=== PATIENT | male | born 1945 | race Caucasian/White ===

== ENCOUNTER 2017-07-22 15:24 | Outpatient (CLI) | payer MEDICARE, OTHER | END 2017-07-22 15:25 | disposition home or self-care (01) | LOC: BICULT 15:24 | PROVIDERS: ATTEND Specialist | DX: R10.9 Unspecified abdominal pain (principal); N28.1 Cyst of kidney, acquired; Z95.5 Presence of coronary angioplasty implant and graft | CPT/HCPCS: 76700 ==

== ENCOUNTER 2017-11-05 16:31 | Outpatient (CLI) | payer MEDICARE, OTHER | END 2017-11-05 16:32 | disposition home or self-care (01) | LOC: BICRAD 16:31 | PROVIDERS: ATTEND Specialist | DX: M25.512 Pain in left shoulder (principal); M19.012 Primary osteoarthritis, left shoulder ==

== ENCOUNTER 2018-01-30 08:45 | Inpatient (IN) | payer MEDICARE ==
[2018-01-30 12:41] VITALS: BMI 38.0
--- NOTE | 2018-02-07 08:29 | HP ---
DATE OF ADMISSION: 02/10/2018 HISTORY OF PRESENT ILLNESS: The patient is a 72-year-old male who has a several-month history of pro gressive left hip, thigh and knee pain without injury. He has had progressive pain despite rest, res triction of activities and use of a cane. The pain is interfering with day-to-day activities includi ng walking, getting dressed and sleeping. No significant relief with use of Mobic or Tylenol No. 3. PAST MEDICAL HISTORY: The patient is otherwise in good health. He has a history of hypertension, pr evious stroke, previous abdominal aortic aneurysm repair. He has been seen and cleared for surgery b yesenia Orta. CURRENT MEDICATIONS: Include hydralazine, bisoprolol, hydrochlorothiazide, meloxicam, 81 mg aspirin, multivitamins, Neurontin. ALLERGIES: He has no known allergies. FAMILY HISTORY/SOCIAL HISTORY/REVIEW OF SYSTEMS: Otherwise unremarkable. He underwent left total kn ee replacement by in 2010 and subsequently had right total knee replacement by Dr. Cho 2 years ag o. He continues to have intermittent pain in the right knee. PHYSICAL EXAMINATION: GENERAL: He is a healthy heavyset male. HEENT: Unremarkable. NECK: Supple. CHEST: Clear. HEART: Regular rate and rhythm. ABDOMEN: Soft, nontender. RECTAL/GENITAL: Deferred. EXTREMITIES: Pertinent findings of the left lower extremity, leg lengths are equal. There is tender ness in the left groin. There is decreased range of motion of the left hip secondary to pain and jennifer in pain with internal rotation. There is a left antalgic gait. Examination of his left knee reveals no swelling. There is normal alignment. There is no point tenderness. Range of motion is 0-120 de grees. There is no instability. Neurovascular exam is intact. There are no palpable pulses, but he has good capillary refill. LABORATORY AND X-RAY FINDINGS: X-rays of the left knee reveal a left total knee replacement in good position with no definite evidence of loosening, in good position. X-rays of his left hip reveal bon e on bone collapse of the left hip joint. IMPRESSION: 1. Degenerative arthritis, left hip. 2. Status post bilateral total knee replacements. 3. History of hypertension. 4. History of previous stroke. 5. History of abdominal aortic aneurysm repair. PLAN: Left total hip replacement. The nature of the surgery, length of recovery and potential compl ications such as infection, loss of motion, incomplete relief, neurovascular injury, thromboembolic p henomenon, leg length discrepancy, possible transfusion and need for revision have been discussed in detail.
[2018-02-10] MEDS ORDERED: Sodium Chloride 0.9% 100 ML ONE (06:20)
[2018-02-10] MEDS ORDERED: CEFAZOLIN/Water 2 GM/20 ML SYRINGE ONE (06:20)
[2018-02-10] MEDS ORDERED: Vancomycin HCl 1.5 GM in Sodium Chloride 0.9% 250 ML 300 ML IVPB SCH ×2 (06:30→19:00)
[2018-02-10] MEDS ORDERED: Fentanyl 100 MCG/2 ML VIAL ONE (06:42)
[2018-02-10] MEDS ORDERED: Midazolam HCl 2 mg/2 ml Vial ONE (06:42)
[2018-02-10] MEDS ORDERED: Bupivacaine HCl 0.5%/Epinephrine 1:200,000/PF 30 ml Vial ONE (07:19)
[2018-02-10] MEDS ORDERED: Promethazine HCl 25 MG/ML VIAL SLOW IVP PRN ×2 (08:17→12:03)
[2018-02-10] MEDS ORDERED: Promethazine HCl 25 MG/ML VIAL IM PRN ×2 (08:17→09:00)
[2018-02-10] MEDS ORDERED: Ondansetron HCl/PF 4 MG/2 ML Vial IVP PRN ×3 (08:17→12:03)
[2018-02-10] MEDS ORDERED: diphenhydrAMINE 50 MG/ML VIAL IVP PRN (09:00)
[2018-02-10] MEDS ORDERED: Naloxone HCl 0.4 mg/ml Vial IV PRN (09:00)
[2018-02-10] MEDS ORDERED: Hydrocerin (Eucerin) Cream 120 gm Jar TOP PRN (09:00)
[2018-02-10] MEDS ORDERED: Ketorolac Tromethamine 30 MG/ML VIAL IVP PRN (09:00)
[2018-02-10] MEDS ORDERED: fentaNYL Citrate/PF 1,250 MCG, Bupivacaine 25 ML in Sodium Chloride 0.9% 250 ML 200 ML EPIDURAL SCH (09:00)
[2018-02-10] MEDS ORDERED: Bupivacaine 0.25% 10 ML VIAL EPIDURAL PRN (09:00)
[2018-02-10] MEDS ORDERED: diphenhydrAMINE 25 MG CAP PO PRN ×2 (09:00→12:03)
[2018-02-10] MEDS ORDERED: Naloxone HCl 0.4 mg/ml Vial IVP PRN (09:00)
[2018-02-10] MEDS ORDERED: Zolpidem Tartrate 5 MG TAB PO PRN ×2 (09:00→12:03)
[2018-02-10] MEDS ORDERED: traMADol HCl 50 MG TAB PO PRN ×3 (09:00→12:03)
[2018-02-10] MEDS ORDERED: HYDROcodone/Acetaminophen 5/325 mg Tablet PO PRN ×2 (09:00)
[2018-02-10] MEDS ORDERED: Promethazine HCl 25 MG SUPP PR PRN (09:00)
[2018-02-10] MEDS ORDERED: diphenhydrAMINE 50 MG/ML VIAL IM PRN (09:00)
[2018-02-10] MEDS ORDERED: Tranexamic Acid 1,000 MG in Sodium Chloride 0.9% 100 ML IVPB SCH ×2 (09:30→12:03)
[2018-02-10] MEDS ORDERED: Fentanyl/Bupivacaine 100 ML EPIDURAL ONE (09:50)
--- NOTE | 2018-02-10 11:56 | RAD ---
LEFT HIP 2-3 VIEWS: Indication: Post op total hip evaluation. FINDINGS: Two views of the left hip reveals placement of left hip arthroplasty without evidence of acute hardwa re complication. IMPRESSION: No acute hardware complication of the post-operative left hip. POS: C
[2018-02-10] MEDS ORDERED: Topiramate 25 MG TAB PO SCH ×2 (12:03→12:45)
[2018-02-10] MEDS ORDERED: Ferrous Gluconate 324 MG TAB PO SCH ×2 (12:03→12:45)
[2018-02-10] MEDS ORDERED: Tamsulosin HCl 0.4 MG CAP PO SCH ×2 (12:03→12:45)
[2018-02-10] MEDS ORDERED: Multivitamin W/ Minerals 1 TAB PO SCH ×2 (12:03→12:45)
[2018-02-10] MEDS ORDERED: HYDROcodone/Acetaminophen 10/325 mg Tablet PO PRN (12:03)
[2018-02-10] MEDS ORDERED: Fentanyl 100 MCG/2 ML VIAL SLOW IVP PRN ×2 (12:03)
[2018-02-10] MEDS ORDERED: Hydrochlorothiazide 25 MG TAB PO SCH ×2 (12:03→12:45)
[2018-02-10] MEDS ORDERED: Aspirin 81 mg Enteric Coated Tablet PO SCH ×2 (12:03→12:30)
[2018-02-10] MEDS ORDERED: Senokot S 8.6-50 MG TAB PO SCH ×2 (12:03→12:45)
[2018-02-10] MEDS ORDERED: Acetaminophen 325 MG TAB PO PRN (12:03)
[2018-02-10] MEDS ORDERED: Citalopram 20 MG TAB PO SCH ×2 (12:03→12:45)
[2018-02-10] MEDS ORDERED: CEFAZOLIN/Water 2 GM/20 ML SYRINGE SLOW IVP SCH (12:03)
[2018-02-10] MEDS ORDERED: Non-Formulary Item 1 EACH (Hydralazine Hcl [Hydralazine Hcl] 50 MG) PO SCH (12:03)
--- NOTE | 2018-02-10 12:13 | OP ---
DATE OF PROCEDURE: 02/10/2018 SURGEON: Luis M Bourne M.D. ROUNDING MACHINE TENDER: Payal Deshpande PA-C. ANESTHESIA: General plus epidural. PREOPERATIVE DIAGNOSIS: Degenerative arthritis, left hip. POSTOPERATIVE DIAGNOSIS: Degenerative arthritis, left hip. PROCEDURES: Left total hip replacement with uncemented [place] Trident PSL acetabular component 58 m m with X3 polyethylene insert and uncemented [place] Accolade femoral stem size 4.5 with 132-degree n rob angle and 36 mm metal head, standard neck length. NARRATIVE REPORT: After satisfactory anesthesia was induced in supine position, the patient was plac ed in the lateral decubitus position and this position was held with the hip positioning device. Seq uential compression device was placed on the non-operative leg throughout the procedure. The patient 's left hip was then prepped and draped in routine sterile fashion. Left hip was approached through a lateral curvilinear incision, centered over the greater trochanter and carried down to subcutaneous tissues, and bleeding points controlled with Bovie cautery. IT band and gluteal fascia were split i n line with skin incision. The direct lateral approach to the hip joint was accomplished by dividing the anterior third of the gluteus medius and minimus tendons with Bovie cautery and reflecting this as a single flap anteriorly and medially along with the vastus lateralis. Anterior capsulectomy was performed. The hip was dislocated anteriorly. There was marked degenerative arthritis of the hip wi th large areas of exposed bone. The femoral neck was osteotomized with an oscillating saw using a tr ial prosthesis as a guide. Acetabulum was exposed and cleaned of all soft tissue and debris and then reamed in sequence with power reamers down to bleeding subchondral bone to a total diameter of 58 mm . It was felt that a 58 mm Trident PSL outer shell could be placed in a press fit fashion. The perm anent component was then hammered in position and there was good fit and stability of the shell and t he permanent X3 polyethylene liner was snapped into position and the proximal femur exposed. It was opened with a box osteotome, then rasped in sequence to accept a #4.5 Accolade femoral rasp. Trial r eduction with the 132-degree neck angle and standard neck length 36 mm femoral head trial gave approp riate size, fit, stability, and maintenance of leg length. Hip was again dislocated anteriorly. The trial components removed. The permanent Accolade 4.5 femoral stem was then hammered in position. T here was again good fit and stability of the component. The permanent standard neck length 36 mm met al head was then placed on the trunnion and the hip again reduced and found to be stable. The hip wa s copiously irrigated with pulsatile lavage. The abductors were repaired with interrupted #2 Vicryl. IT band and gluteal fascia were closed with interrupted 2-0 Vicryl and a running #2 Quill. Subcuta neous tissues were closed with interrupted #2-0 Vicryl and a running 0 Quill. Skin was closed with r unning subcuticular 3-0 Monoderm and SurgiSeal skin adhesive. Sterile dressing was applied. The pat ient turned to supine position. A pillow was placed between his legs and sequential compression maribeth ce applied to the operated leg. He was awakened and taken to recovery room in stable condition. The re were no apparent intraoperative complications. The estimated blood loss was 300 mL.
[2018-02-10] MEDS ORDERED: hydrALAZINE 25 MG TAB PO SCH (12:45)
[2018-02-10] MEDS: CEFAZOLIN/Water 2 GM/20 ML SYRINGE SLOW IVP SCH (13:51)
[2018-02-10] MEDS: Sodium Chloride 0.9% 1,000 ML IV SCH (13:56)
[2018-02-10] MEDS ORDERED: ePHEDrine/0.9% NaCl/PF SYRINGE 50 mg/10 ml ONE (14:53)
[2018-02-10] MEDS ORDERED: Lidocaine 1% PF 5 ML VIAL ONE (14:53)
[2018-02-10] MEDS ORDERED: Ondansetron HCl/PF 4 MG/2 ML Vial ONE (14:53)
[2018-02-10] MEDS ORDERED: PROPOFOL 200 MG/20 ML VIAL ONE (14:53)
[2018-02-10] MEDS ORDERED: Glycopyrrolate 0.2 MG/ML 5 ML SYRINGE ONE (14:53)
[2018-02-10] MEDS: Senokot S 8.6-50 MG TAB PO SCH (21:42)
[2018-02-10] MEDS: Aspirin 81 mg Enteric Coated Tablet PO SCH (21:42)
[2018-02-10] MEDS: Topiramate 25 MG TAB PO SCH (21:43)
[2018-02-10] MEDS: hydrALAZINE 25 MG TAB PO SCH (21:43)
[2018-02-10] MEDS: Ferrous Gluconate 324 MG TAB PO SCH (21:43)
[2018-02-11] MEDS: CEFAZOLIN/Water 2 GM/20 ML SYRINGE SLOW IVP SCH (00:26)
[2018-02-11 05:46] LABS: Hemoglobin 13.1 g/dL (14.0-18.0); Mean Corpuscular HGB CONC 32.6 g/dL (32.0-36.0); Mean Corpuscular Hemoglobin 32.9 pg (27.0-31.0); Mean Platelet Volume 7.6 fL (7.4-10.4); Platelet Count 143 thou/uL (130-400); RBC Distribution Width 14.6 % (11.5-14.5); Red Blood Cell (RBC) Count 3.97 mill/uL (4.70-6.10); White Blood Cell (WBC) Count 11.9 thou/uL (4.8-10.8)
[2018-02-11] MEDS: HYDROcodone/Acetaminophen 10/325 mg Tablet PO PRN ×2 (06:08→20:53)
[2018-02-11] MEDS: Sodium Chloride 0.9% 1,000 ML IV SCH ×2 (08:17→16:27)
--- NOTE | 2018-02-11 08:20 | CON ---
DATE OF CONSULTATION: 02/10/2018 CHIEF COMPLAINT: Left hip replacement. Medical management. HISTORY OF PRESENT ILLNESS: The patient is a 72-year-old male who had been seeing Dr. Landin for outp atient management of horrible left hip pain for quite some time. X-rays finally revealed that it was bone on bone and he was referred to Dr. Bourne for a surgical option. Dr. Bourne then performed a tot al left hip replacement on 02/10/2018 and I have been asked to help manage him medically. PAST MEDICAL HISTORY: Significant for previous abdominal aortic aneurysm repair. Dr. Orta has bee n his sample tailor. He has also had hypertension, morbid obesity, and the aforementioned diffuse ost eoarthritis in various locations including the left hip. Renal cyst and adenoma and a bone disease of his groin. BPH. Anxiety/depression. Obstructive sleep apnea on CPAP. PAST SURGICAL HISTORY: Only the abdominal aortic aneurysm repair. He has also had knee replacement. ALLERGIES: None. CURRENT MEDICATIONS ON ADMISSION: Citalopram 20 mg once a day, hydralazine 50 mg b.i.d., hydrochloro thiazide 25 mg daily, Meloxicam 15 mg daily, metoprolol succinate 100 mg every day, tamsulosin 0.4 mg daily, and topiramate 25 mg p.o. b.i.d. REVIEW OF SYSTEMS: At the time of admission GENERAL: Denies fever, malaise or illness. HEENT: Denies drainage from his ears, nose or throat or ulcerations or lesions. CHEST: Denies shortness of breath or cough. CARDIOVASCULAR: Denies palpitations or chest pain. ABDOMEN: Denies nausea, vomiting, diarrhea. GENITOURINARY: He does have diminished stream and erectile dysfunction, but other than that has no b lood in urine or stool or painful defecation. EXTREMITIES: Significant for the pain in his left hip and generalized knee pain. No other specific complaints. SKIN: No new rashes or lesions. NEUROLOGIC: Denies headaches, blurred vision, trouble with mentation. PHYSICAL EXAMINATION: VITAL SIGNS: At the time of admission blood pressure is 133/70, pulse 67, temperature 99.3, respirat ions 18, O2 sat 94%. HEENT: Normocephalic and atraumatic. Pupils are equal, round, and reactive to light. Extraocular m uscles are intact. Arcus senilis bilaterally. TMs, nares, pharynx are clear. NECK: Supple, trachea midline, no bruits. CHEST: Clear to auscultation. HEART: Regular rate and rhythm, no murmur. ABDOMEN: Obese, unable to appreciate organomegaly. GENITOURINARY: Deferred. EXTREMITIES: Without clubbing, cyanosis, or edema, diminished range of motion of the left hip due to arthritic pain. SKIN: Without acute rashes or lesions. NEUROLOGIC: Cranial nerves are intact. Gait and cerebellar function intact. Sensory exam is intact . Mental status is baseline and nonfocal. SKIN: No new rashes or lesions. LABORATORY AND X-RAY FINDINGS: Lab work thus far shows a WBC 11.9, hemoglobin 13.1, hematocrit 40.1 with platelets diminished at 143. ASSESSMENT: 1. Severe osteoarthritis, left hip, status post left total hip replacement, postoperative day #2. 2. Hypertension. 3. Obstructive sleep apnea. 4. Morbid obesity. PLAN: Plan needs to include early ambulation, pain management, serial reevaluation. We will maintai n him on his usual medications.
[2018-02-11] MEDS ORDERED: diphenhydrAMINE 50 MG/ML VIAL IM PRN (08:30)
[2018-02-11] MEDS ORDERED: Promethazine HCl 25 MG SUPP PR PRN (08:30)
[2018-02-11] MEDS ORDERED: HYDROcodone/Acetaminophen 5/325 mg Tablet PO PRN (08:30)
[2018-02-11] MEDS ORDERED: Naloxone HCl 0.4 mg/ml Vial IV PRN (08:30)
[2018-02-11] MEDS ORDERED: diphenhydrAMINE 25 MG CAP PO PRN (08:30)
[2018-02-11] MEDS ORDERED: traMADol HCl 50 MG TAB PO PRN ×2 (08:30)
[2018-02-11] MEDS ORDERED: Zolpidem Tartrate 5 MG TAB PO PRN (08:30)
[2018-02-11] MEDS ORDERED: Ketorolac Tromethamine 30 MG/ML VIAL IVP PRN (08:30)
[2018-02-11] MEDS ORDERED: Hydrocerin (Eucerin) Cream 120 gm Jar TOP PRN (08:30)
[2018-02-11] MEDS ORDERED: diphenhydrAMINE 50 MG/ML VIAL IVP PRN (08:30)
[2018-02-11] MEDS ORDERED: Naloxone HCl 0.4 mg/ml Vial IVP PRN (08:30)
[2018-02-11] MEDS ORDERED: Ondansetron HCl/PF 4 MG/2 ML Vial IVP PRN (08:30)
[2018-02-11] MEDS ORDERED: Promethazine HCl 25 MG/ML VIAL IM PRN (08:30)
[2018-02-11] MEDS: Aspirin 81 mg Enteric Coated Tablet PO SCH ×2 (09:40→20:48)
[2018-02-11] MEDS: Citalopram 20 MG TAB PO SCH (09:41)
[2018-02-11] MEDS: Ferrous Gluconate 324 MG TAB PO SCH ×2 (09:41→20:49)
[2018-02-11] MEDS: Hydrochlorothiazide 25 MG TAB PO SCH (09:42)
[2018-02-11] MEDS: hydrALAZINE 25 MG TAB PO SCH ×2 (09:42→20:47)
[2018-02-11] MEDS: Topiramate 25 MG TAB PO SCH ×2 (09:43→20:52)
[2018-02-11] MEDS: Multivitamin W/ Minerals 1 TAB PO SCH (09:43)
[2018-02-11] MEDS: Senokot S 8.6-50 MG TAB PO SCH ×2 (09:43→20:48)
[2018-02-11] MEDS: Tamsulosin HCl 0.4 MG CAP PO SCH (09:43)
[2018-02-11] MEDS: Milk Of Magnesia 30 ML UDCUP PO PRN (16:39)
[2018-02-11] MEDS: Fentanyl/Bupivacaine 100 ML EPIDURAL SCH (22:35)
[2018-02-12] MEDS: Sodium Chloride 0.9% 1,000 ML IV SCH ×2 (03:27→07:44)
[2018-02-12 06:29] LABS: #Basophils 0.1 thou/uL (0.0-0.2); #Eosinphils 0.1 thou/uL (0.0-0.7); #Lymphocytes 1.5 thou/uL (1.20-3.40); #Monocytes 1.2 thou/uL (0.11-0.59); #Neutrophils 7.1 thou/uL (1.40-6.50); %Basophils 0.5 % (0.0-1.0); %Eosinophils 1.2 % (0.0-10.0); %Lymphocytes 15.2 % (21.0-51.0); %Monocytes 11.9 % (0.0-10.0); %Neutrophils 71.1 % (42.0-75.0); Hemoglobin 11.8 g/dL (14.0-18.0); Mean Corpuscular HGB CONC 32.5 g/dL (32.0-36.0); Mean Platelet Volume 7.8 fL (7.4-10.4); Platelet Count 127 thou/uL (130-400); RBC Distribution Width 14.7 % (11.5-14.5); Red Blood Cell (RBC) Count 3.58 mill/uL (4.70-6.10)
[2018-02-12 06:46] LABS: Anion Gap 9 mmol/L (10-20); BUN (Urea Nitrogen) 29 mg/dL (8.4-25.7); Calc. Creatinine Clearance 67 mL/min (70-130); Carbon Dioxide 28 mmol/L (23-31); Chloride 100 mmol/L (98-107); Estimated GFR-MDRD 41; Glucose 97 mg/dL (83-110); Potassium 3.3 mmol/L (3.5-5.1); Sodium 134 mmol/L (136-145)
[2018-02-12] MEDS: Polyethylene Glycol 3350 17 GM Packet PO SCH (08:54)
[2018-02-12] MEDS: hydrALAZINE 25 MG TAB PO SCH ×2 (08:54→20:06)
[2018-02-12] MEDS: Tamsulosin HCl 0.4 MG CAP PO SCH (08:54)
[2018-02-12] MEDS: Ferrous Gluconate 324 MG TAB PO SCH ×2 (08:55→20:08)
[2018-02-12] MEDS: Hydrochlorothiazide 25 MG TAB PO SCH (08:55)
[2018-02-12] MEDS: Multivitamin W/ Minerals 1 TAB PO SCH (08:55)
[2018-02-12] MEDS: Citalopram 20 MG TAB PO SCH (08:55)
[2018-02-12] MEDS: Aspirin 81 mg Enteric Coated Tablet PO SCH ×2 (08:55→20:07)
[2018-02-12] MEDS: Senokot S 8.6-50 MG TAB PO SCH ×2 (08:55→20:07)
[2018-02-12] MEDS: Topiramate 25 MG TAB PO SCH ×2 (08:56→20:08)
[2018-02-12] MEDS: Fentanyl/Bupivacaine 100 ML EPIDURAL SCH (11:50)
[2018-02-12] MEDS: HYDROcodone/Acetaminophen 5/325 mg Tablet PO PRN ×2 (12:54→20:08)
[2018-02-13] MEDS: Sodium Chloride 0.9% 1,000 ML IV SCH ×2 (01:00→17:08)
[2018-02-13] MEDS: Milk Of Magnesia 30 ML UDCUP PO PRN (06:20)
[2018-02-13] MEDS: hydrALAZINE 25 MG TAB PO SCH (09:54)
[2018-02-13] MEDS: Hydrochlorothiazide 25 MG TAB PO SCH (09:54)
[2018-02-13] MEDS: Aspirin 81 mg Enteric Coated Tablet PO SCH ×2 (09:55→09:56)
[2018-02-13] MEDS: Ferrous Gluconate 324 MG TAB PO SCH (09:56)
[2018-02-13] MEDS: Citalopram 20 MG TAB PO SCH (09:56)
[2018-02-13] MEDS: Multivitamin W/ Minerals 1 TAB PO SCH (09:57)
[2018-02-13] MEDS: Tamsulosin HCl 0.4 MG CAP PO SCH (09:57)
[2018-02-13] MEDS: Senokot S 8.6-50 MG TAB PO SCH (09:57)
[2018-02-13] MEDS: Polyethylene Glycol 3350 17 GM Packet PO SCH (09:57)
[2018-02-13] MEDS: Topiramate 25 MG TAB PO SCH (09:59)
[2018-02-13] MEDS: HYDROcodone/Acetaminophen 5/325 mg Tablet PO PRN (10:05)
[2018-02-13 12:44] VITALS: BP 115/61; TEMP 98.2
== END 2018-02-13 15:15 | disposition home or self-care (01) | DRG 470 ==
LOC: SURG A 02-10 05:54 → SURG B 02-10 10:13
PROVIDERS: ADMIT Orthopaedic Surgery; ATTEND Orthopaedic Surgery
PROC: 0SRB04A Replacement of Left Hip Joint with Ceramic on Polyethylene Synthetic Substitute, Uncemented, Open Approach (ICD-10-PCS; principal; 2018-02-10)
DX: M16.12 Unilateral primary osteoarthritis, left hip (principal); Z79.899 Other long term (current) drug therapy; Z79.82 Long term (current) use of aspirin; Z86.73 Personal history of transient ischemic attack (TIA), and cerebral infarction without residual deficits; I10 Essential (primary) hypertension; G47.33 Obstructive sleep apnea (adult) (pediatric); Z68.38 Body mass index [BMI] 38.0-38.9, adult; E66.01 Morbid (severe) obesity due to excess calories; Z96.653 Presence of artificial knee joint, bilateral
CPT/HCPCS: 36415; 80048; 85025; 85027; 86850; 86900; 86901; C1776; G8978-GP-CK; G8979-GP-CI; G8987-GO-CK; G8988-GO-CI; J0670; J1200; J2001; J2250; J2405; J2704; J3010; J3370; J3490; J7050

== ENCOUNTER 2018-01-30 10:01 | Outpatient (CLI) | payer MEDICARE ==
[2018-01-30 10:32] LABS: Bilirubin Negative (Negative); Blood, Urine Negative (Negative); Clarity CLEAR (Clear); Glucose, Urine (Dipstick) Negative (Negative); Leukocyte Small (Negative); Nitrite Negative (Negative); Protein, Urine (Dipstick) 100 mg/dL (Neg-Trace); Specific Gravity, Urine 1.026 (1.002-1.036); Urobilinogen 0.2 mg/dL (0.2-1.0)
[2018-01-30 10:46] LABS: Bacteria/HPF None Seen HPF (None Seen); Hyaline Casts/LPF 0-3 HYALINE CAST LPF (0-3 Hyaline); Squamous Epithelial 0-3 HPF (0-3); WBC/HPF 0-3 HPF (0-3)
[2018-01-30 10:57] LABS: RBC/HPF None Seen HPF (0-3)
== END 2018-01-30 10:02 | disposition home or self-care (01) ==
LOC: LABBT 10:01
PROVIDERS: ATTEND Orthopaedic Surgery
DX: Z01.818 Encounter for other preprocedural examination (principal); M16.12 Unilateral primary osteoarthritis, left hip
CPT/HCPCS: 81001; 87081; 93005; 93010

== ENCOUNTER 2018-07-03 20:42 | Inpatient (IN) | payer MEDICARE ==
[2018-07-03] MEDS ORDERED: Piperacillin/Tazobactam 3.375 GM VIAL ONE (21:15)
[2018-07-03 21:33] LABS: #Basophils 0.1 thou/uL (0.0-0.2); #Eosinphils 0.1 thou/uL (0.0-0.7); #Lymphocytes 0.9 thou/uL (1.20-3.40); #Monocytes 0.7 thou/uL (0.11-0.59); #Neutrophils 9.1 thou/uL (1.40-6.50); %Basophils 0.5 % (0.0-1.0); %Eosinophils 1.1 % (0.0-10.0); %Lymphocytes 7.9 % (21.0-51.0); %Monocytes 6.4 % (0.0-10.0); %Neutrophils 84.2 % (42.0-75.0); Hemoglobin 12.4 g/dL (14.0-18.0); Mean Corpuscular HGB CONC 32.8 g/dL (32.0-36.0); Mean Platelet Volume 6.9 fL (7.4-10.4); Platelet Count 154 thou/uL (130-400); RBC Distribution Width 13.8 % (11.5-14.5); Red Blood Cell (RBC) Count 3.75 mill/uL (4.70-6.10); White Blood Cell (WBC) Count 10.8 thou/uL (4.8-10.8)
[2018-07-03 21:34] LABS: Bilirubin Negative (Negative); Blood, Urine Negative (Negative); Clarity CLEAR (Clear); Glucose, Urine (Dipstick) Negative (Negative); Leukocyte Negative (Negative); Nitrite Negative (Negative); Protein, Urine (Dipstick) 100 mg/dL (Neg-Trace); Specific Gravity, Urine 1.016 (1.002-1.036); Urobilinogen 0.2 mg/dL (0.2-1.0); pH, Urine 6.5 (5.0-9.0)
[2018-07-03 21:35] LABS: Bacteria/HPF None Seen HPF (None Seen); Hyaline Casts/LPF 0-3 HYALINE CAST LPF (0-3 Hyaline); Pathc Cast-AUWi Flag 0.27 (0-2.49); Squamous Epithelial None Seen HPF (0-3); WBC/HPF 0-3 HPF (0-3)
[2018-07-03] MEDS ORDERED: Acetaminophen 500 MG TAB ONE (21:36)
[2018-07-03 21:40] LABS: INR-International Normal Ratio 1.1; PTT 25.2 SEC (22.9-36.1); Prothrombin Time 13.8 SEC (12.0-14.7)
[2018-07-03 21:53] LABS: ALT (SGPT) 20 U/L (8-55); AST (SGOT) 21 U/L (5-34); Albumin 3.8 g/dL (3.4-4.8); Alkaline Phosphatase 76 U/L (40-150); Anion Gap 11 mmol/L (10-20); BUN (Urea Nitrogen) 25 mg/dL (8.4-25.7); Bilirubin, Total 0.4 mg/dL (0.2-1.2); CK (CPK) 66 U/L (30-200); Calc. Creatinine Clearance 0 mL/min (70-130); Calcium 9.2 mg/dL (7.8-10.44); Carbon Dioxide 27 mmol/L (23-31); Chloride 105 mmol/L (98-107); Estimated GFR-MDRD 46; Globulin 3.6 g/dL (2.4-3.5); Glucose 84 mg/dL (83-110); Lipase 41 U/L (8-78); Potassium 4.1 mmol/L (3.5-5.1); Protein, Total 7.4 g/dL (5.8-8.1); Sodium 139 mmol/L (136-145)
--- NOTE | 2018-07-03 22:58 | RAD ---
PORTABLE AP CHEST X-RAY 07/03/18 HISTORY: Fever. COMPARISON: 05/11/14. FINDINGS: The cardiac silhouette is magnified by projection but is stable in size compared to prior study. Ther e is prominence of the right hilar structures which is stable from the prior study and likely related to prominence of the central pulmonary artery segment. Vascular calcifications seen in the thoracic aorta. The lungs are clear. There has been no interval change from prior exam. IMPRESSION: Stable chest without evidence of an acute cardiopulmonary process. POS: [facility]
[2018-07-03] MEDS ORDERED: Ondansetron PF 4 MG/2 ML Vial IVP PRN (23:21)
[2018-07-03] MEDS ORDERED: Ondansetron ODT 8 MG TAB SL PRN (23:22)
--- NOTE | 2018-07-03 23:24 | RAD ---
TWO VIEWS LEFT TIBIA AND FIBULA: 07/03/18 HISTORY: Cellulitis. COMPARISON: None available. FINDINGS: Left total knee prosthesis is noted without evidence of hardware complication. No fracture or disloc ation is seen involving the left tibia or fibula. There appears to be diffuse subcutaneous edema about the left lower extremity which may correlate wi th the patient's history of cellulitis. Vascular calcifications are seen posterior to the knee. IMPRESSION: 1. No acute osseous abnormality left tibia or fibula. 2. Left total knee prosthesis. 3. Subcutaneous edema left lower extremity which may correspond to patient's reported history of cellulitis. POS: [facility]
[2018-07-04] MEDS: Acetaminophen 325 MG TAB PO PRN ×4 (01:05→20:38)
[2018-07-04] MEDS ORDERED: Piperacillin/Tazobactam 3.375 GM in Sodium Chloride 0.9% 100 ML IVPB SCH (03:00)
[2018-07-04] MEDS ORDERED: Sodium Chloride 0.9% 1,000 ML IV SCH ×2 (03:15→08:00)
[2018-07-04 06:30] LABS: #Monocytes 0.9 thou/uL (0.11-0.59); #Neutrophils 12.1 thou/uL (1.40-6.50); %Basophils 0.2 % (0.0-1.0); %Eosinophils 0.2 % (0.0-10.0); %Lymphocytes 7.3 % (21.0-51.0); %Monocytes 6.3 % (0.0-10.0); %Neutrophils 86.1 % (42.0-75.0); Hemoglobin 11.1 g/dL (14.0-18.0); Mean Corpuscular HGB CONC 32.6 g/dL (32.0-36.0); Mean Corpuscular Hemoglobin 32.6 pg (27.0-31.0); Platelet Count 135 thou/uL (130-400); RBC Distribution Width 13.8 % (11.5-14.5); Red Blood Cell (RBC) Count 3.42 mill/uL (4.70-6.10); White Blood Cell (WBC) Count 14.1 thou/uL (4.8-10.8)
--- NOTE | 2018-07-04 07:50 | HP ---
CHIEF COMPLAINT ON ADMISSION: Left lower extremity cellulitis with sepsis. HISTORY OF PRESENT ILLNESS: The patient is a 73-year-old male who was eating at [employer] when suddenly he began to experience bilateral lower extremity weakness, shakes, and chills. EMS was called and noted him to have a [place] Coma scale of 15. His temperature is 103.3. He was brought to the emergency room where his left lower extremity was noted to be erythematous. He had had a previous treatment of erysepilas to that extremity about 3 weeks ago and completed his regime of antibiotics 1 week ago. No nausea, vomiting, diarrhea, chest pain, or shortness of breath. The patient placed in the hospital after cultures were taken and antibiotics begun for lower extremity cellulitis with sepsis. PAST MEDICAL HISTORY: Significant for hypertension, previous CVA, BPH, significant medical noncompliance, degenerative joint disease in the lower extremities. Obstructive sleep apnea on CPAP again with poor compliance, anxiety, depression. He has had a renal cyst and adenoma, morbid obesity. PAST SURGICAL HISTORY: His multiple surgeries include abdominal aortic aneurysm repair, left knee replacement. He most recently underwent a left total hip replacement performed in January 2018. ALLERGIES: HE HAS NO KNOWN DRUG ALLERGIES. MEDICATIONS ON ADMISSION: Include, 1. Citalopram 20 mg daily. 2. Hydralazine 50 mg b.i.d. 3. Hydrochlorothiazide 25 mg daily. 4. Metoprolol 100 mg daily. 5. Tamsulosin 0.4 mg daily. 6. Topamax 25 mg b.i.d. for weight loss. 7. Aricept 10 mg at noon. 8. He has previously been on Namenda 5 mg b.i.d. REVIEW OF SYSTEMS: CONSTITUTIONAL: Significant generally for fever and chills , and general weakness struck in while at [employer]. HEENT: Denies any visual changes, hearing changes, drainage from ear, nose, or throat. CHEST: Denies shortness of breath or cough. He is chronically dyspneic on minimal exertion. CARDIOVASCULAR: Denies chest pain or palpitations. ABDOMEN: Denies nausea, vomiting, or diarrhea. : Has trouble with frequency, but no blood in urine or stool. MUSCULOSKELETAL: Chronic lower extremity pain and edema with arthritis. SKIN: No acute rashes or lesions aside from the erythema of the left lower extremity. MUSCULOSKELETAL: Significant pain in all the major joints, particularly knees. NEUROLOGICAL: Significant for sundowning and confusion when exhausted late in the day. PHYSICAL EXAMINATION: At the time of admission, VITAL SIGNS: Blood pressure was 153/68, pulse 79, respirations 18, temperature 103.3 orally, pain scale is 0, O2 saturation 99% on room air. GENERAL: This is a morbidly obese male, alert, oriented, and cooperative. HEENT: Normocephalic and atraumatic with diminished. Pupil reactivity at 1 to 2 mm bilaterally. Arcus senilis bilaterally. TMs, nares, and pharynx are clear. NECK: Supple. Trachea midline. CHEST: The patient is noted to have some faint rales in right lower lobe versus atelectasis. HEART: Regular rate and rhythm. ABDOMEN: Obese. Unable to appreciate organomegaly. : Deferred. EXTREMITIES: With significant 3+ bilateral lower extremity edema and erythema in the left lower leg. Unable to appreciate peripheral pulses due to edema. NEUROLOGIC: Cranial nerves are intact. Sensory exam is intact. Gait and cerebellar function are untested. Mental status significant for mild confusion. LABORATORY DATA: On admission, WBCs 10.8, hemoglobin 12.4, hematocrit 37.7 with platelets at 154. Sodium 139, potassium 4.1, chloride 105, CO2 of 27, BUN 25, creatinine 1.48 with GFR 46, glucose 107. Liver functions unremarkable. Lipase 41. UA unremarkable. Chest x-ray shows no acute disease. Lower extremity x-ray tib-fib shows only soft tissue swelling. ASSESSMENT: 1. Left lower extremity cellulitis. 2. Early pneumonic process right lower lobe versus atelectasis. 3. Morbid obesity. 4. Obstructive sleep apnea. 5. Hypertension. 6. History of general medical noncompliance. 7. Early dementia. PLAN: Plan will be to continue IV antibiotics, serial re-evaluation, hydrate the patient, repeat chest x-ray as well as repeat blood cultures when temperature goes over 100, and serially re-evaluate the patient. Job ID: [id number] MTDD
[2018-07-04] MEDS: guaiFENesin ER 600 MG TAB PO SCH ×2 (08:30→20:38)
[2018-07-04] MEDS: Piperacillin/Tazobactam 3.375 GM in Sodium Chloride 0.9% 100 ML IVPB SCH ×3 (08:30→20:38)
[2018-07-04] MEDS: Tamsulosin HCl 0.4 MG CAP PO SCH (08:30)
[2018-07-04] MEDS: Aspirin Chewable 81 MG TAB PO SCH (08:30)
[2018-07-04] MEDS ORDERED: Furosemide 20 MG/2 ML VIAL SLOW IVP SCH (09:00)
[2018-07-04] MEDS ORDERED: Vancomycin HCl 1 GM in Premix Bag 1 BAG IVPB SCH (10:00)
[2018-07-04] MEDS: Donepezil HCl 10 MG TAB PO SCH (11:32)
[2018-07-04] MEDS: Vancomycin HCl 1.25 GM in Sodium Chloride 0.9% 250 ML 250 ML IVPB SCH ×4 (11:34→22:21)
--- NOTE | 2018-07-04 12:33 | EKG ---
Test Reason : Blood Pressure : / mmHG Vent. Rate : 078 BPM Atrial Rate : 078 BPM P-R Int : 188 ms QRS Dur : 146 ms QT Int : 396 ms P-R-T Axes : 030 -48 060 degrees QTc Int : 451 ms Normal sinus rhythm Left axis deviation Non-specific intra-ventricular conduction block Abnormal ECG Confirmed by LATOYA GILMORE DO ([id number]), supervising editor trailer YUE LAW ([id number]) on 07/04/2018 12:32:34 PM Referred By: Confirmed By:LATOYA GILMORE DO
--- NOTE | 2018-07-04 15:23 | RAD ---
RADIOGRAPH CHEST 2 VIEWS: Date: 07/04/18 Time: 1408 HOURS HISTORY: 73-year-old male with pneumonia. COMPARISON: 07/03/18. FINDINGS: There is cardiomegaly. There is mild pulmonary venous congestion, which appears slightly worse than o n the prior study. No pleural effusion, consolidation, pneumothorax, or pulmonary alveolar edema. IMPRESSION: 1. Cardiomegaly and mild pulmonary venous congestion. 2. No convincing evidence of pneumonia. SUSAN [] POS: [facility]
[2018-07-05] MEDS: Piperacillin/Tazobactam 3.375 GM in Sodium Chloride 0.9% 100 ML IVPB SCH ×4 (03:08→21:06)
[2018-07-05] MEDS: Acetaminophen 325 MG TAB PO PRN (03:09)
[2018-07-05] MEDS: Furosemide 40 MG/4 ML VIAL SLOW IVP SCH (09:19)
[2018-07-05] MEDS: guaiFENesin ER 600 MG TAB PO SCH ×2 (09:31→21:03)
[2018-07-05] MEDS: Aspirin Chewable 81 MG TAB PO SCH (09:31)
[2018-07-05] MEDS: Tamsulosin HCl 0.4 MG CAP PO SCH (09:31)
[2018-07-05 09:44] LABS: Anion Gap 11 mmol/L (10-20); BUN (Urea Nitrogen) 21 mg/dL (8.4-25.7); Calc. Creatinine Clearance 72 mL/min (70-130); Calcium 8.6 mg/dL (7.8-10.44); Carbon Dioxide 21 mmol/L (23-31); Chloride 108 mmol/L (98-107); Estimated GFR-MDRD 47; Glucose 90 mg/dL (83-110); Potassium 3.2 mmol/L (3.5-5.1); Sodium 137 mmol/L (136-145)
[2018-07-05 10:02] LABS: Vancomycin, Trough 18.7 ug/mL
[2018-07-05 10:03] LABS: #Eosinphils 0.1 thou/uL (0.0-0.7); #Lymphocytes 1.5 thou/uL (1.20-3.40); #Monocytes 0.7 thou/uL (0.11-0.59); #Neutrophils 7.8 thou/uL (1.40-6.50); %Eosinophils 1.1 % (0.0-10.0); %Lymphocytes 14.8 % (21.0-51.0); %Monocytes 6.9 % (0.0-10.0); %Neutrophils 77.2 % (42.0-75.0); Hemoglobin 11.1 g/dL (14.0-18.0); Mean Corpuscular HGB CONC 33.7 g/dL (32.0-36.0); Mean Corpuscular Hemoglobin 34.1 pg (27.0-31.0); Mean Platelet Volume 6.9 fL (7.4-10.4); Platelet Count 116 thou/uL (130-400); Platelet Morphology Comment Appears Decreased; Red Blood Cell (RBC) Count 3.24 mill/uL (4.70-6.10); White Blood Cell (WBC) Count 10.1 thou/uL (4.8-10.8)
[2018-07-05 10:04] LABS: MDiff Complete? YES
--- NOTE | 2018-07-05 10:51 | RAD ---
CHEST 2 VIEWS: Date: 07/05/18 HISTORY: Pneumonia. COMPARISON: 07/04/18. FINDINGS: Mild cardiomegaly with some mild vascular congestion, without confluent pneumonia, overt edema, or pl eural effusion. IMPRESSION: Cardiomegaly with mild vascular congestion. No confluent pneumonia. Atherosclerosis of aorta. No new process. POS: [facility]
[2018-07-05] MEDS: Vancomycin HCl 1.25 GM in Sodium Chloride 0.9% 250 ML 250 ML IVPB SCH ×2 (11:17→22:48)
[2018-07-05] MEDS: Donepezil HCl 10 MG TAB PO SCH (11:18)
[2018-07-05] MEDS ORDERED: Pot Chloride/Pot Bicarb/Cit Ac 25 mEq Effervescent Tablet PO SCH (12:00)
[2018-07-05] MEDS: Metoprolol Tartrate 50 MG TAB PO SCH (21:02)
[2018-07-06] MEDS: Piperacillin/Tazobactam 3.375 GM in Sodium Chloride 0.9% 100 ML IVPB SCH ×4 (03:09→20:30)
[2018-07-06 04:41] VITALS: BMI 35.8
[2018-07-06 07:15] LABS: #Eosinphils 0.3 thou/uL (0.0-0.7); #Lymphocytes 1.4 thou/uL (1.20-3.40); #Monocytes 0.7 thou/uL (0.11-0.59); #Neutrophils 5.1 thou/uL (1.40-6.50); %Basophils 0.6 % (0.0-1.0); %Eosinophils 3.5 % (0.0-10.0); %Monocytes 9.6 % (0.0-10.0); %Neutrophils 67.2 % (42.0-75.0); Hemoglobin 11.3 g/dL (14.0-18.0); Mean Platelet Volume 7.4 fL (7.4-10.4); Platelet Count 127 thou/uL (130-400); Red Blood Cell (RBC) Count 3.41 mill/uL (4.70-6.10); White Blood Cell (WBC) Count 7.6 thou/uL (4.8-10.8)
[2018-07-06 07:30] LABS: Anion Gap 10 mmol/L (10-20); BUN (Urea Nitrogen) 19 mg/dL (8.4-25.7); Calc. Creatinine Clearance 73 mL/min (70-130); Calcium 8.7 mg/dL (7.8-10.44); Carbon Dioxide 26 mmol/L (23-31); Chloride 108 mmol/L (98-107); Estimated GFR-MDRD 49; Glucose 92 mg/dL (83-110); Potassium 3.2 mmol/L (3.5-5.1); Sodium 141 mmol/L (136-145)
[2018-07-06] MEDS ORDERED: Pot Chloride/Pot Bicarb/Cit Ac 25 mEq Effervescent Tablet PO SCH (08:00)
[2018-07-06] MEDS: guaiFENesin ER 600 MG TAB PO SCH ×2 (08:50→20:30)
[2018-07-06] MEDS: Furosemide 40 MG/4 ML VIAL SLOW IVP SCH (08:50)
[2018-07-06] MEDS: Aspirin Chewable 81 MG TAB PO SCH (08:51)
[2018-07-06] MEDS: Tamsulosin HCl 0.4 MG CAP PO SCH (08:51)
[2018-07-06] MEDS: Vancomycin HCl 1.25 GM in Sodium Chloride 0.9% 250 ML 250 ML IVPB SCH ×2 (09:09→22:39)
[2018-07-06] MEDS: Donepezil HCl 10 MG TAB PO SCH (12:55)
[2018-07-06] MEDS: Pot Chloride/Pot Bicarb/Cit Ac 25 mEq Effervescent Tablet PO SCH (16:38)
[2018-07-06] MEDS: Metoprolol Tartrate 50 MG TAB PO SCH (20:30)
[2018-07-07] MEDS: Piperacillin/Tazobactam 3.375 GM in Sodium Chloride 0.9% 100 ML IVPB SCH ×2 (03:09→08:25)
[2018-07-07] MEDS: Aspirin Chewable 81 MG TAB PO SCH (08:24)
[2018-07-07] MEDS: Tamsulosin HCl 0.4 MG CAP PO SCH (08:25)
[2018-07-07] MEDS: guaiFENesin ER 600 MG TAB PO SCH ×2 (08:25→20:34)
[2018-07-07] MEDS: Furosemide 40 MG/4 ML VIAL SLOW IVP SCH (08:25)
[2018-07-07] MEDS: Pot Chloride/Pot Bicarb/Cit Ac 25 mEq Effervescent Tablet PO SCH ×2 (08:27→16:36)
[2018-07-07 09:42] LABS: #Eosinphils 0.4 thou/uL (0.0-0.7); #Lymphocytes 1.5 thou/uL (1.20-3.40); #Monocytes 0.4 thou/uL (0.11-0.59); #Neutrophils 3.4 thou/uL (1.40-6.50); %Basophils 0.4 % (0.0-1.0); %Eosinophils 6.4 % (0.0-10.0); %Lymphocytes 26.2 % (21.0-51.0); %Neutrophils 60.1 % (42.0-75.0); Hemoglobin 11.5 g/dL (14.0-18.0); Mean Corpuscular HGB CONC 32.1 g/dL (32.0-36.0); Mean Corpuscular Hemoglobin 32.9 pg (27.0-31.0); Mean Platelet Volume 7.3 fL (7.4-10.4); Platelet Count 137 thou/uL (130-400); RBC Distribution Width 13.8 % (11.5-14.5); Red Blood Cell (RBC) Count 3.48 mill/uL (4.70-6.10); White Blood Cell (WBC) Count 5.7 thou/uL (4.8-10.8)
[2018-07-07 09:55] LABS: Anion Gap 10 mmol/L (10-20); BUN (Urea Nitrogen) 16 mg/dL (8.4-25.7); Calc. Creatinine Clearance 79 mL/min (70-130); Carbon Dioxide 29 mmol/L (23-31); Chloride 105 mmol/L (98-107); Estimated GFR-MDRD 52; Glucose 91 mg/dL (83-110); Potassium 3.8 mmol/L (3.5-5.1); Sodium 140 mmol/L (136-145)
[2018-07-07 09:59] LABS: Vancomycin, Trough 31.3 ug/mL
[2018-07-07] MEDS: Donepezil HCl 10 MG TAB PO SCH (12:24)
[2018-07-07] MEDS: Metoprolol Tartrate 50 MG TAB PO SCH (20:35)
[2018-07-08 07:56] VITALS: BP 162/70; TEMP 98.1
[2018-07-08] MEDS: guaiFENesin ER 600 MG TAB PO SCH (08:03)
[2018-07-08] MEDS: Tamsulosin HCl 0.4 MG CAP PO SCH (08:04)
[2018-07-08] MEDS: Pot Chloride/Pot Bicarb/Cit Ac 25 mEq Effervescent Tablet PO SCH (08:04)
[2018-07-08] MEDS: Aspirin Chewable 81 MG TAB PO SCH (08:04)
[2018-07-08 09:04] LABS: #Eosinphils 0.3 thou/uL (0.0-0.7); #Lymphocytes 1.8 thou/uL (1.20-3.40); #Monocytes 0.5 thou/uL (0.11-0.59); #Neutrophils 4.4 thou/uL (1.40-6.50); %Basophils 0.5 % (0.0-1.0); %Eosinophils 4.8 % (0.0-10.0); %Lymphocytes 25.4 % (21.0-51.0); %Neutrophils 62.3 % (42.0-75.0); Hemoglobin 12.7 g/dL (14.0-18.0); Mean Corpuscular HGB CONC 32.5 g/dL (32.0-36.0); Mean Corpuscular Hemoglobin 33.2 pg (27.0-31.0); Mean Platelet Volume 7.1 fL (7.4-10.4); Platelet Count 174 thou/uL (130-400); RBC Distribution Width 13.8 % (11.5-14.5); Red Blood Cell (RBC) Count 3.82 mill/uL (4.70-6.10)
[2018-07-08 09:20] LABS: Anion Gap 14 mmol/L (10-20); BUN (Urea Nitrogen) 14 mg/dL (8.4-25.7); Calc. Creatinine Clearance 83 mL/min (70-130); Calcium 9.5 mg/dL (7.8-10.44); Carbon Dioxide 25 mmol/L (23-31); Chloride 106 mmol/L (98-107); Estimated GFR-MDRD 54; Glucose 98 mg/dL (83-110); Potassium 4.2 mmol/L (3.5-5.1); Sodium 141 mmol/L (136-145)
--- NOTE | 2018-07-10 07:23 | PQF ---
[employer]andy Maker Helper Crystal Reports Winform Viewer JOON PHELPS MICHAEL E MD [id number] [facility] [id number] CLINICAL DOCUMENTATION CLARIFICATION FORM: POST DISCHARGE Addendum to original discharge summary date: ____ Late entry note date: __ DATE: 07/10/2018 ATTN: Dr. Mushtaq Archuleta Please exercise your independent, professional judgment in responding to the clarification form. Clinical indicators are provided on the bottom of this form for your review Please check appropriate box(s) to clarify if the following diagnosis has been ruled in or ruled out: (CDI/Coding list diagnosis here) Can you please specify whether sepsis is ruled in or ruled out during this encounter? [ ] Ruled in diagnosis [ ] Continue to treat [ ] Resolved [ ] Ruled out diagnosis [ x ] Cannot rule out diagnosis [ x] Other diagnosis atypical pneumonia [ x ] Unable to determine For continuity of documentation, please document condition throughout progress notes and discharge summary. Thank You. CLINICAL INDICATORS - SIGNS / SYMPTOMS / LABS - H&P 07/04 by -''CC: Left lower extremity cellulitis with sepsis'' - H&P 07/[address] Landin-Physical Exam: - Extremities: with significant 3+ bilateral lower extremity edema and erythema in the left lower leg. Unable to appreciate peripheral pulse due to edema. - PN 07/[address] Geremias Landin-''+campylobacter'' - Laboratory 07/04 - WBC 14.1 thou/ uL - Vital signs 07/03 Temp 103.3, GA 79, RR 18, O2 Sat 99% - Blood culture 07/04 No Growth in 5 days - PN 07/06 pg 5 - Assessment - Atypical Pneumonia RISK FACTORS - Medical Noncompliance - H&P by Dr. Landin - Morbid Obesity - H&P by Dr. Landin - Hx of CVA H&P by Dr. Landin - Early Dementia H&P by Dr. Landin TREATMENTS - Zosyn 3.375 gm IV JUN 22 - Vancomycin 1gm IV JUN 22 - IV Fluids- JUN (This form is maintained as a part of the permanent medical record) 2014 [employer]. All Rights Reserved [email or web address] [not provided] MTDD
== END 2018-07-08 10:15 | disposition home or self-care (01) | DRG 871 ==
LOC: ERS 20:42 → T4-B 22:15
PROVIDERS: ADMIT Specialist; ATTEND Specialist
DX: A41.9 Sepsis, unspecified organism (principal); J18.9 Pneumonia, unspecified organism; L03.116 Cellulitis of left lower limb; A04.5 Campylobacter enteritis; Z86.73 Personal history of transient ischemic attack (TIA), and cerebral infarction without residual deficits; N40.0 Benign prostatic hyperplasia without lower urinary tract symptoms; Z91.19 Patient's noncompliance with other medical treatment and regimen; M19.90 Unspecified osteoarthritis, unspecified site; G47.33 Obstructive sleep apnea (adult) (pediatric); E66.01 Morbid (severe) obesity due to excess calories; Z79.899 Other long term (current) drug therapy; Z96.652 Presence of left artificial knee joint; Z96.642 Presence of left artificial hip joint; F03.90 Unspecified dementia, unspecified severity, without behavioral disturbance, psychotic disturbance, mood disturbance, and anxiety; I11.0 Hypertensive heart disease with heart failure; I50.9 Heart failure, unspecified; E87.6 Hypokalemia; Z68.34 Body mass index [BMI] 34.0-34.9, adult; Z79.82 Long term (current) use of aspirin; F32.9 Major depressive disorder, single episode, unspecified; F41.9 Anxiety disorder, unspecified
CPT/HCPCS: 36415; 36416; 71045; 71046; 80048; 80053; 80202; 81003; 81015; 82550; 83605; 83690; 83880; 85025; 85610; 85730; 87040; 87045; 87046; 87086; 87324; 87449; 87804; 87899; 93005; 93306; 94640; 96365; 96367; J1940; J2543; J3370; J7050; J7620

== ENCOUNTER 2018-08-04 19:36 | Inpatient (IN) | payer MEDICARE ==
[2018-08-04] MEDS ORDERED: Lidocaine 1% w/Epinephrine 1:100K 20 ML VIAL ONE (20:55)
[2018-08-04] MEDS ORDERED: Adacel (T-DAP) 0.5 ML SYRINGE ONE (21:06)
--- NOTE | 2018-08-04 21:46 | CT ---
EXAM: Brain CT scan Without contrast: HISTORY: Head injury following a fall patient on aspirin COMPARISON: 11/17/2015 FINDINGS: Atrophy and chronic white matter ischemic change. No focal mass or midline shift. There is evidence for mostly subarachnoid hemorrhage with a probable tiny amount of subdural hemorrha ge on the right including the right temporal lobe and extending into the right parietal lobe and posterior frontal lobe region. There is some minimal focal loss of right-sided associated cortical [facility] [facility]. There is left-sided atrophy and chronic white matter ischemic changes which is stable. Small areas of old left frontal and parietal cortical infarction. Small metallic density foreign body in the left anterior orbital region, stable. IMPRESSION: Evidence for right posterior frontal, temporal, and parietal mostly subarachnoid hemorrhage without s ignificant mass effect or midline shift. Stable left-sided atrophy. Findings discussed with Dr. Quach in the emergency room at 9:38 PM CODE CR
[2018-08-04 22:01] LABS: #Basophils 0.1 thou/uL (0.0-0.2); #Eosinphils 0.3 thou/uL (0.0-0.7); #Lymphocytes 1.8 thou/uL (1.20-3.40); #Monocytes 0.8 thou/uL (0.11-0.59); #Neutrophils 4.4 thou/uL (1.40-6.50); %Basophils 0.9 % (0.0-1.0); %Lymphocytes 24.6 % (21.0-51.0); %Monocytes 10.6 % (0.0-10.0); %Neutrophils 59.8 % (42.0-75.0); Hemoglobin 12.2 g/dL (14.0-18.0); Mean Corpuscular Hemoglobin 33.3 pg (27.0-31.0); Mean Platelet Volume 7.1 fL (7.4-10.4); Platelet Count 152 thou/uL (130-400); RBC Distribution Width 14.4 % (11.5-14.5); Red Blood Cell (RBC) Count 3.67 mill/uL (4.70-6.10); White Blood Cell (WBC) Count 7.3 thou/uL (4.8-10.8)
[2018-08-04 22:08] LABS: PTT 27.8 SEC (22.9-36.1); Prothrombin Time 13.4 SEC (12.0-14.7)
[2018-08-04 22:23] LABS: ALT (SGPT) 18 U/L (8-55); AST (SGOT) 34 U/L (5-34); Albumin 3.7 g/dL (3.4-4.8); Alkaline Phosphatase 69 U/L (40-150); Anion Gap 14 mmol/L (10-20); BUN (Urea Nitrogen) 58 mg/dL (8.4-25.7); Bilirubin, Total 0.3 mg/dL (0.2-1.2); Calc. Creatinine Clearance 0 mL/min (70-130); Calcium 9.8 mg/dL (7.8-10.44); Carbon Dioxide 26 mmol/L (23-31); Chloride 105 mmol/L (98-107); Estimated GFR-MDRD 31; Glucose 94 mg/dL (83-110); Potassium 4.2 mmol/L (3.5-5.1); Protein, Total 7.7 g/dL (5.8-8.1); Sodium 141 mmol/L (136-145)
--- NOTE | 2018-08-04 23:20 | HP ---
This is Ismael Holt PA-C dictating a report for Alli Hernandez MD. CONSULTATION: Neurosurgery, Dr. Johnson. HISTORY OF PRESENT ILLNESS: The patient is a 73-year-old man, who was leaving a movie theater when he tripped over the door ledge falling and hitting the right side of his forehead. The patient denies any loss of consciousness. He was brought to the emergency department where he underwent evaluation and examination and was noted to have a small subarachnoid hemorrhage in addition to a forehead laceration that was repaired in the emergency department. At which time, we were asked to evaluate the patient for admission and obtain neurosurgical consultations. Per neurosurgical recommendations, the patient will be admitted to the [facility] for serial neurologic exams and repeat head CT in the morning. ALLERGIES: NONE. CURRENT MEDICATIONS: Hydralazine, hydrochlorothiazide, topiramate, aspirin, metoprolol, tamsulosin, Namenda, benazepril. PAST MEDICAL HISTORY: Hypertension and BPH. PAST SURGICAL HISTORY: AAA repair, bilateral knee replacement, left hip replacement. SOCIAL HISTORY: The patient lives at home with his spouse. He quit smoking more than 10 years ago. Denies drug or alcohol use. 10-point review of systems is negative as otherwise stated. PHYSICAL EXAMINATION: VITAL SIGNS: Blood pressure 156/75, heart rate 58, respirations 17, oxygen saturation 99% on room air, and temperature is 97.9. GENERAL: The patient is resting comfortably in bed. He is awake, alert, and oriented x3. [place] Coma Scale is 15. HEENT: Head is normocephalic with a repaired laceration on the right temporal aspect of his forehead. Eyes, extraocular motion intact. PERRLA bilaterally. Ears are atraumatic without discharge. Nose atraumatic without discharge. Oropharynx is clear. NECK: Nontender. Trachea is midline. No JVD. CHEST: Clear to auscultation with good inspiratory and expiratory effort. HEART: Regular rate and rhythm. ABDOMEN: Soft, flat, nontender with active bowel sounds. PELVIS: Stable. EXTREMITIES: Neurovascularly intact x4. Bilateral lower extremities have 2 to 3+ pitting edema, which the patient states is currently "improved" from previously. BACK: Atraumatic and nontender. LABORATORY FINDINGS: White blood cell count 7.3, hemoglobin 12.2, hematocrit 37.0, platelets 152. Sodium 141, potassium 4.2, chloride 105, CO2 of 26, BUN 58, creatinine 2.11, glucose 94, INR 1.0. RADIOGRAPHIC FINDINGS: CT of the brain shows evidence of a right posterior frontal, temporal and parietal mostly subarachnoid hemorrhage without significant mass effect or midline shift. Stable left-sided atrophy. ASSESSMENT: 1. Status post ground level fall. 2. Subarachnoid hemorrhage. 3. Forehead laceration, repaired. 4. History of hypertension. 5. History of aspirin use. 6. Acute on chronic kidney injury. PLAN: Plan will be to admit the patient to the [facility] for serial exams, repeat head CT in the morning. We will hydrate the patient tonight. Hold his aspirin due to pulmonary toilet, gastritis, mechanical VTE prophylaxis. The patient will be examined by Neurosurgery tonight in the emergency department. The evaluation, examination, laboratory, and radiographic findings will be discussed with Dr. Hernandez after this dictation. Job ID: [id number]
[2018-08-04 23:58] VITALS: BP 150/74; BMI 36.1
[2018-08-05] MEDS ORDERED: diphenhydrAMINE 50 MG CAP PO PRN (00:44)
[2018-08-05] MEDS ORDERED: Acetaminophen 325 MG TAB PO PRN (00:44)
[2018-08-05] MEDS ORDERED: Milk Of Magnesia 30 ML UDCUP PO PRN (00:44)
[2018-08-05] MEDS ORDERED: Docusate 100 MG CAP PO PRN (00:44)
[2018-08-05] MEDS ORDERED: Mag-Al 1200 mg/1200 mg/30 ML UDCUP PO PRN (00:44)
[2018-08-05] MEDS ORDERED: hydrALAZINE 20 MG/ML VIAL SLOW IVP PRN ×2 (00:44→01:53)
[2018-08-05] MEDS ORDERED: Labetalol HCl 100 MG/20 ML VIAL SLOW IVP PRN (00:44)
[2018-08-05] MEDS ORDERED: Non-Formulary Item 1 EACH (Acetaminophen [Tylenol] 650 MG) PO PRN (00:49)
--- NOTE | 2018-08-05 01:34 | CON ---
DATE OF CONSULTATION: HISTORY OF PRESENT ILLNESS: Mr. Yasmani Ramos is a 73-year-old male who reports to the emergency department this evening because he tripped at the movie theater and striking his head on a concrete. The patient denies any loss of consciousness. When he came to the emergency department, a small arachnoid hemorrhage was found on CT. Neurosurgery was consulted. Laceration on the right forehead was repaired while in the emergency department. When I entered the patient's hospital room, he is sitting up, talking with his in good spirits. He has a bandage over the right eye where he has been stitched up. He is alert and oriented x3. He denies any neurologic changes. No sensory or motor changes within all 4 extremities well. Normal short and long-term memory. ALLERGIES: NO KNOWN DRUG ALLERGIES. REVIEW OF SYSTEMS: A 10-point review of systems has been completed and is negative than otherwise stated in the above HPI. CURRENT MEDICATIONS: 1. Hydralazine. 2. Hydrochlorothiazide. 3. Topiramate. 4. Aspirin. 5. Metoprolol. 6. Tamsulosin. 7. Namenda. 8. Benazepril. PAST MEDICAL HISTORY: Hypertension and BPH. PAST SURGICAL HISTORY: AAA repair, bilateral knee replacement, left hip replacement. SOCIAL HISTORY: The patient lives at home with his spouse. He works as a realtor. He states that he quit smoking more than 10 years ago. Denies drug or alcohol use. PHYSICAL EXAMINATION: VITAL SIGNS: Temperature 97.7, heart rate 56, respirations 18, O2 saturations 98% on room air, blood pressure 150/74. CONSTITUTIONAL: Well-appearing, well-nourished, alert and oriented x3, afebrile, normotensive does not appear to be in any visible distress. HEENT: It is noted that a repaired laceration on the right foot forehead just above the right eye. Pupils are equal, round, and reactive to light. Extraocular movements intact. Hearing is intact. Moist mucous membranes. RESPIRATIONS: Normal work of breathing on room air. Symmetrical chest rise. MOTOR: The patient is moving all 4 extremities well. He has normal 5/5 strength in bilateral deltoids, biceps, triceps, shoulder joiner strength. Normal 5/5 bilateral strength in hip flexion, knee flexion, knee extension, dorsiflexion, plantar flexion. There are no sensory changes bilaterally. NEUROLOGIC: The patient is alert and oriented x3. Mahendra Coma scale of 15. Speech is spontaneous and fluent. Normal fund of knowledge. Short and long-term memory intact. Cranial nerves 2 through 12 were tested and intact. No pronator drift. No sensory or motor deficits noted. IMAGING: CT of the brain shows evidence of a right posterior frontotemporal and parietal muscles, subarachnoid hemorrhage without significant mass effect or midline shift. There is stable left side actually. ASSESSMENT AND PLAN: Mr. Ramos is a 73-year-old male who tripped and fell, sustaining a subarachnoid hemorrhage. The patient will stay the night in the hospital and we will monitor his neuro status. We will stop his aspirin. We would like to obtain his blood pressure below 160 and we will get a new CT head in the morning. Job ID: [id number]
[2018-08-05] MEDS ORDERED: Dextrose 5% in Water 1,000 ML IV PRN (01:53)
[2018-08-05] MEDS ORDERED: Ondansetron ODT 4 MG TAB PO PRN (01:53)
[2018-08-05] MEDS ORDERED: Dextrose 50% Abboject 50 ML SYRINGE SLOW IVP PRN (01:53)
[2018-08-05] MEDS ORDERED: Ondansetron PF 4 MG/2 ML Vial IVP PRN (01:53)
[2018-08-05] MEDS ORDERED: Sodium Chloride 0.9% 1,000 ML IV SCH (02:15)
[2018-08-05 05:40] LABS: #Basophils 0.1 thou/uL (0.0-0.2); #Eosinphils 0.4 thou/uL (0.0-0.7); #Lymphocytes 2.1 thou/uL (1.20-3.40); #Monocytes 0.9 thou/uL (0.11-0.59); %Basophils 0.7 % (0.0-1.0); %Eosinophils 5.1 % (0.0-10.0); %Monocytes 12.3 % (0.0-10.0); %Neutrophils 53.9 % (42.0-75.0); Mean Corpuscular Hemoglobin 33.2 pg (27.0-31.0); Mean Platelet Volume 7.4 fL (7.4-10.4); Platelet Count 147 thou/uL (130-400); RBC Distribution Width 14.7 % (11.5-14.5); White Blood Cell (WBC) Count 7.5 thou/uL (4.8-10.8)
[2018-08-05 06:06] LABS: Anion Gap 12 mmol/L (10-20); BUN (Urea Nitrogen) 52 mg/dL (8.4-25.7); Calc. Creatinine Clearance 57 mL/min (70-130); Calcium 9.4 mg/dL (7.8-10.44); Carbon Dioxide 27 mmol/L (23-31); Chloride 105 mmol/L (98-107); Estimated GFR-MDRD 36; Glucose 98 mg/dL (83-110); Potassium 3.5 mmol/L (3.5-5.1); Sodium 140 mmol/L (136-145)
--- NOTE | 2018-08-05 07:05 | CT ---
CT HEAD NONCONTRAST: INDICATIONS: Intracranial hemorrhage. Subarachnoid hemorrhage. Followup. COMPARISON: Reference made to exam from 08/04/2018. FINDINGS: Redemonstration of subarachnoid hemorrhage, epicenter at the right sylvian fissure, with extension in to the right frontal parietal sulci. No new midline shift. The ventricular system remains prominent , likely due to ex vacuo dilatation from extensive white matter disease, which is redemonstrated and is most pronounced within the left MCA territory, with associated multifocal cortical encephalomalaci a, related to large volume remote left MCA distribution infarction. Multifocal remote lacunar infarc tions of the cerebellum are again demonstrated. There is debris at each external auditory canal. IMPRESSION: 1. Redemonstration of acute subarachnoid hemorrhage of the right cerebral sulci, epicenter, right sy lvian fissure. 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 Recommen d [facility] [place] as followup. 2. 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 POS: LARS
[2018-08-05] MEDS ORDERED: Spironolactone 25 MG TAB PO SCH (08:00)
[2018-08-05] MEDS ORDERED: Torsemide 20 MG TAB PO SCH (09:00)
[2018-08-05] MEDS ORDERED: Hydrochlorothiazide 25 MG TAB PO SCH (09:00)
[2018-08-05] MEDS ORDERED: Topiramate 25 MG TAB PO SCH (09:00)
[2018-08-05] MEDS ORDERED: Famotidine 20 MG TAB PO SCH (09:00)
[2018-08-05] MEDS ORDERED: Donepezil HCl 10 MG TAB PO SCH (09:00)
[2018-08-05 10:42] VITALS: TEMP 97
--- NOTE | 2018-08-05 12:52 | PRG ---
DATE OF SERVICE: 08/05/2018 I personally interviewed, examined the patient, and agreed with documentation of Sara Barnes PA-C, dated 08/04/2018. Briefly, Yasmani Ramos is a 73-year-old gentleman with a history of left MCA infarct in the past, who was at home with his yesterday. He has caught his foot on the carpet and fell. He struck his head and was brought to the emergency department. CT examination of the brain revealed some traumatic subarachnoid hemorrhage in the right sylvian fissure. He is on a baby aspirin at home, but no blood thinners. He has been observed overnight and a CT scan was done this morning. I am seeing him in the ICU today. The vital appear stable He has some speech slowing, but no change from baseline as far as his speech goes. He has some right hemiparesis in an upper motor neuron fashion affecting the face and arm more so than the leg, but he still has useful function on that side. This is also his baseline. CT examination of the brain this morning shows decrease in the amount of traumatic subarachnoid blood. I recommended Mr. Ramos to stop his aspirin until this weekend. He takes a baby aspirin daily, and I do not think it is too high risk to restart that on the weekend. He has had a stroke in the past, so he has an indication for antiplatelet therapy. I would like to see him in 2 weeks after discharge with a followup CT scan to make sure all blood products are gone and that he has not developed subdural hematoma. I think he is stable for discharge, and he looks safe for his activities of daily living currently. Job ID: [id number] [facility]
--- NOTE | 2018-08-05 15:28 | PRG ---
DATE OF SERVICE: 08/05/2018 SUBJECTIVE: Mr. Ramos was in a movie theater, tripped on a rug as he was exiting and tripped and hit his scalp, suffered a scalp laceration and subarachnoid hemorrhage. He was GCS 15. He was observed overnight and a CT scan repeated without change. Dr. Johnson and his PA have seen him and decision is made to send him home as he remained stable. OBJECTIVE: LUNGS: Clear to auscultation. CARDIAC: Rhythm without murmur or gallop. ABDOMEN: Soft, nontender. NEUROLOGIC: GCS of 15. He is tolerating his diet. VITAL SIGNS: Temperature 97 degrees, blood pressure 168/74. LABORATORY DATA: Hemoglobin 12. Basic metabolic profile normal with mild chronic kidney disease, 52 and 1.82 BUN and creatinine. ASSESSMENT AND PLAN: Subarachnoid hemorrhage secondary to fall. Observe. No indication for further treatment. Discharge home and follow up with Neurosurgery. Dr. Johnson has seen the patient and agrees with discharge, and Mr. Ramos is recommended to stop his aspirin until the weekend. Dr. Johnson will see him in 2 weeks. Job ID: [id number]
--- NOTE | 2018-08-06 00:39 | DIS ---
DATE OF ADMISSION: 08/04/2018 DATE OF DISCHARGE: 08/05/2018 ADMISSION DIAGNOSES: 1. Status post ground level fall. 2. Subarachnoid hemorrhage. 3. Forehead laceration, repaired. 4. History of hypertension. 5. History of aspirin use. 6. Acute on chronic kidney injury. CONSULTATIONS: Neurosurgery, Dr. Johnson. PROCEDURES: None. SUMMARY: The patient is a 73-year-old man, who was leaving a movie theater when he tripped and fell, hit his head. Denies any loss of consciousness and no reported history of altered mental status. The patient was brought to the emergency department, underwent evaluation and examination and was noted to have the above injuries. He will be admitted overnight for serial exams and repeat head CT in the morning. The repeat head CT was stable. The patient was evaluated by Dr. Johnson, who cleared him to be discharged home. He recommended that the patient hold his daily baby aspirin until this weekend and then he may resume. The patient needs to follow up with Dr. Johnson in 2 weeks. His clinic will call and arrange that followup. At time of discharge, his pain was controlled. He is tolerating a diet. He was ambulating. The patient may follow up with the Trauma Clinic in 5 to 7 days for suture removal or he may follow up with his primary care provider for suture removal. Job ID: [id number]
== END 2018-08-05 15:08 | disposition home or self-care (01) | DRG 86 ==
LOC: ERS 19:36 → SURG A 21:52 → IMCU/EMU 08-05 01:09
PROVIDERS: ADMIT Specialist; ATTEND Specialist
DX: S06.6X0A Traumatic subarachnoid hemorrhage without loss of consciousness, initial encounter (principal); N17.9 Acute kidney failure, unspecified; S01.81XA Laceration without foreign body of other part of head, initial encounter; I10 Essential (primary) hypertension; N40.0 Benign prostatic hyperplasia without lower urinary tract symptoms; Z96.653 Presence of artificial knee joint, bilateral; Z96.642 Presence of left artificial hip joint; Z79.82 Long term (current) use of aspirin; Z87.891 Personal history of nicotine dependence; W18.09XA Striking against other object with subsequent fall, initial encounter; Y92.26 Movie house or cinema as the place of occurrence of the external cause
CPT/HCPCS: 12011; 36415; 70450; 80048; 80053; 85025; 85610; 85730; 90471; 90715; J2001

== ENCOUNTER 2018-08-12 15:56 | Inpatient (IN) | payer MEDICARE ==
[2018-08-12 17:24] LABS: #Eosinphils 0.4 thou/uL (0.0-0.7); #Lymphocytes 2.2 thou/uL (1.20-3.40); #Monocytes 0.7 thou/uL (0.11-0.59); #Neutrophils 4.7 thou/uL (1.40-6.50); %Basophils 0.5 % (0.0-1.0); %Eosinophils 4.9 % (0.0-10.0); %Lymphocytes 27.2 % (21.0-51.0); %Monocytes 8.5 % (0.0-10.0); %Neutrophils 58.9 % (42.0-75.0); Hemoglobin 11.6 g/dL (14.0-18.0); Mean Corpuscular HGB CONC 32.7 g/dL (32.0-36.0); Mean Corpuscular Hemoglobin 33.2 pg (27.0-31.0); Platelet Count 165 thou/uL (130-400); RBC Distribution Width 14.4 % (11.5-14.5)
[2018-08-12 17:52] LABS: ALT (SGPT) 16 U/L (8-55); AST (SGOT) 23 U/L (5-34); Albumin 3.6 g/dL (3.4-4.8); Alkaline Phosphatase 72 U/L (40-150); Anion Gap 12 mmol/L (10-20); BUN (Urea Nitrogen) 35 mg/dL (8.4-25.7); Bilirubin, Total 0.5 mg/dL (0.2-1.2); Calc. Creatinine Clearance 0 mL/min (70-130); Carbon Dioxide 22 mmol/L (23-31); Chloride 106 mmol/L (98-107); Estimated GFR-MDRD 44; Globulin 3.9 g/dL (2.4-3.5); Glucose 78 mg/dL (83-110); Potassium 3.8 mmol/L (3.5-5.1); Protein, Total 7.5 g/dL (5.8-8.1); Sodium 136 mmol/L (136-145)
--- NOTE | 2018-08-12 17:58 | CT ---
Head CT without contrast 08/12/2018: COMPARISON: 08/05/2018 HISTORY: Fall, trauma, pain, altered mental status TECHNIQUE: Axial CT imaging at 5 mm intervals from vertex through skull base without contrast FINDINGS: There is diffuse cerebral volume loss. There is multifocal periventricular, deep, and subco rtical white matter hypodensity, evidence of small vessel disease. Since the prior examination there has been development of a subdural fluid collection in the left fro ntal region extending from the axial level of the vertex through the axial level of the third ventricle, most prominent in the left frontal region. This new left-sided subdural collection is prim arily hypodense with minimal isodensity anteriorly on image 16. This subdural collection on the left measures up to 1.7 cm in greatest transverse dimension. On the right within the region of the sylvian fissure there are subtle areas of sulcal hyperdensity c onsistent with subarachnoid hemorrhage, less evident than on the prior CT examinations. No significant midline shift or mass effect noted. The imaged paranasal sinuses/mastoid air cells are well aerated. No displaced calvarial fracture. The re is a metallic density immediately adjacent to the superior aspect of the globe on the left measuring approximately 3 mm. IMPRESSION: Minimal residual subarachnoid blood in the right sylvian fissure region, improved when co mpared to prior imaging. New subdural fluid collection on the left, of mixed attenuation, primarily hypodense suggesting interval development of a subdural hygroma or subacute hematoma. Close follow-up imaging is thus advised.
[2018-08-12 18:31] LABS: INR-International Normal Ratio 1.1; PTT 27.6 SEC (22.9-36.1); Prothrombin Time 13.9 SEC (12.0-14.7)
[2018-08-12] MEDS ORDERED: Ondansetron PF 4 MG/2 ML Vial IVP PRN (21:13)
[2018-08-12] MEDS ORDERED: Dextrose 5% in Water 1,000 ML IV PRN (21:13)
[2018-08-12] MEDS ORDERED: Sodium Chloride 0.9% 1,000 ML IV SCH (21:13)
[2018-08-12] MEDS ORDERED: Promethazine HCl 25 MG/ML VIAL IM PRN (21:13)
[2018-08-12] MEDS ORDERED: hydrALAZINE 20 MG/ML VIAL SLOW IVP PRN (21:13)
[2018-08-12] MEDS ORDERED: Morphine 2 MG/ML SYRINGE SLOW IVP PRN (21:13)
[2018-08-12] MEDS ORDERED: Dextrose 50% Abboject 50 ML SYRINGE SLOW IVP PRN (21:13)
[2018-08-12] MEDS ORDERED: Acetaminophen 500 MG TAB PO PRN (21:13)
[2018-08-12] MEDS ORDERED: Famotidine/PF 20 mg/2ml Vial SLOW IVP SCH (21:30)
[2018-08-12] MEDS ORDERED: Senokot S 8.6-50 MG TAB PO SCH (21:30)
[2018-08-12 23:44] VITALS: BMI 37.5
--- NOTE | 2018-08-13 01:53 | HP ---
TRAUMA SURGEON: Adrian Camejo MD CONSULTING PHYSICIAN: Dr. Buchanan. HISTORY OF PRESENT ILLNESS: The patient is a 73-year-old male who is known to the Trauma Service. He was recently admitted to the Trauma Service on August 04 after a mechanical fall and subsequently suffering a subarachnoid hemorrhage. He was admitted to the hospital and repeat CT head demonstrated no worsening. He had a stable mentation and subsequently he was discharged today. The patient reported to his primary care physician for suture removal for laceration over his right brow, previously repaired by Trauma. During this visit, the primary care physician noted that the patient had a decline in his mental capacity and subsequently recommended that he come to the emergency department. On evaluation, he did receive another CT scan, which demonstrated improvement of the previously known subarachnoid hemorrhage and a new subdural hematoma. We were consulted by the emergency department to admit the patient. During my evaluation, he reported that he did feel like he was having a little difficulty concentrating, but had no pain and no other complaints. Dr. Buchanan was consulted. His physician processing assistant, Margarito Hui recommended that the patient be admitted to the hospital with a repeat head CT in the morning time to assure that this subdural hematoma does not continue to grow in size. REVIEW OF SYSTEMS: All additional review of systems negative except as indicated above. PAST MEDICAL HISTORY: Hypertension, BPH, and CKD. SURGICAL HISTORY: AAA repair, bilateral knee replacements, left hip replacement. SOCIAL HISTORY: The patient lives at home with his spouse. He quit smoking 10 years ago. Denies drug or alcohol use. MEDICATIONS: 1. Hydralazine. 2. Hydrochlorothiazide. 3. Topiramate. 4. Metoprolol. 5. Flomax. 6. Namenda. 7. Benazepril. ALLERGIES: NO KNOWN DRUG ALLERGIES. PHYSICAL EXAMINATION: VITAL SIGNS: Temperature 98.8, pulse 53, respirations 16, oxygen saturation 98% on room air, blood pressure 151/72. PRIMARY SURVEY: Airway intact. Adequate breath sounds bilaterally. 2+ distal pulses palpable in the bilateral radials, femorals, and DPs. GCS is 14-15, -1 for confusion sometimes which waxes and wanes, gross motor and sensation intact. Well-healing 3 cm laceration to the right lateral forehead. No bruising or external bleeding noted. SECONDARY SURVEY: HEAD: Normocephalic, atraumatic. No gross palpable skull deformities or tenderness. EYES: Pupils 3 to 2, equal, round, reactive to light bilaterally. ENT: No hemotympanum. No epistaxis. No septal hematoma. Midface stable to manipulation. No blood in the oropharynx. Dentition is intact. No anterior neck injury/crepitus/tenderness. C-SPINE: No step-offs or deformities, nontender. C-collar not in place. CHEST: Nontender. No crepitus. No abrasions or ecchymosis noted. Equal chest movement. ABDOMEN: Soft, nontender, nondistended. PELVIS: Stable to palpation, nontender. No abrasions or ecchymosis. RECTAL: Deferred. GENITOURINARY: Deferred. EXTREMITIES: No gross deformities, chronic lower extremity swelling. No abrasions or ecchymosis noted. 2+ pulses in the bilateral radials, femorals, and DPs. BACK/SPINE: No step-offs or deformities or tenderness to palpation of the thoracic or lumbar spine. No abrasions or ecchymosis noted. NEUROLOGIC: 5/5 strength in the bilateral belly roller, plantar flexion, and dorsiflexion. Gross normal sensation x4 extremities. LABORATORY FINDINGS: White count 8.0, hemoglobin 11.6, hematocrit 35.6, platelets 165. INR 1.1. Sodium 136, potassium 3.8, chloride 106, carbon dioxide 22, BUN 35, creatinine 1.56. DIAGNOSTIC FINDINGS: CT scan of the brain completed today demonstrates minimal residual subarachnoid blood in the right sylvian fissure region, improved when compared to prior image. New subdural fluid collection on the left, of mixed attenuation, primary hypodensity suggests interval development of subdural hemorrhage or subarachnoid hematoma, close followup imaging is thus advised. ASSESSMENT: 1. Status post mechanical fall on August 04 with changing GCS today. 2. New subdural hematoma. 3. Subarachnoid hemorrhage, improving today. PLAN: The patient will be admitted to the [facility] with q.2 hours neuro checks. Neurosurgery has been consulted, who recommend a CT scan in the morning, which has been ordered. We will also complete a UA to rule out other sources of confusion or delirium. Speech language pathology has been consulted to evaluate the patient for cognitive evaluation tomorrow. We will likely need to place the patient in an acute rehab facility since he is a readmission. This patient was discussed with Dr. Camejo before this dictation. Job ID: [id number]
[2018-08-13 05:29] LABS: #Eosinphils 0.3 thou/uL (0.0-0.7); #Lymphocytes 1.8 thou/uL (1.20-3.40); #Monocytes 0.5 thou/uL (0.11-0.59); #Neutrophils 3.4 thou/uL (1.40-6.50); %Basophils 0.7 % (0.0-1.0); %Eosinophils 4.2 % (0.0-10.0); %Lymphocytes 30.6 % (21.0-51.0); %Monocytes 8.4 % (0.0-10.0); %Neutrophils 56.1 % (42.0-75.0); Hemoglobin 10.8 g/dL (14.0-18.0); Mean Corpuscular HGB CONC 33.5 g/dL (32.0-36.0); Mean Corpuscular Hemoglobin 33.8 pg (27.0-31.0); Mean Platelet Volume 6.9 fL (7.4-10.4); Platelet Count 151 thou/uL (130-400); RBC Distribution Width 14.4 % (11.5-14.5)
[2018-08-13 05:55] LABS: Anion Gap 10 mmol/L (10-20); BUN (Urea Nitrogen) 31 mg/dL (8.4-25.7); Calc. Creatinine Clearance 79 mL/min (70-130); Calcium 8.7 mg/dL (7.8-10.44); Carbon Dioxide 23 mmol/L (23-31); Chloride 111 mmol/L (98-107); Estimated GFR-MDRD 52; Glucose 91 mg/dL (83-110); Phosphorus 3.4 mg/dL (2.3-4.7); Sodium 140 mmol/L (136-145)
[2018-08-13 06:27] LABS: Bilirubin Negative (Negative); Blood, Urine Negative (Negative); Clarity CLEAR (Clear); Glucose, Urine (Dipstick) Negative (Negative); Leukocyte Negative (Negative); Nitrite Negative (Negative); Protein, Urine (Dipstick) Negative (Neg-Trace); Specific Gravity, Urine 1.018 (1.002-1.036); Urobilinogen 0.2 mg/dL (0.2-1.0); pH, Urine 6.5 (5.0-9.0)
[2018-08-13] MEDS ORDERED: Metoprolol Tartrate 50 MG TAB PO SCH (09:00)
--- NOTE | 2018-08-13 09:17 | CT ---
CT OF HEAD NONCONTRAST: COMPARISON: Previous day. INDICATION: Subdural hematoma, fall. FINDINGS: There is a grossly stable low-density extraaxial collection overlying the left convexity, remaining a t approximately 11 mm in thickness indicative of a chronic subdural hematoma/subdural hygroma. Trace subarachnoid hemorrhage remains within the right cerebral hemispheric sulci. Redemonstration of mul tifocal white matter hypoattenuation bilaterally. At the level of septum pellucidum there is a stabl e, minimal 3 mm degree of rightward subfalcine herniation. Redemonstration of lacunar infarctions of the cerebellum. Exam otherwise similar in appearance. IMPRESSION: Stable exam with low-density extraaxial collection overlying the left convexity, trace rightward subf alcine herniation, and minimal residual subarachnoid blood of right cerebral hemispheric sulci. Recommend continued imaging followup. POS: LARS
--- NOTE | 2018-08-13 09:42 | PRG ---
DATE OF SERVICE: 08/13/2018 Mr. Ramos is a 73-year-old male admitted approximately 1 week ago with traumatic subarachnoid hemorrhage, status post fall. He was subsequently discharged home. He presented yesterday with altered mental status, which included some confusion and dysarthria. He had a repeat CT examination performed, which revealed near complete resolution of all the traumatic subarachnoid hemorrhage present on the prior exam with development of what is likely a subdural hygroma over the left cerebral convexity. He has had a repeat CT examination performed today, which is stable in size. It exerts minimal mass effect and at this point in time, I do not believe it warrants surgical evacuation. I met with him and his this morning where he is alert and oriented and his speech is clear. He has not mobilized yet with Physical Therapy, but can do so at any time. From my perspective, he can eat at anytime. He may be a reasonable candidate to consider for inpatient rehab given his recent history of fall. I believe many of these symptoms he is experiencing are likely a postconcussive symptoms, which as I have explained to him and his can persist for many weeks. My plan will be to further evaluate him in the outpatient setting in 1 to 2 week time frame. At that time, we will repeat imaging. Should he have any further decline neurologically, we could repeat a CT scan, but otherwise no additional imaging for now. Job ID: [id number] [facility]
[2018-08-13] MEDS: Citalopram 20 MG TAB PO SCH (09:45)
[2018-08-13] MEDS: Topiramate 25 MG TAB PO SCH ×2 (09:45→20:33)
[2018-08-13] MEDS: Tamsulosin HCl 0.4 MG CAP PO SCH (09:46)
[2018-08-13] MEDS: Donepezil HCl 10 MG TAB PO SCH (09:46)
[2018-08-13] MEDS: Torsemide 20 MG TAB PO SCH (09:47)
[2018-08-13] MEDS: Polyethylene Glycol 3350 17 GM Packet PO SCH (09:48)
[2018-08-13] MEDS: Senokot S 8.6-50 MG TAB PO SCH ×2 (09:48→20:39)
--- NOTE | 2018-08-13 10:12 | CON ---
DATE OF CONSULTATION: Mr. Gruber is a 73-year-old man, who was actually admitted a week ago after a fall at a movie theater, resulting in right scattered traumatic subarachnoid hemorrhage with repeat scan that showed stable hemorrhage. He was discharged home with outpatient followup planned in the neurosurgical clinic; however, he got to see his primary care physician sooner secondary to some concerns from family for slurred speech and subtle confusion with a little bit of speech latency. CT scan performed in the department yesterday showed a left-sided almost hygromatous appearing subdural fluid collection causing slight compression of the underlying parenchyma along the left frontal, temporal, and parietal convexity. There is a very subtle [address] scan this morning actually shows maybe scant improvement in the degree of midline shift. From my perspective, at the bedside, he is awake, alert, oriented x4. He does think that it is January initially, but then corrects himself without direction stating that it is in fact July and he does tell me that the correct date is the . His speech is very slightly slurred. There is really no latency. I asked the if this is an improvement from the last few days, which she states that he actually is a little better today. He takes aspirin daily, but has been off since the fall, to continue. From Neurosurgery's perspective, this represents definitively nonsurgical intervention. He will need a repeat scan in a week or two to make sure this is continuing to improve and not worsening, though I would be hard pressed to see if there is any concern for progression. I explained this to the family and the patient at the bedside. Both expressed understanding and are agreeable to the plan. We will communicate with the trauma team that the patient can be discharged at any time from our perspective, though inpatient rehab may not be a bad idea given his latency and concern for possible falls. We will follow up in 2 weeks. Job ID: [id number]
--- NOTE | 2018-08-13 19:21 | PRG ---
DATE OF SERVICE: 08/13/2018 SUBJECTIVE: The patient was seen this morning ambulating to the bathroom and was re-evaluated again in the afternoon lying in bed. Reported feeling tired and wanting to rest, but he was easily arousable, answered all questions appropriately. Denied headaches, changes in vision, photophobia, or phonophobia. Stated pain was well controlled. Denied nausea, vomiting, or diarrhea. Has not required any pain management. He has had a bowel movement today and ambulates with assistance. He usually uses a cane at home. OBJECTIVE: VITAL SIGNS: Temperature 98.8, pulse 51, respirations 13, oxygen 98% on room air, blood pressure 121/48. GENERAL: Elderly male, lying in bed with no signs of acute distress. PULMONARY: Equal chest rise and fall. Clear breath sounds bilaterally. No signs of acute pulmonary distress. CARDIAC: Bradycardic, but with regular rhythm. No murmurs, gallops, or rubs. GI: Abdomen is soft, nontender, nondistended. EXTREMITIES: 2+ pulses in all extremities. Gross motor and sensation intact in all extremities. 5/5 strength in all extremities. No significant swelling noted. NEUROLOGIC: GCS is 15. A and O x4. No focal neurological deficits. Pupils equal, round, and reactive to light bilaterally. LABORATORY FINDINGS: White count 6.0, hemoglobin 10.8, hematocrit 32.3, and platelets 151. Sodium 140, potassium 4.0, chloride 100, carbon dioxide 23, BUN 31, creatinine 1.35, glucose 163, phos 3.2, magnesium 2.0. DIAGNOSTIC FINDINGS: CT of the brain completed this morning demonstrates stable exam with low-density extra-axial collection overlying the left convexity, trace rightward subfalcine herniation and minimal residual subarachnoid blood in the right cerebral hemispheric sulci. ASSESSMENT: 1. Status post mechanical fall over a week ago, previously known subarachnoid hemorrhage, newly developed subdural hematoma with mentation changes. 2. History of chronic kidney disease, hypertension, BPH. PLAN: Neurosurgery evaluated the patient this morning and reviewed the repeat head CT. They report that the patient does not need any further imaging unless he has a change in his mentation. He can follow up with them in 1 to 2 weeks. They did recommend also that the patient be discharged to rehab this time. All of his home medications were restarted except his antihypertensives. The patient continues to be bradycardic and normotensive, and so we will hold those medications until clinically indicated. Discontinue the IV fluids. Start the patient on a regular diet. We will transfer him to regular nursing floor. Physical and Occupational Therapy to work with the patient and will start working on discharge plan to acute rehab. The patient was seen and discussed with Dr. Eastman this morning during rounds. Job ID: [id number]
[2018-08-13] MEDS ORDERED: Famotidine/PF 20 mg/2ml Vial SLOW IVP SCH (21:00)
[2018-08-14 06:57] LABS: Anion Gap 10 mmol/L (10-20); BUN (Urea Nitrogen) 23 mg/dL (8.4-25.7); Calc. Creatinine Clearance 83 mL/min (70-130); Calcium 8.7 mg/dL (7.8-10.44); Carbon Dioxide 25 mmol/L (23-31); Chloride 109 mmol/L (98-107); Estimated GFR-MDRD 54; Glucose 88 mg/dL (83-110); Magnesium 1.8 mg/dL (1.6-2.6); Potassium 3.6 mmol/L (3.5-5.1); Sodium 140 mmol/L (136-145)
[2018-08-14] MEDS ORDERED: Potassium Phosphate 15 MMOL in Sodium Chloride 0.9% 250 ML 250 ML IVPB SCH (07:45)
[2018-08-14] MEDS ORDERED: Magnesium 2 GM/50 ML 2 GM in Premix Bag 1 BAG IVPB SCH (07:45)
[2018-08-14] MEDS: Torsemide 20 MG TAB PO SCH (08:29)
[2018-08-14] MEDS: Tamsulosin HCl 0.4 MG CAP PO SCH (08:29)
[2018-08-14] MEDS: Donepezil HCl 10 MG TAB PO SCH (08:29)
[2018-08-14] MEDS: Citalopram 20 MG TAB PO SCH (08:30)
[2018-08-14] MEDS: hydrALAZINE 25 MG TAB PO SCH ×2 (08:30→21:53)
[2018-08-14] MEDS: Hydrochlorothiazide 25 MG TAB PO SCH (08:31)
[2018-08-14] MEDS: Topiramate 25 MG TAB PO SCH ×2 (08:31→21:53)
[2018-08-14] MEDS: Senokot S 8.6-50 MG TAB PO SCH ×2 (08:33→21:52)
[2018-08-14] MEDS: Polyethylene Glycol 3350 17 GM Packet PO SCH (08:33)
--- NOTE | 2018-08-14 14:30 | PRG ---
DATE OF SERVICE: 08/14/2018 SUBJECTIVE: The patient was seen this morning lying in bed. Reported pain was well controlled. Tolerating a regular diet. He slept well overnight. Denied headache, photophobia and phonophobia. He has worked with Physical therapy this morning and ambulates, was requesting to be discharged home. However, since this is a second hospital admission for traumatic brain injury, we did recommend that he be discharged to a rehab facility and he was amenable to that. Denies nausea, vomiting, and diarrhea at this time. OBJECTIVE: VITAL SIGNS: Temperature 98.3, pulse 72, respirations 20, oxygen saturation 97% on room air, and blood pressure 165/76. GENERAL: Well-appearing elderly male, lying in bed with no signs of acute distress. PULMONARY: Equal chest rise and fall. Clear breath sounds bilaterally. No signs of acute pulmonary distress. CARDIAC: Regular rate and rhythm. No murmurs, gallops or rubs. GI: Abdomen is soft, nontender, and nondistended. EXTREMITIES: 2+ pulses in all extremities. Gross motor and sensation intact in all extremities. Chronic swelling noted. NEUROLOGIC: GCS is 15. A and O x4. No focal neurological deficits. Pupils equal, round, and reactive to light. LABORATORY FINDINGS: White count 6.0, hemoglobin 10.3, hematocrit 32.3, and platelets 151. Sodium 140, potassium 3.6, carbon dioxide 105, BUN 23, creatinine 1.29, glucose 88, phos 3.0, and magnesium 1.8. DIAGNOSTIC FINDINGS: There are no new diagnostic findings to report. ASSESSMENT: 1. Status post mechanical fall over a week ago, previously known subarachnoid hemorrhage, with newly discovered subdural hematoma with mental status changes, now resolving. 2. History of chronic kidney disease, hypertension, and benign prostatic hypertrophy. PLAN: The patient's mentation and clarity continues to improve. I have restarted all of his home medications with hold parameters for the metoprolol. Physical Therapy is recommending the patient to go to acute rehab and he is amendable to that. Dr. Buchanan has signed off on the patient and requests to follow up in 1 to 2 weeks. The patient was seen and examined by Dr. Eastman and myself this morning during rounds. Job ID: [id number]
--- NOTE | 2018-08-14 16:44 | PQF ---
[facility] TERRY LUZ PA [id number] SURG A- [id number] CLINICAL DOCUMENTATION IMPROVEMENT CLARIFICATION FORM: ICD-10 Updated PLEASE DO AN ADDENDUM TO THE PROGRESS NOTE WITH ANY DOCUMENTATION UPDATES OR ADDITIONS AND CARRY THROUGH TO DC SUMMARY. THANK YOU. DATE: 08/14/18 ATTN: VERÓNICA Fried Please exercise your independent, professional judgment in responding to the clarification form. Clinical indicators are provided on the bottom of this form for your review Please check appropriate box(s): [ x] Encephalopathy: Type: [ x] Acute [ ] Subacute [ ] Chronic Etiology: [ ] SAH [ ] herniation of brain [ ] Unspecified [ ] in the setting of underlying dementia [ ] Other (please specify) [ ] Transient Alteration of Awareness [x ] Other diagnosis ____SDH [ ] Unable to determine In addition, please specify: Present on Admission (POA): [x ] Yes [ ] No [ ] Unable to determine For continuity of documentation, please document condition throughout progress notes and discharge summary. Thank You. CLINICAL INDICATORS - SIGNS / SYMPTOMS / LABS H&P: confusion wax and wanes 08/13 Dr. Buchanan: Exerts minimal mass effect 08/13 CTH: minimal 3mm degree of rightward subfalcine herniation RISK FACTORS H&P: new subdural hematoma; SAH improving History of SAH due to mechanical fall per H&P TREATMENTS: Neuro checks Q2H 08/12 orders; Q4h 08/13 orders Neurosurgery consult 08/12 orders IV fluids--> NS at 70 08/12-08/13 per MAR Thank you, Araseli (This form is maintained as a part of the permanent medical record) 2015 [employer]. All Rights Reserved Araseli Carson, RN, BSN, CCDS [email or web address]
--- NOTE | 2018-08-14 16:53 | PQF ---
[facility] TERRY LUZ PA [id number] SURG A- 3337 [id number] CLINICAL DOCUMENTATION IMPROVEMENT CLARIFICATION FORM: ICD-10 Updated PLEASE DO AN ADDENDUM TO THE PROGRESS NOTE WITH ANY DOCUMENTATION UPDATES OR ADDITIONS AND CARRY THROUGH TO DC SUMMARY. THANK YOU. DATE: 08/14/18 ATTN: VERÓNICA Fried Please exercise your independent, professional judgment in responding to the clarification form. Clinical indicators are provided on the bottom of this form for your review Please check appropriate box(s): [ ] Cerebral edema / Vasogenic edema [ x ] Compression of brain Due to: [x ] subdural hematoma [ ] Other diagnosis [ ] Unable to determine In addition, please specify: Present on Admission (POA): [ x ] Yes [ ] No [ ] Unable to determine For continuity of documentation, please document condition throughout progress notes and discharge summary. Thank You. CLINICAL INDICATORS - SIGNS / SYMPTOMS / LABS H&P: confusion wax and wanes 08/12 HR 52 per VS 08/13 Trauma PA: the patient continues to be bradycardic 08/13 Dr. Buchanan: exerts minimal mass effect 08/13 CTH: minimal 3mm degree of rightward subfalchine herniation 08/13 Trauma PA: the patient's mentation and clarity continues to improve RISK FACTORS H&P new SDH; SAH improving from prior mechanical fall TREATMENTS: repeat CTH 08/13 per orders Neuro Checks q2h 08/12; q4h 08/13 orders Neurosurgeon consult 08/12 orders NS at 70 08/12-08/13 per MAR Thank you, Araseli (This form is maintained as a part of the permanent medical record) 2014 [employer]. All Rights Reserved Araseli Carson, RN, BSN, CCDS [email or web address] [phone] [facility] HOSPITALSylvester
[2018-08-15] MEDS: Citalopram 20 MG TAB PO SCH (08:23)
[2018-08-15] MEDS: Tamsulosin HCl 0.4 MG CAP PO SCH (08:23)
[2018-08-15] MEDS: Hydrochlorothiazide 25 MG TAB PO SCH (08:24)
[2018-08-15] MEDS: Donepezil HCl 10 MG TAB PO SCH (08:24)
[2018-08-15] MEDS: hydrALAZINE 25 MG TAB PO SCH ×2 (08:24→21:15)
[2018-08-15] MEDS: Polyethylene Glycol 3350 17 GM Packet PO SCH (08:24)
[2018-08-15] MEDS: Senokot S 8.6-50 MG TAB PO SCH ×2 (08:24→21:15)
[2018-08-15] MEDS: Topiramate 25 MG TAB PO SCH ×2 (09:14→21:15)
[2018-08-15] MEDS: Torsemide 20 MG TAB PO SCH (09:15)
--- NOTE | 2018-08-15 11:22 | CT ---
Head CT without contrast 08/15/2018: COMPARISON: 08/13/2018) HISTORY: Reevaluate intracranial hemorrhage TECHNIQUE: Axial CT imaging at 5 mm intervals from vertex through skull base without contrast FINDINGS: Imaged paranasal sinuses/mastoid air cells well-aerated. No displaced calvarial fracture. S table hypodense subdural fluid collection present on the left, unchanged when compared to studies dating back to 08/12/2018 examination, new when compared to the 08/05/2018 examination. Vague small volume residual subarachnoid hemorrhage noted in the right frontal region. Periventricula r, deep, and subcortical white matter hypodensity, evidence of small vessel disease. No significant midline shift noted. IMPRESSION: Stable head CT as detailed above.
--- NOTE | 2018-08-15 12:42 | PRG ---
DATE OF SERVICE: 08/15/2018 SUBJECTIVE: The patient remains on the surgical floor, status post readmission after his followup with primary care provider, where it was noted he had a change in mental status. He underwent re-evaluation in emergency department, where he was noted to have a new subdural hematoma. The patient denied any new falls, so there may be a delayed presentation of the original injury. The patient overnight had no issues. This morning, there was concern that the patient had another change in mental status, where he underwent repeat head CT, which was stable. At the time of our evaluation during morning rounds, the patient was alert and lucid and he is quite adamant about being able to go home, but his mental status was GCS of 15. The patient has been working with physical and occupational therapy. He is tolerating a diet. States that his pain is controlled. PHYSICAL EXAMINATION: VITAL SIGNS: Temperature is 97.6, heart rate 50, blood pressure 132/70, respirations 14, oxygen saturation is 96% on room air. GENERAL: The patient is sitting in a chair at bedside. Family is there, who states that he is able to ambulate with his walker. Again, the patient's GCS is 15. He is alert and oriented and appropriate. HEENT: Unremarkable. PULMONARY: Shows no signs of distress. He is moving air freely. EXTREMITIES: Neurovascularly intact and moves all 4 extremities. Bilateral lower extremities show some wrinkling consistent with decreased swelling. LABORATORY DATA: There are no labs to review this morning. Radiograph; CT of the brain without contrast shows a stable head CT. ASSESSMENT AND PLAN: 1. Status post mechanical fall greater than a week ago with a known subarachnoid hemorrhage, who was readmitted after a change in mental status showing a subdural hematoma. 2. History of chronic kidney disease, hypertension, and BPH. Plan will be to continue physical and occupational therapy, speech therapy for cognition, and await placement to rehab. The patient was evaluated with Dr. Eastman this morning during rounds. Job ID: [id number]
[2018-08-16] MEDS: Tamsulosin HCl 0.4 MG CAP PO SCH (08:23)
[2018-08-16] MEDS: Donepezil HCl 10 MG TAB PO SCH (08:24)
[2018-08-16] MEDS: Citalopram 20 MG TAB PO SCH (08:24)
[2018-08-16] MEDS: Senokot S 8.6-50 MG TAB PO SCH ×2 (08:24→20:30)
[2018-08-16] MEDS: Torsemide 20 MG TAB PO SCH (08:25)
[2018-08-16] MEDS: Topiramate 25 MG TAB PO SCH ×2 (08:25→20:29)
[2018-08-16] MEDS: Polyethylene Glycol 3350 17 GM Packet PO SCH (08:27)
[2018-08-16] MEDS: hydrALAZINE 25 MG TAB PO SCH ×2 (17:02→20:29)
[2018-08-16] MEDS: Hydrochlorothiazide 25 MG TAB PO SCH (17:03)
--- NOTE | 2018-08-16 18:54 | PRG ---
DATE OF SERVICE: 08/16/2018 SUBJECTIVE: The patient remains on the surgical floor. He has had no issues overnight. He is anxious again today to be discharged from the hospital. I had a lengthy discussion with him regarding the benefits of going to short-stay of inpatient rehab that he would still explore whether he can be discharged and return to rehab on Saturday. It was explained to him that this will be affected by insurance, but again more so him being safely discharged home with his being able to safely care for him also. The patient has been out of bed and ambulatory and being more active today. His cognition also appears to be improving just from my examination compared yesterday and his also feels that he has improved since yesterday. OBJECTIVE: VITAL SIGNS: Temperature is 98.3, heart rate 50, blood pressure 100/62, respirations 18, and oxygen saturation 97% on room air. GENERAL: The patient is resting comfortably. He is alert and oriented. Mahendra Coma Scale is 15. HEENT: Unremarkable. LUNGS: Clear to auscultation with good inspiratory and expiratory effort. HEART: Regular rate and rhythm. EXTREMITIES: Neurovascularly intact x4. There are no labs or radiographs to review this morning. ASSESSMENT AND PLAN: 1. Status post ground level fall greater than a week ago with a known subarachnoid hemorrhage, who was readmitted after change of mental status showing a subdural hematoma. 2. History of chronic kidney disease, hypertension, and BPH. Plan will be to continue physical and occupational therapy, speech therapy. Await placement to rehab. We will readdress and possibly going home tomorrow and hopefully are able to convince him again to wait for inpatient rehab placement. Job ID: [id number]
[2018-08-17] MEDS: Hydrochlorothiazide 25 MG TAB PO SCH (10:08)
[2018-08-17] MEDS: hydrALAZINE 25 MG TAB PO SCH ×2 (10:08→20:31)
[2018-08-17] MEDS: Tamsulosin HCl 0.4 MG CAP PO SCH (10:10)
[2018-08-17] MEDS: Citalopram 20 MG TAB PO SCH (10:11)
[2018-08-17] MEDS: Donepezil HCl 10 MG TAB PO SCH (10:11)
[2018-08-17] MEDS: Torsemide 20 MG TAB PO SCH (10:11)
[2018-08-17] MEDS: Polyethylene Glycol 3350 17 GM Packet PO SCH (10:12)
[2018-08-17] MEDS: Senokot S 8.6-50 MG TAB PO SCH ×2 (10:12→20:31)
[2018-08-17] MEDS: Topiramate 25 MG TAB PO SCH ×2 (10:12→20:31)
--- NOTE | 2018-08-17 14:39 | PRG ---
DATE OF SERVICE: 08/17/2018 SUBJECTIVE: The patient remains on the surgical floor. He is doing well again this morning. He had no issues overnight. He is tolerating a diet. His pain is controlled. He has continued to work with therapy. He was up and he was in shower this morning and he was eagerly awaiting placement for. If not, possible tomorrow, he would like to discuss going home options. OBJECTIVE: VITAL SIGNS: Temperature is 98.2, heart rate 63, blood pressure 107/63, respirations 18, and oxygen saturation 95% on room air. GENERAL: The patient is resting comfortably in bed. He has been up and ambulating this morning. He is alert and oriented x3. Fortine Coma Scale is 15. HEENT: Unremarkable. LUNGS: Clear to auscultation with good inspiratory and expiratory effort. HEART: Regular rate and rhythm. ABDOMEN: Soft, flat, nontender with active bowel sounds. EXTREMITIES: Neurovascularly intact x4. LABORATORY DATA: There are no labs or radiographs to review this morning. ASSESSMENT AND PLAN: 1. Status post fall with delayed presentation of a subdural hematoma. 2. History of chronic kidney disease. 3. Hypertension. 4. Benign prostatic hypertrophy. Plan will be to continue supportive care. Await insurance decision and placement decision. Job ID: [id number]
[2018-08-18] MEDS: Citalopram 20 MG TAB PO SCH (08:51)
[2018-08-18] MEDS: Donepezil HCl 10 MG TAB PO SCH (08:51)
[2018-08-18] MEDS: hydrALAZINE 25 MG TAB PO SCH (08:51)
[2018-08-18] MEDS: Hydrochlorothiazide 25 MG TAB PO SCH (08:51)
[2018-08-18] MEDS: Tamsulosin HCl 0.4 MG CAP PO SCH (08:52)
[2018-08-18] MEDS: Topiramate 25 MG TAB PO SCH (08:52)
[2018-08-18] MEDS: Torsemide 20 MG TAB PO SCH (08:52)
[2018-08-18] MEDS: Polyethylene Glycol 3350 17 GM Packet PO SCH (08:53)
[2018-08-18] MEDS: Senokot S 8.6-50 MG TAB PO SCH (08:53)
[2018-08-18 15:27] VITALS: BP 102/60; TEMP 97.6
== END 2018-08-18 15:30 | DRG 85 ==
LOC: ERS 15:56 → SDC/OP 19:41 → IMCU/EMU 20:36 → SURG A 08-13 19:23
PROVIDERS: ADMIT Surgery; ATTEND Surgery
DX: S06.5X0A Traumatic subdural hemorrhage without loss of consciousness, initial encounter (principal); G93.5 Compression of brain; G93.49 Other encephalopathy; I12.9 Hypertensive chronic kidney disease with stage 1 through stage 4 chronic kidney disease, or unspecified chronic kidney disease; N40.0 Benign prostatic hyperplasia without lower urinary tract symptoms; N18.9 Chronic kidney disease, unspecified; W19.XXXA Unspecified fall, initial encounter; F07.81 Postconcussional syndrome; Y92.9 Unspecified place or not applicable; Z96.653 Presence of artificial knee joint, bilateral; Z87.891 Personal history of nicotine dependence; Z79.82 Long term (current) use of aspirin; Z79.899 Other long term (current) drug therapy; Z96.642 Presence of left artificial hip joint; S06.5X0D Traumatic subdural hemorrhage without loss of consciousness, subsequent encounter
CPT/HCPCS: 36415; 36416; 70450; 80048; 80053; 81003; 83735; 84100; 85025; 85610; 85730; J3475; J7050; S0028

== ENCOUNTER 2018-09-02 10:36 | Outpatient (CLI) | payer MEDICARE ==
--- NOTE | 2018-09-02 11:12 | CT ---
Exam: Head CT without contrast HISTORY: Traumatic subdural hematoma. Follow-up. COMPARISON: 08/15/2018 FINDINGS: Previously noted hypodense left extra-axial collection has a slightly increased density and is iso to slightly hyperintense suggesting reaccumulation of acute/subacute hemorrhage. The greatest diameter is near the left vertex, measuring 1.7 cm. There is associated atrophy and malacia involving the left frontal lobe, parietal lobe near the vertex. There is stable hypoattenuation in the white matter due to chronic small vessel ischemic change. No midline shift. Basilar cisterns are patent With regard to the right cerebrum, cortical dodge-white matter differentiation is served No hydrocephalus line calvarium is intact. Adequate aeration of the sinuses and mastoid air cells. IMPRESSION: 1. Redemonstration of extra-axial hematoma along the left convex city. Interval change in attenuation suggesting acute/subacute blood. Results of study discussed with Dr. Buchanan 09/02/2018 at 11:01 AM Code CR
== END 2018-09-02 10:37 | disposition home or self-care (01) ==
LOC: TBSIIMAG 10:36
PROVIDERS: ATTEND Neurological Surgery
DX: S06.5X9A Traumatic subdural hemorrhage with loss of consciousness of unspecified duration, initial encounter (principal)
CPT/HCPCS: 70450

== ENCOUNTER 2018-09-09 12:17 | Outpatient (CLI) | payer MEDICARE ==
--- NOTE | 2018-09-09 14:20 | CT ---
CT HEAD WITHOUT CONTRAST: 09/09/18 Multiple axial tomograms obtained through the head without IV enhancement. INDICATION: Follow-up subdural hemorrhage. COMPARISON: 09/02/18. The left subdural hematoma is again noted. There are now acute components to this subdural which are new when compared to the prior study. This subdural appears to have increased slightly in size. The w idth is measured at 1.7 cm today. The width at the same location on the prior study recorded at 1.3 c m. Chronic ischemic white matter changes are again noted. No significant midline shift. IMPRESSION: There are now acute components seen to the left subdural hematoma. This subdural collection has incre ased in size slightly when compared to the prior study. Dr. Buchanan is being paged for notification at the time of this dictation. POS: OFF
== END 2018-09-09 12:18 | disposition home or self-care (01) ==
LOC: CT 12:17
PROVIDERS: ATTEND Neurological Surgery
DX: S06.5X9D Traumatic subdural hemorrhage with loss of consciousness of unspecified duration, subsequent encounter (principal)
CPT/HCPCS: 70450

== ENCOUNTER 2018-09-17 13:44 | Outpatient (CLI) | payer MEDICARE ==
--- NOTE | 2018-09-17 14:23 | CT ---
CT BRAIN NONCONTRAST: DATE: 09/17/2018 HISTORY: Follow-up subdural hematoma in 73-year-old male COMPARISON: 09/09/2018 FINDINGS: The left lateral upper supratentorial subdural hematoma has not significantly changed in size, measur ing approximately 1.7 cm at the same measuring location as the previous. However, the entire subdural fluid collection has slightly increased in attenuation compared to the prior study, consiste nt with greater distribution of the more acute components of the hemorrhage upon the more chronic components. It is noted that the inferior components of this subdural hematoma, at the left parietal region, and especially at the left occipital region, are still hyperdense, representing acute hemorrhagic components. The left subdural hematoma causes local mass effect, with medial displacement of the upper portion of the left cerebral hemisphere, but does not cause midline shift of the septum pellucidum. No obstructive hydrocephalus. Advanced chronic ischemic white matter changes of the cerebrum. Regions of encephalomalacia and gliosis at the left upper cerebral frontoparietal regions consistent with old insults such as prior infarctions. Calvarium is intact. IMPRESSION: 1. Moderate sized left upper lateral mixed age subdural dural hematoma has not significantly changed in size since 09/09/2018, but the more acute components of hemorrhage have distributed more extensively than previously. 2. Multifocal small regions of encephalomalacia and gliosis in the left upper cerebrum (prior insults ) 3. Moderate to severe chronic ischemic white matter changes. 4. No subfalcine herniation.
== END 2018-09-17 13:45 | disposition home or self-care (01) ==
LOC: TBSIIMAG 13:44
PROVIDERS: ATTEND Neurological Surgery
DX: I62.00 Nontraumatic subdural hemorrhage, unspecified (principal); G93.89 Other specified disorders of brain
CPT/HCPCS: 70450

== ENCOUNTER 2018-10-02 14:45 | Outpatient (CLI) | payer MEDICARE ==
--- NOTE | 2018-10-02 15:02 | CT ---
CT BRAIN: HISTORY: Patient with chronic subdural hematoma. Noncontrast enhanced CT images of the brain is obtained on 10/02/2018. Comparison made to previous exa m from 09/17/2018. FINDINGS: CT images demonstrate again left parietal subdural hematoma. Some of the more acute components of hem orrhage appear to have decreased. Some minimal areas of acute hemorrhage remain. The overall size of subdural collection is slightly larger, now having maximum thickness of 1.9 cm. No significant mid line shift is seen. The patient has extensive cortical atrophy. Old areas of stroke and atrophy seen in the left frontal lobe. IMPRESSION: Slightly increasing subdural hematoma. Transcribed Date/Time: 10/02/2018 3:11 PM
== END 2018-10-02 14:46 | disposition home or self-care (01) ==
LOC: TBSIIMAG 14:45
PROVIDERS: ATTEND Neurological Surgery
DX: S06.5X9D Traumatic subdural hemorrhage with loss of consciousness of unspecified duration, subsequent encounter (principal)
CPT/HCPCS: 70450

== ENCOUNTER 2018-10-28 12:49 | Outpatient (CLI) | payer MEDICARE ==
--- NOTE | 2018-10-28 13:36 | CT ---
Exam: Head CT without contrast HISTORY: Subdural hemorrhage. Follow-up exam. COMPARISON: 10/02/2018 FINDINGS: Hemorrhage: Mixed attenuation extra-axial hematoma along the left frontal and parietal convexly, near the vertex. Maximum dimension is 1.9 cm (previously 1.9 cm). Stable mass effect upon the left cerebrum. Brain parenchyma: Cortical dodge-white matter differentiation is preserved. Basilar cisterns are paten t. No midline shift.There is stable malacic change in the left cerebrum. Ventricular system: Ventricles and sulci are patent and symmetric. Calvarium: Intact. Sinuses and mastoid air cells: Adequate aeration. IMPRESSION: Essentially stable left subdural hematoma. Mixed attenuation is once again demonstrated. The areas of hyperdensity may represent acute blood versus thickening of the extra-axial hematoma.
== END 2018-10-28 12:50 | disposition home or self-care (01) ==
LOC: TBSIIMAG 12:49
PROVIDERS: ATTEND Neurological Surgery
DX: S06.5X9D Traumatic subdural hemorrhage with loss of consciousness of unspecified duration, subsequent encounter (principal)
CPT/HCPCS: 70450

== ENCOUNTER 2018-12-11 10:12 | Outpatient (CLI) | payer MEDICARE ==
--- NOTE | 2018-12-11 10:43 | CT ---
Exam: Head CT without contrast HISTORY: Follow-up subdural hematoma COMPARISON: 10/28/2018 FINDINGS: Hemorrhage: No parenchymal hemorrhage. Interval decrease in size of a extra-axial collection along th e left frontal-parietal convexity near the vertex. This collection is predominantly hypodense and measures 1.2 cm (presumed measuring 2 cm). Minimal mass effect upon the adjacent brain parenchyma. Pe ripheral hyperdensity likely representing chronic process of the dura. Brain parenchyma: Malacic and gliotic changes involving the left cerebrum, similar to the previous ex amination. Cortical dodge-white matter differentiation in the right cerebrum is maintained.Chronic small vessel ischemic changes white matter are noted. Ventricular system: Ventricles and sulci are patent and symmetric. Calvarium: Intact. Sinuses and mastoid air cells: Adequate aeration. IMPRESSION: 1. Interval decrease in size of a left subdural hematoma. 2. Stable malacic and gliotic changes in the left cerebrum. No due to parenchymal hemorrhage. 3. Stable white matter hypodensities likely due to chronic small vessel ischemic changes of the white matter.
== END 2018-12-11 10:13 | disposition home or self-care (01) ==
LOC: TBSIIMAG 10:12
PROVIDERS: ATTEND Neurological Surgery
DX: I62.03 Nontraumatic chronic subdural hemorrhage (principal); G93.89 Other specified disorders of brain
CPT/HCPCS: 70450

== ENCOUNTER 2019-09-30 14:44 | Outpatient (CLI) | payer MEDICARE ==
[~2019-09-30 14:44] MED LIST: Magnevist 469MG/ML 20 ML VIAL ONE
--- NOTE | 2019-09-30 16:22 | MRI ---
Exam: Brain MRI with and without contrast HISTORY: Retinal artery occlusion. Stroke in. Additional T2 and FLAIR white matter hyperintensities a re felt to be due to chronic small vessel ischemic change. No parenchymal mass, mass effect or midline shift. Age-appropriate atrophy.: 10/31/2005 Correlation: Noncontrast head CT 12/11/2018 FINDINGS: Brain MRI: Hemorrhage: No parenchymal hemorrhage or extra-axial hematoma. Resolution of previously noted left-si ded subdural hematoma. Calvarium: Appropriate T1 marrow signal intensity Midline brain parenchyma: Unremarkable Cerebrum:Encephalomalacia and gliosis involving the right Ventricles: No evidence of hydrocephalus. Sinuses and mastoid air cells: Adequate aeration Diffusion: Central arterial flow is maintained. Absent restricted diffusion. Postcontrast images: No pathologic enhancement of the brain parenchyma. Line orbit MRI: Limited evaluation of the left globe due to metallic susceptibly artifact. Bilateral ocular lenses appear to be grossly appropriate position. Symmetric signal intensity of the ocular rectus muscles. Limited evaluation the retrobulbar fat due to artifact. Grossly no abnormality. Visua lized optic chiasm, prechiasmatic optic nerves and intraorbital optic nerves have appropriate signal intensity Midline pituitary stalk. No obvious masses in the sella or suprasellar region. IMPRESSION: 1. Encephalomalacia and gliosis involving the left cerebrum due to remote insult 2. Chronic small vessel ischemic changes white matter 3. Within the limitations caused by metallic artifact in the left lobe, there is no obvious orbit MRI abnormality
== END 2019-09-30 14:45 | disposition home or self-care (01) ==
LOC: BICMRI 14:44
PROVIDERS: ATTEND Specialist
DX: H34.9 Unspecified retinal vascular occlusion (principal); I67.82 Cerebral ischemia; G93.89 Other specified disorders of brain
CPT/HCPCS: 70553; A9579

== ENCOUNTER 2019-10-06 13:55 | Outpatient (CLI) | payer MEDICARE ==
--- NOTE | 2019-10-06 14:43 | ULT ---
EXAM: Bilateral lower extremity venous Doppler US HISTORY: bilateral lower extremity edema and pain FINDINGS: Grayscale, color-flow, Doppler evaluation, spectral analysis of the bilateral lower extremities venou s structures is performed with 2-D imaging. The bilateral common femoral, superficial femoral, popliteal, posterior tibial, proximal greater saphenous and profunda femoral veins are imaged. There is normal luminal compressibility, flow, and augmentation in the visualized deep venous structu res of the bilateral lower extremities. IMPRESSION: No evidence of a deep vein thrombosis in either lower extremity.
--- NOTE | 2019-10-06 15:14 | ULT ---
EXAM: Thyroid ultrasound HISTORY: Right thyroid nodule COMPARISON: None FINDINGS: Thyroid isthmus measures 0.4 cm Right thyroid lobe measures 2.5 x 2.1 x 5.3 cm Left thyroid lobe measures 1.5 x 1.9 x 4.1 cm Thyroid nodules: Large solid nodule in the mid to lower pole of the right thyroid lobe measures 2.1 x 1.8 x 3.2 cm Mixed solid cystic nodule in the mid pole left lobe measures 1.5 x 1.2 x 1.6 cm IMPRESSION: Dominant solid nodule in the right thyroid lobe. TI-RADS calculator TR 4 moderately suspicious. Given the size of the nodule, fine-needle aspiration is recommended Transcribed Date/Time: 10/06/2019 3:29 PM
== END 2019-10-06 13:56 | disposition home or self-care (01) ==
LOC: BICULT 13:55
PROVIDERS: ATTEND Specialist
DX: R60.0 Localized edema (principal); E04.1 Nontoxic single thyroid nodule; R79.89 Other specified abnormal findings of blood chemistry
CPT/HCPCS: 76536; 93970

== ENCOUNTER 2019-10-29 16:51 | Emergency (ER) | payer MEDICARE ==
--- NOTE | 2019-10-29 18:09 | CT ---
CT Brain WO Con: 10/29/2019 5:44 PM CLINICAL HISTORY: Difficulty in utilizing legs. IMAGING TECHNIQUE: Multiple CT images were obtained of the brain without IV contrast. COMPARISON: CT the brain dated December 11, 2018 FINDINGS: BRAIN: Evidence of acute infarct: None. 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 Severe chronic small vessel white matter ischemic changes stable. Generalized cerebral and cerebellar atrophy is stable. Evidence of intracranial hemorrhage: Previously seen subdural hemorrhage overlying the left frontal convexity has resolved. Evidence of midline shift: Third ventricle and septum pellucidum are midline. Ventricles: Normal. No hydrocephalus. SKULL: Retained metallic foreign body along the left eye is stable. VISUALIZED PARANASAL SINUSES: Clear. MASTOID AIR CELLS: Clear. EXTRACRANIAL SOFT TISSUES: Normal. IMPRESSION: No acute intracranial abnormality. Stable chronic ischemic change. Stable retained metallic foreign body along the anterior aspect of the left eye.
[2019-10-29 18:49] LABS: #Eosinphils 0.3 thou/uL (0.0-0.7); #Lymphocytes 1.9 thou/uL (1.20-3.40); #Monocytes 0.6 thou/uL (0.11-0.59); #Neutrophils 3.3 thou/uL (1.40-6.50); %Basophils 0.2 % (0.0-1.0); %Eosinophils 5.1 % (0.0-10.0); %Lymphocytes 30.5 % (21.0-51.0); %Neutrophils 54.2 % (42.0-75.0); Hemoglobin 13.5 g/dL (14.0-18.0); Mean Corpuscular Hemoglobin 34.3 pg (27.0-31.0); Mean Platelet Volume 7.7 fL (7.4-10.4); Platelet Count 143 thou/uL (130-400); RBC Distribution Width 13.3 % (11.5-14.5); Red Blood Cell (RBC) Count 3.93 mill/uL (4.70-6.10); White Blood Cell (WBC) Count 6.1 thou/uL (4.8-10.8)
[2019-10-29 19:11] LABS: ALT (SGPT) 22 U/L (8-55); AST (SGOT) 23 U/L (5-34); Albumin 3.6 g/dL (3.4-4.8); Alkaline Phosphatase 64 U/L (40-110); Anion Gap 11 mmol/L (10-20); BUN (Urea Nitrogen) 27 mg/dL (8.4-25.7); Bilirubin, Total 0.3 mg/dL (0.2-1.2); Calc. Creatinine Clearance 0 mL/min (70-130); Calcium 8.9 mg/dL (7.8-10.44); Carbon Dioxide 30 mmol/L (23-31); Chloride 106 mmol/L (98-107); Estimated GFR-MDRD 40; Globulin 2.9 g/dL (2.4-3.5); Glucose 97 mg/dL (83-110); Protein, Total 6.5 g/dL (5.8-8.1); Sodium 143 mmol/L (136-145)
--- NOTE | 2019-10-29 19:12 | RAD ---
RADIOGRAPH CHEST 1 VIEW: 10/29/19 HISTORY: 74-year-old male with bilateral lower extremity motor deficit. FINDINGS: There is cardiomegaly. The thoracic aorta is tortuous and ectatic. There is no evidence of air space density, pulmonary edema, or pneumothorax. The lateral costophrenic angles are sharp. IMPRESSION: 1) No acute pulmonary findings. 2) Cardiomegaly without pulmonary edema. 3) Ectasia of thoracic aorta. jn [] POS: JIN
[2019-10-29] MEDS ORDERED: Aspirin Chewable 81 MG TAB ONE ×2 (20:01)
== END 2019-10-29 20:26 | disposition home or self-care (01) ==
LOC: ERS 16:51
DX: R53.1 Weakness (principal); H54.7 Unspecified visual loss; I10 Essential (primary) hypertension; Z87.891 Personal history of nicotine dependence
CPT/HCPCS: 36415; 70450; 71045; 80053; 83605; 84484; 85025; 93005; 94760

== ENCOUNTER 2020-01-26 15:23 | Outpatient (CLI) | payer MEDICARE ==
--- NOTE | 2020-01-26 16:01 | ULT ---
US Renal Bilateral STANDARD HISTORY: Cystitis with hematuria COMPARISON: None. FINDINGS: The right kidney measures 10.7 cm in length and the left kidney measures 11.5 cm in length. There is a 2.4 x 1.9 x 2.7 cm cyst in the left medial mid kidney. No hydronephrosis seen on either side. The urinary bladder is unremarkable. IMPRESSION: Left renal cyst.
== END 2020-01-26 15:24 | disposition home or self-care (01) ==
LOC: BICULT 15:23
PROVIDERS: ATTEND Specialist
DX: N30.91 Cystitis, unspecified with hematuria (principal); N28.1 Cyst of kidney, acquired
CPT/HCPCS: 76770

== ENCOUNTER 2020-02-25 15:38 | Outpatient (CLI) | payer MEDICARE ==
--- NOTE | 2020-02-25 16:59 | MRI ---
EXAM: MRI left hip PROVIDED CLINICAL HISTORY: Pain COMPARISON: None FINDINGS: Postoperative changes of left hip arthroplasty are demonstrated, producing extensive metallic suscept ibility artifact and limiting evaluation. There is at least high-grade partial-thickness if not full-thickness disruption of the distal gluteus medius medius tendon. Associated edema within the gluteus medius musculature. The gluteus minimus tendon is obscured by susceptibility artifact. The left hip flexor tendons are predominantly obscured by artifact. The common hamstring tendon origin appears intact. The hip adductor tendons appear intact. There is conspicuous trochanteric bursal fluid. Regional marrow and muscular signal unaffected by negar ceptibility artifact appear otherwise normal. The visualized courses of the regional major neurovascular structures appear unremarkable. IMPRESSION: 1. At least high-grade partial-thickness if not full-thickness disruption of the distal left gluteus medius medius tendon. 2. Conspicuous trochanteric bursal fluid.
== END 2020-02-25 15:39 | disposition home or self-care (01) ==
LOC: SCSMRI 15:38
PROVIDERS: ATTEND Orthopaedic Surgery
DX: Z47.1 Aftercare following joint replacement surgery (principal); Z96.642 Presence of left artificial hip joint

== ENCOUNTER 2020-06-24 14:46 | Outpatient (CLI) | payer MEDICARE ==
[2020-06-24 16:48] LABS: Hemoglobin 12.8 g/dL (13.5-17.5); Mean Corpuscular HGB CONC 32.3 g/dL (32.0-36.0); Mean Corpuscular Volume 102.1 fl (81.2-95.1); Platelet Count 175 10x3/uL (150-450); RBC Distribution Width 14.8 % (11.5-14.5); Red Blood Cell (RBC) Count 3.88 10x6/uL (4.32-5.72); White Blood Cell (WBC) Count 6.9 10x3/uL (3.5-10.5)
[2020-06-24 17:17] LABS: Anion Gap 13 mmol/L (10-20); BUN (Urea Nitrogen) 30 mg/dL (8.4-25.7); Calc. Creatinine Clearance 0 mL/min (70-130); Calcium 8.9 mg/dL (7.8-10.44); Carbon Dioxide 31 mmol/L (23-31); Chloride 101 mmol/L (98-107); Glucose 98 mg/dL (83-110); Potassium 4.7 mmol/L (3.5-5.1); Sodium 140 mmol/L (136-145)
[2020-06-25 02:22] LABS: SARS-CoV-2 PCR by NAA Not Detected (NotDetected)
== END 2020-06-24 14:47 | disposition home or self-care (01) ==
LOC: LABBT 14:46
PROVIDERS: ATTEND Neurological Surgery
DX: Z01.818 Encounter for other preprocedural examination (principal); Z20.822 Contact with and (suspected) exposure to COVID-19
CPT/HCPCS: 80048; 85027; 93005; U0003; U0005; 87635; 93010

== ENCOUNTER 2020-06-29 06:15 | Day surgery (SDC) | payer MEDICARE ==
[2020-06-27 14:24] VITALS: BMI 42.3
[2020-06-29] MEDS ORDERED: EPINEPHrine 1 MG/ML AMP ONE (06:56)
[2020-06-29] MEDS ORDERED: Bupivacaine PF 0.5% 30 ML VIAL ONE (06:56)
[2020-06-29] MEDS ORDERED: Thrombin 5000 UNITS/5 ML VIAL ONE (06:56)
[2020-06-29] MEDS ORDERED: Fentanyl 100 MCG/2 ML VIAL ONE ×2 (07:24→08:11)
[2020-06-29] MEDS ORDERED: Ondansetron PF 4 MG/2 ML Vial ONE (09:52)
[2020-06-29] MEDS ORDERED: Glycopyrrolate 0.2 MG/ML 5 ML SYRINGE ONE (09:52)
[2020-06-29] MEDS ORDERED: Dexamethasone 20 MG/5 ML VIAL ONE (09:52)
[2020-06-29] MEDS ORDERED: Lidocaine 1% PF 5 ML VIAL ONE (09:52)
[2020-06-29] MEDS ORDERED: Rocuronium Bromide 10 MG/ML (10ML VIAL) ONE (09:52)
[2020-06-29] MEDS ORDERED: PROPOFOL 200 MG/20 ML VIAL ONE (09:52)
[2020-06-29] MEDS ORDERED: ePHEDrine 50 MG/ML VIAL ONE (09:52)
[2020-06-29] MEDS ORDERED: Tamsulosin HCl 0.4 MG CAP ONE (10:19)
== END 2020-06-29 15:35 | disposition home or self-care (01) ==
LOC: SDC 06:15
PROVIDERS: ATTEND Neurological Surgery
PROC: 01NB0ZZ Release Lumbar Nerve, Open Approach (ICD-10-PCS; principal; 2020-06-29)
PROC: 0T9B30Z Drainage of Bladder with Drainage Device, Percutaneous Approach (ICD-10-PCS; 2020-06-29)
DX: M48.062 Spinal stenosis, lumbar region with neurogenic claudication (principal); I10 Essential (primary) hypertension; E07.9 Disorder of thyroid, unspecified; Z79.82 Long term (current) use of aspirin; Z79.899 Other long term (current) drug therapy; Z96.653 Presence of artificial knee joint, bilateral; Z96.649 Presence of unspecified artificial hip joint; R33.8 Other retention of urine
CPT/HCPCS: 76000; 81003; 81015; 87086; J0171; J0690; J1100; J2405; J2704; J3010; J3490; S0020

== ENCOUNTER 2020-06-29 19:28 | Emergency (ER) | payer MEDICARE | END 2020-06-29 21:18 | disposition home or self-care (01) | LOC: ERS 19:28 | DX: N32.89 Other specified disorders of bladder (principal); Z86.73 Personal history of transient ischemic attack (TIA), and cerebral infarction without residual deficits; Z87.891 Personal history of nicotine dependence | CPT/HCPCS: 81003; 81015; 87086 ==

== ENCOUNTER 2020-07-20 14:55 | Outpatient (CLI) | payer MEDICARE | END 2020-07-20 14:56 | disposition home or self-care (01) | LOC: TBSIIMAG 14:55 | PROVIDERS: ATTEND Neurological Surgery | DX: M47.26 Other spondylosis with radiculopathy, lumbar region (principal); M54.5 Low back pain; I71.4 Abdominal aortic aneurysm, without rupture | CPT/HCPCS: 72148; 72158 ==

== ENCOUNTER 2020-11-30 14:38 | Outpatient (CLI) | payer MEDICARE | END 2020-11-30 14:39 | disposition home or self-care (01) | LOC: BICRAD 14:38 | PROVIDERS: ATTEND Neurological Surgery | DX: M47.26 Other spondylosis with radiculopathy, lumbar region (principal); M43.16 Spondylolisthesis, lumbar region | CPT/HCPCS: 72110 ==

== ENCOUNTER 2021-05-30 11:21 | Outpatient (CLI) | payer OTHER | END 2021-05-30 11:22 | disposition home or self-care (01) | LOC: MRI 11:21 | PROVIDERS: ATTEND Nurse Practitioner Family | DX: M48.062 Spinal stenosis, lumbar region with neurogenic claudication (principal); M47.816 Spondylosis without myelopathy or radiculopathy, lumbar region | CPT/HCPCS: 72148 ==

== ENCOUNTER 2021-06-08 13:25 | Outpatient (CLI) | payer MEDICARE | END 2021-06-08 13:26 | disposition home or self-care (01) | LOC: BICRAD 13:25 | PROVIDERS: ATTEND Nurse Practitioner Family | DX: M43.16 Spondylolisthesis, lumbar region (principal); M51.36 Other intervertebral disc degeneration, lumbar region | CPT/HCPCS: 72110 ==

== ENCOUNTER 2021-09-01 14:06 | Outpatient (CLI) | payer MEDICARE | END 2021-09-01 14:07 | disposition home or self-care (01) | LOC: BICCT 14:06 | PROVIDERS: ATTEND Specialist | DX: M54.50 Low back pain, unspecified (principal); M48.061 Spinal stenosis, lumbar region without neurogenic claudication; M48.07 Spinal stenosis, lumbosacral region | CPT/HCPCS: 72131 ==

== ENCOUNTER 2021-09-14 12:11 | Emergency (ER) | payer MEDICARE | END 2021-09-14 15:30 | disposition home or self-care (01) | LOC: ERS 12:11 | DX: M25.561 Pain in right knee (principal); M79.661 Pain in right lower leg; R60.0 Localized edema; I10 Essential (primary) hypertension; Z87.891 Personal history of nicotine dependence; Z79.899 Other long term (current) drug therapy ==

== ENCOUNTER 2021-10-31 13:13 | Outpatient (CLI) | payer MEDICARE | END 2021-10-31 13:14 | disposition home or self-care (01) | LOC: TBSIIMAG 13:13 | PROVIDERS: ATTEND Surgery | DX: M47.12 Other spondylosis with myelopathy, cervical region (principal); M50.01 Cervical disc disorder with myelopathy, high cervical region; R53.1 Weakness; M25.78 Osteophyte, vertebrae; M48.02 Spinal stenosis, cervical region; M46.02 Spinal enthesopathy, cervical region; G31.9 Degenerative disease of nervous system, unspecified; R90.82 White matter disease, unspecified; Z96.642 Presence of left artificial hip joint; Z96.652 Presence of left artificial knee joint | CPT/HCPCS: 70551; 72141; 72146 ==

== ENCOUNTER 2021-11-15 | Inpatient (IN) | payer MEDICARE, OTHER ==
[2021-11-15] MEDS ORDERED: Cyclobenzaprine 10 MG TAB ONE (00:31)
[2021-11-15 01:07] LABS: #Eosinphils 0.1 thou/uL (0.0-0.7); #Lymphocytes 1.4 thou/uL (1.20-3.40); #Monocytes 0.4 thou/uL (0.11-0.59); #Neutrophils 4.2 thou/uL (1.40-6.50); %Basophils 0.6 % (0.0-1.0); %Eosinophils 1.8 % (0.0-10.0); %Lymphocytes 22.9 % (21.0-51.0); %Monocytes 6.9 % (0.0-10.0); %Neutrophils 67.8 % (42.0-75.0); Hemoglobin 12.4 g/dL (14.0-18.0); Mean Corpuscular HGB CONC 34.6 g/dL (32.0-36.0); Mean Corpuscular Hemoglobin 35.7 pg (27.0-31.0); Mean Platelet Volume 7.4 fL (7.4-10.4); Platelet Count 149 thou/uL (130-400); RBC Distribution Width 13.3 % (11.5-14.5); Red Blood Cell (RBC) Count 3.46 mill/uL (4.70-6.10); White Blood Cell (WBC) Count 6.2 thou/uL (4.8-10.8)
[2021-11-15 01:28] LABS: ALT (SGPT) 13 U/L (8-55); AST (SGOT) 19 U/L (5-34); Albumin 3.4 g/dL (3.4-4.8); Alkaline Phosphatase 65 U/L (40-110); Anion Gap 13 mmol/L (10-20); BUN (Urea Nitrogen) 31 mg/dL (8.4-25.7); Bilirubin, Total 0.4 mg/dL (0.2-1.2); Calc. Creatinine Clearance 0 mL/min (70-130); Calcium 9.2 mg/dL (7.8-10.44); Carbon Dioxide 29 mmol/L (23-31); Chloride 101 mmol/L (98-107); Estimated GFR 35; Globulin 3.3 g/dL (2.4-3.5); Glucose 148 mg/dL (83-110); Potassium 3.7 mmol/L (3.5-5.1); Protein, Total 6.7 g/dL (5.8-8.1); Sodium 139 mmol/L (136-145)
[2021-11-15 08:10] LABS: Hemoglobin A1c 4.9 % (4.0-6.0)
[2021-11-15 08:11] LABS: Anion Gap 13 mmol/L (10-20); BUN (Urea Nitrogen) 30 mg/dL (8.4-25.7); Calc. Creatinine Clearance 0 mL/min (70-130); Calcium 9.3 mg/dL (7.8-10.44); Carbon Dioxide 31 mmol/L (23-31); Cardiac Risk 3.6 (Less than 4.5); Chloride 101 mmol/L (98-107); Cholesterol 140 mg/dl (< 200 Desired); Estimated GFR 39; Glucose 95 mg/dL (83-110); HDL Cholesterol 39 mg/dL (>60 Neg Risk); LDL Cholesterol, Calculated 88 mg/dL; Potassium 3.4 mmol/L (3.5-5.1); Sodium 142 mmol/L (136-145); Triglycerides 65 mg/dL (Less than 150)
[2021-11-15] MEDS ORDERED: Acetaminophen/Codeine 30-300mg Tablet PO PRN (08:41)
[2021-11-15] MEDS ORDERED: Acetaminophen/Codeine 30-300mg Tablet ONE (08:53)
[2021-11-15] MEDS ORDERED: hydrALAZINE 25 MG TAB ONE (09:35)
[2021-11-15] MEDS ORDERED: Enoxaparin Sodium 40 MG/0.4 ML SYRINGE ONE (09:44)
[2021-11-15] MEDS: DULoxetine 30 MG CAP PO SCH (09:54)
[2021-11-15] MEDS: Enoxaparin Sodium 40 MG/0.4 ML SYRINGE SC SCH (09:54)
[2021-11-15] MEDS: Metolazone 5 MG TAB PO SCH (09:54)
[2021-11-15] MEDS: hydrALAZINE 25 MG TAB PO SCH ×2 (09:54→20:02)
[2021-11-15] MEDS: Polyethylene Glycol 3350 17 GM Packet PO SCH (09:55)
[2021-11-15] MEDS: Tamsulosin HCl 0.4 MG CAP PO SCH (09:55)
[2021-11-15 10:16] LABS: SARS-CoV-2 NAA Rapid Test Not Detected (NotDetected)
[2021-11-15 15:29] VITALS: BMI 40.9
[2021-11-15 19:09] LABS: Bacteria/HPF None Seen HPF (None Seen); Bilirubin Negative (Negative); Blood, Urine Negative (Negative); Clarity Clear (Clear); Glucose, Urine (Dipstick) Normal (Negative); Ketone, Urine Negative (Negative); Leukocyte Negative Leu/uL (Negative); Nitrite Negative (Negative); Protein, Urine (Dipstick) 20 mg/dL (Neg-Trace); RBC/HPF 0-3 HPF (0-3); Specific Gravity, Urine 1.014 (1.002-1.036); Squamous Epithelial 0-3 HPF (0-3); Urobilinogen Normal mg/dL (Less than 2); WBC/HPF 0-3 HPF (0-3)
[2021-11-15 19:13] LABS: Urine Culture Reflex No No
[2021-11-15] MEDS: Donepezil HCl 10 MG TAB PO SCH (20:02)
[2021-11-15] MEDS: Gabapentin 100 MG CAP PO SCH (22:37)
[2021-11-16 06:39] LABS: Anion Gap 12 mmol/L (10-20); BUN (Urea Nitrogen) 26 mg/dL (8.4-25.7); Calc. Creatinine Clearance 78 mL/min (70-130); Calcium 8.8 mg/dL (7.8-10.44); Carbon Dioxide 30 mmol/L (23-31); Chloride 101 mmol/L (98-107); Estimated GFR 50; Glucose 143 mg/dL (83-110); Potassium 3.3 mmol/L (3.5-5.1); Sodium 140 mmol/L (136-145)
[2021-11-16] MEDS: Enoxaparin Sodium 40 MG/0.4 ML SYRINGE SC SCH (08:48)
[2021-11-16] MEDS: Polyethylene Glycol 3350 17 GM Packet PO SCH (08:48)
[2021-11-16] MEDS: Gabapentin 100 MG CAP PO SCH ×3 (08:49→22:02)
[2021-11-16] MEDS: Tamsulosin HCl 0.4 MG CAP PO SCH (08:49)
[2021-11-16] MEDS: Metolazone 5 MG TAB PO SCH (08:49)
[2021-11-16] MEDS: hydrALAZINE 25 MG TAB PO SCH ×2 (08:50→22:00)
[2021-11-16] MEDS: DULoxetine 30 MG CAP PO SCH (08:50)
[2021-11-16] MEDS ORDERED: hydrALAZINE 25 MG TAB PO SCH (09:00)
[2021-11-16] MEDS ORDERED: Tamsulosin HCl 0.4 MG CAP PO SCH (09:00)
[2021-11-16] MEDS ORDERED: Polyethylene Glycol 3350 17 GM Packet PO SCH (09:00)
[2021-11-16] MEDS ORDERED: Sodium Chloride 0.9% 1,000 ML IV SCH ×2 (18:15→18:30)
[2021-11-16] MEDS ORDERED: tiZANidine HCl 4 MG TAB PO SCH (21:00)
[2021-11-16] MEDS: Donepezil HCl 10 MG TAB PO SCH (22:02)
[2021-11-16] MEDS: tiZANidine HCl 4 MG TAB PO SCH (22:03)
[2021-11-17 05:28] LABS: #Eosinphils 0.1 thou/uL (0.0-0.7); #Lymphocytes 1.8 thou/uL (1.20-3.40); #Monocytes 0.7 thou/uL (0.11-0.59); #Neutrophils 4.1 thou/uL (1.40-6.50); %Basophils 0.3 % (0.0-1.0); %Eosinophils 2.1 % (0.0-10.0); %Lymphocytes 26.6 % (21.0-51.0); %Monocytes 10.2 % (0.0-10.0); %Neutrophils 60.8 % (42.0-75.0); Hemoglobin 12.3 g/dL (14.0-18.0); Mean Corpuscular HGB CONC 33.1 g/dL (32.0-36.0); Mean Corpuscular Hemoglobin 34.2 pg (27.0-31.0); Mean Platelet Volume 7.5 fL (7.4-10.4); Platelet Count 139 thou/uL (130-400); RBC Distribution Width 13.4 % (11.5-14.5); Red Blood Cell (RBC) Count 3.58 mill/uL (4.70-6.10); White Blood Cell (WBC) Count 6.8 thou/uL (4.8-10.8)
[2021-11-17 05:43] LABS: Anion Gap 10 mmol/L (10-20); BUN (Urea Nitrogen) 28 mg/dL (8.4-25.7); Calc. Creatinine Clearance 83 mL/min (70-130); Calcium 8.8 mg/dL (7.8-10.44); Carbon Dioxide 30 mmol/L (23-31); Chloride 103 mmol/L (98-107); Estimated GFR 54; Glucose 97 mg/dL (83-110); Potassium 3.6 mmol/L (3.5-5.1); Sodium 139 mmol/L (136-145)
[2021-11-17] MEDS: tiZANidine HCl 4 MG TAB PO SCH ×4 (09:21→21:30)
[2021-11-17] MEDS: Tamsulosin HCl 0.4 MG CAP PO SCH (09:21)
[2021-11-17] MEDS: Metolazone 5 MG TAB PO SCH (09:22)
[2021-11-17] MEDS: DULoxetine 30 MG CAP PO SCH (09:22)
[2021-11-17] MEDS: hydrALAZINE 25 MG TAB PO SCH ×2 (09:22→21:30)
[2021-11-17] MEDS: Polyethylene Glycol 3350 17 GM Packet PO SCH (09:23)
[2021-11-17] MEDS: Enoxaparin Sodium 40 MG/0.4 ML SYRINGE SC SCH (09:23)
[2021-11-17] MEDS: Gabapentin 100 MG CAP PO SCH ×3 (09:23→21:30)
[2021-11-17] MEDS: Donepezil HCl 10 MG TAB PO SCH (21:30)
[2021-11-18] MEDS: Enoxaparin Sodium 40 MG/0.4 ML SYRINGE SC SCH (08:39)
[2021-11-18] MEDS: Metolazone 5 MG TAB PO SCH (08:39)
[2021-11-18] MEDS: Tamsulosin HCl 0.4 MG CAP PO SCH (08:40)
[2021-11-18] MEDS: tiZANidine HCl 4 MG TAB PO SCH ×4 (08:40→21:20)
[2021-11-18] MEDS: hydrALAZINE 25 MG TAB PO SCH ×2 (08:40→21:21)
[2021-11-18] MEDS: Gabapentin 100 MG CAP PO SCH ×3 (08:41→21:21)
[2021-11-18] MEDS: DULoxetine 30 MG CAP PO SCH (08:41)
[2021-11-18] MEDS: Polyethylene Glycol 3350 17 GM Packet PO SCH (08:43)
[2021-11-18] MEDS: Donepezil HCl 10 MG TAB PO SCH (21:22)
[2021-11-19] MEDS: Tamsulosin HCl 0.4 MG CAP PO SCH (09:15)
[2021-11-19] MEDS: DULoxetine 30 MG CAP PO SCH (09:15)
[2021-11-19] MEDS: Gabapentin 100 MG CAP PO SCH ×3 (09:15→20:34)
[2021-11-19] MEDS: hydrALAZINE 25 MG TAB PO SCH ×2 (09:15→20:34)
[2021-11-19] MEDS: tiZANidine HCl 4 MG TAB PO SCH ×4 (09:16→20:35)
[2021-11-19] MEDS: Enoxaparin Sodium 40 MG/0.4 ML SYRINGE SC SCH (09:17)
[2021-11-19] MEDS: Metolazone 5 MG TAB PO SCH (09:17)
[2021-11-19] MEDS: Polyethylene Glycol 3350 17 GM Packet PO SCH (09:18)
[2021-11-19] MEDS ORDERED: Gabapentin 300 MG CAP PO PRN (10:29)
[2021-11-19] MEDS: Donepezil HCl 10 MG TAB PO SCH (20:34)
[2021-11-20 07:22] LABS: #Eosinphils 0.2 thou/uL (0.0-0.7); #Lymphocytes 1.6 thou/uL (1.20-3.40); #Monocytes 0.7 thou/uL (0.11-0.59); #Neutrophils 4.6 thou/uL (1.40-6.50); %Basophils 0.6 % (0.0-1.0); %Eosinophils 2.6 % (0.0-10.0); %Lymphocytes 22.7 % (21.0-51.0); %Monocytes 9.3 % (0.0-10.0); %Neutrophils 64.8 % (42.0-75.0); Hemoglobin 13.1 g/dL (14.0-18.0); Mean Corpuscular HGB CONC 32.7 g/dL (32.0-36.0); Mean Corpuscular Hemoglobin 33.5 pg (27.0-31.0); Mean Platelet Volume 7.4 fL (7.4-10.4); Platelet Count 158 thou/uL (130-400); RBC Distribution Width 13.3 % (11.5-14.5); White Blood Cell (WBC) Count 7.2 thou/uL (4.8-10.8)
[2021-11-20 07:39] LABS: Anion Gap 14 mmol/L (10-20); BUN (Urea Nitrogen) 25 mg/dL (8.4-25.7); Calc. Creatinine Clearance 91 mL/min (70-130); Calcium 9.2 mg/dL (7.8-10.44); Carbon Dioxide 30 mmol/L (23-31); Chloride 100 mmol/L (98-107); Estimated GFR 61; Glucose 99 mg/dL (83-110); Potassium 3.5 mmol/L (3.5-5.1); Sodium 140 mmol/L (136-145)
[2021-11-20] MEDS: Metolazone 5 MG TAB PO SCH (09:36)
[2021-11-20] MEDS: hydrALAZINE 25 MG TAB PO SCH ×2 (09:37→21:08)
[2021-11-20] MEDS: DULoxetine 60 MG CAP PO SCH (09:37)
[2021-11-20] MEDS: Tamsulosin HCl 0.4 MG CAP PO SCH (09:37)
[2021-11-20] MEDS: Gabapentin 100 MG CAP PO SCH ×3 (09:37→21:09)
[2021-11-20] MEDS: tiZANidine HCl 4 MG TAB PO SCH ×4 (09:38→21:09)
[2021-11-20] MEDS: Polyethylene Glycol 3350 17 GM Packet PO SCH (09:40)
[2021-11-20] MEDS: Enoxaparin Sodium 40 MG/0.4 ML SYRINGE SC SCH (09:40)
[2021-11-20] MEDS: Donepezil HCl 10 MG TAB PO SCH (21:09)
[2021-11-21] MEDS: Tamsulosin HCl 0.4 MG CAP PO SCH (08:50)
[2021-11-21] MEDS: hydrALAZINE 25 MG TAB PO SCH ×2 (08:50→21:12)
[2021-11-21] MEDS: Metolazone 5 MG TAB PO SCH (08:50)
[2021-11-21] MEDS: Gabapentin 100 MG CAP PO SCH ×3 (08:51→21:04)
[2021-11-21] MEDS: tiZANidine HCl 4 MG TAB PO SCH ×4 (08:51→21:03)
[2021-11-21] MEDS: DULoxetine 60 MG CAP PO SCH (08:51)
[2021-11-21] MEDS: Polyethylene Glycol 3350 17 GM Packet PO SCH (08:52)
[2021-11-21] MEDS ORDERED: Acetaminophen 325 MG TAB PO PRN (20:31)
[2021-11-21] MEDS ORDERED: Acetaminophen 650 MG Suppository PR PRN (20:32)
[2021-11-21] MEDS: Donepezil HCl 10 MG TAB PO SCH (21:05)
[2021-11-22 07:36] LABS: #Eosinphils 0.1 thou/uL (0.0-0.7); #Lymphocytes 2.1 thou/uL (1.20-3.40); #Monocytes 1.3 thou/uL (0.11-0.59); #Neutrophils 11.1 thou/uL (1.40-6.50); %Basophils 0.1 % (0.0-1.0); %Eosinophils 0.7 % (0.0-10.0); %Lymphocytes 14.6 % (21.0-51.0); %Neutrophils 75.6 % (42.0-75.0); Hemoglobin 12.8 g/dL (14.0-18.0); Mean Corpuscular HGB CONC 33.8 g/dL (32.0-36.0); Mean Corpuscular Hemoglobin 34.1 pg (27.0-31.0); Mean Platelet Volume 7.4 fL (7.4-10.4); Platelet Count 163 thou/uL (130-400); RBC Distribution Width 13.3 % (11.5-14.5); Red Blood Cell (RBC) Count 3.76 mill/uL (4.70-6.10); White Blood Cell (WBC) Count 14.6 thou/uL (4.8-10.8)
[2021-11-22 07:51] LABS: Anion Gap 14 mmol/L (10-20); BUN (Urea Nitrogen) 42 mg/dL (8.4-25.7); Calc. Creatinine Clearance 62 mL/min (70-130); Calcium 9.2 mg/dL (7.8-10.44); Carbon Dioxide 29 mmol/L (23-31); Chloride 98 mmol/L (98-107); Estimated GFR 38; Glucose 102 mg/dL (83-110); Potassium 3.3 mmol/L (3.5-5.1); Sodium 138 mmol/L (136-145)
[2021-11-22] MEDS: Gabapentin 100 MG CAP PO SCH ×3 (11:42→20:35)
[2021-11-22] MEDS: Polyethylene Glycol 3350 17 GM Packet PO SCH (11:43)
[2021-11-22] MEDS: tiZANidine HCl 4 MG TAB PO SCH ×4 (11:43→20:36)
[2021-11-22] MEDS: Enoxaparin Sodium 40 MG/0.4 ML SYRINGE SC SCH (12:18)
[2021-11-22] MEDS: hydrALAZINE 25 MG TAB PO SCH ×2 (12:21→20:37)
[2021-11-22] MEDS: DULoxetine 60 MG CAP PO SCH (12:21)
[2021-11-22] MEDS: Tamsulosin HCl 0.4 MG CAP PO SCH (12:21)
[2021-11-22] MEDS: Metolazone 5 MG TAB PO SCH (12:22)
[2021-11-22] MEDS: cefTRIAXone\\ROCEPHIN 2 GM in Sodium Chloride 0.9% 100 ML IVPB SCH (13:43)
[2021-11-22 15:08] LABS: Bacteria/HPF 4+ HPF (None Seen); Bilirubin Negative (Negative); Blood, Urine 2+ (Negative); Clarity Turbid (Clear); Glucose, Urine (Dipstick) Normal (Negative); Ketone, Urine Negative (Negative); Leukocyte 500 Leu/uL (Negative); Nitrite 1+ (Negative); Protein, Urine (Dipstick) 50 mg/dL (Neg-Trace); Specific Gravity, Urine 1.014 (1.002-1.036); Squamous Epithelial None Seen HPF (0-3); Urobilinogen Normal mg/dL (Less than 2); WBC/HPF Greater than 50 HPF (0-3); pH, Urine 5.5 (5.0-9.0)
[2021-11-22 15:09] LABS: Urine Culture Reflex Yes Yes
[2021-11-22] MEDS: Donepezil HCl 10 MG TAB PO SCH (20:35)
[2021-11-23 06:02] LABS: #Eosinphils 0.2 thou/uL (0.0-0.7); #Lymphocytes 1.7 thou/uL (1.20-3.40); #Monocytes 0.9 thou/uL (0.11-0.59); #Neutrophils 7.4 thou/uL (1.40-6.50); %Basophils 0.1 % (0.0-1.0); %Eosinophils 2.2 % (0.0-10.0); %Lymphocytes 16.8 % (21.0-51.0); %Monocytes 8.9 % (0.0-10.0); Hemoglobin 11.6 g/dL (14.0-18.0); Mean Corpuscular HGB CONC 33.2 g/dL (32.0-36.0); Mean Corpuscular Hemoglobin 33.9 pg (27.0-31.0); Mean Platelet Volume 7.9 fL (7.4-10.4); Platelet Count 159 thou/uL (130-400); RBC Distribution Width 13.2 % (11.5-14.5); Red Blood Cell (RBC) Count 3.42 mill/uL (4.70-6.10); White Blood Cell (WBC) Count 10.3 thou/uL (4.8-10.8)
[2021-11-23 06:20] LABS: Anion Gap 13 mmol/L (10-20); BUN (Urea Nitrogen) 45 mg/dL (8.4-25.7); Calc. Creatinine Clearance 66 mL/min (70-130); Carbon Dioxide 30 mmol/L (23-31); Chloride 100 mmol/L (98-107); Estimated GFR 41; Glucose 109 mg/dL (83-110); Potassium 3.4 mmol/L (3.5-5.1); Sodium 140 mmol/L (136-145)
[2021-11-23] MEDS: Tamsulosin HCl 0.4 MG CAP PO SCH (08:38)
[2021-11-23] MEDS: Metolazone 5 MG TAB PO SCH (08:38)
[2021-11-23] MEDS: hydrALAZINE 25 MG TAB PO SCH ×2 (08:38→21:36)
[2021-11-23] MEDS: tiZANidine HCl 4 MG TAB PO SCH ×4 (08:39→21:31)
[2021-11-23] MEDS: Polyethylene Glycol 3350 17 GM Packet PO SCH (08:39)
[2021-11-23] MEDS: DULoxetine 60 MG CAP PO SCH (08:39)
[2021-11-23] MEDS: Gabapentin 100 MG CAP PO SCH ×3 (08:40→21:30)
[2021-11-23] MEDS: Enoxaparin Sodium 40 MG/0.4 ML SYRINGE SC SCH (08:41)
[2021-11-23] MEDS ORDERED: Cefepime 1 GM VIAL ONE (10:58)
[2021-11-23] MEDS ORDERED: cefTRIAXone\\ROCEPHIN 2 GM VIAL ONE ×2 (11:00→11:03)
[2021-11-23] MEDS ORDERED: cefTRIAXone\\ROCEPHIN 1 GM VIAL ONE (11:00)
[2021-11-23] MEDS: cefTRIAXone\\ROCEPHIN 2 GM in Sodium Chloride 0.9% 100 ML IVPB SCH (11:09)
[2021-11-23] MEDS: Donepezil HCl 10 MG TAB PO SCH (21:31)
[2021-11-24 06:05] LABS: #Eosinphils 0.2 thou/uL (0.0-0.7); #Lymphocytes 1.7 thou/uL (1.20-3.40); #Monocytes 0.8 thou/uL (0.11-0.59); #Neutrophils 5.2 thou/uL (1.40-6.50); %Basophils 0.2 % (0.0-1.0); %Eosinophils 3.1 % (0.0-10.0); %Lymphocytes 21.4 % (21.0-51.0); %Monocytes 10.4 % (0.0-10.0); %Neutrophils 64.9 % (42.0-75.0); Hemoglobin 12.1 g/dL (14.0-18.0); Mean Corpuscular HGB CONC 33.5 g/dL (32.0-36.0); Mean Corpuscular Hemoglobin 34.2 pg (27.0-31.0); Mean Platelet Volume 7.3 fL (7.4-10.4); Platelet Count 177 thou/uL (130-400); Red Blood Cell (RBC) Count 3.54 mill/uL (4.70-6.10)
[2021-11-24 06:23] LABS: Anion Gap 12 mmol/L (10-20); BUN (Urea Nitrogen) 47 mg/dL (8.4-25.7); Calc. Creatinine Clearance 75 mL/min (70-130); Calcium 9.3 mg/dL (7.8-10.44); Carbon Dioxide 32 mmol/L (23-31); Chloride 101 mmol/L (98-107); Estimated GFR 48; Glucose 105 mg/dL (83-110); Potassium 3.3 mmol/L (3.5-5.1); Sodium 142 mmol/L (136-145)
[2021-11-24] MEDS: Metolazone 5 MG TAB PO SCH (08:34)
[2021-11-24] MEDS: hydrALAZINE 25 MG TAB PO SCH (08:35)
[2021-11-24] MEDS: tiZANidine HCl 4 MG TAB PO SCH ×2 (08:35→11:56)
[2021-11-24] MEDS: DULoxetine 60 MG CAP PO SCH (08:35)
[2021-11-24] MEDS: Gabapentin 100 MG CAP PO SCH (08:35)
[2021-11-24] MEDS: Tamsulosin HCl 0.4 MG CAP PO SCH (08:35)
[2021-11-24 08:36] VITALS: BP 149/75
[2021-11-24] MEDS: Enoxaparin Sodium 40 MG/0.4 ML SYRINGE SC SCH (08:36)
[2021-11-24] MEDS: Polyethylene Glycol 3350 17 GM Packet PO SCH (09:15)
[2021-11-24 09:25] VITALS: TEMP 98.6
[2021-11-24] MEDS ORDERED: cefTRIAXone\\ROCEPHIN 2 GM VIAL ONE (11:51)
[2021-11-24] MEDS: cefTRIAXone\\ROCEPHIN 2 GM in Sodium Chloride 0.9% 100 ML IVPB SCH (11:55)
== END 2021-11-24 14:10 | disposition swing bed (61) | DRG 552 ==
LOC: ERS → ERHOLD 05:33 → OBSVTOIN 07:17 → T4-A 15:26
PROVIDERS: ADMIT Specialist; ATTEND Specialist
DX: M48.061 Spinal stenosis, lumbar region without neurogenic claudication (principal); Z68.41 Body mass index [BMI] 40.0-44.9, adult; N39.0 Urinary tract infection, site not specified; Z20.822 Contact with and (suspected) exposure to COVID-19; E66.01 Morbid (severe) obesity due to excess calories; E03.9 Hypothyroidism, unspecified; F03.90 Unspecified dementia, unspecified severity, without behavioral disturbance, psychotic disturbance, mood disturbance, and anxiety; N40.0 Benign prostatic hyperplasia without lower urinary tract symptoms; M19.90 Unspecified osteoarthritis, unspecified site; N18.30 Chronic kidney disease, stage 3 unspecified; I12.9 Hypertensive chronic kidney disease with stage 1 through stage 4 chronic kidney disease, or unspecified chronic kidney disease; Z96.659 Presence of unspecified artificial knee joint; B96.20 Unspecified Escherichia coli [E. coli] as the cause of diseases classified elsewhere; Z86.73 Personal history of transient ischemic attack (TIA), and cerebral infarction without residual deficits; Z98.890 Other specified postprocedural states; Z87.891 Personal history of nicotine dependence; Z79.899 Other long term (current) drug therapy
CPT/HCPCS: 36415; 71045; 72148; 80048; 80053; 80061; 81001; 83036; 83735; 85025; 87040; 87077; 87086; 87186; J0696; J1650; J3490; J7050; U0002; U0003; U0005

== ENCOUNTER 2021-12-17 16:57 | Inpatient (IN) | payer OTHER ==
[2021-12-17 18:18] VITALS: BMI 38.7
[2021-12-17] MEDS ORDERED: Acetaminophen 325 MG TAB PO PRN ×2 (18:30→21:27)
[2021-12-17] MEDS ORDERED: Polyethylene Glycol 3350 17 GM Packet PO PRN (21:05)
[2021-12-17] MEDS: Calcium Carbonate 600 MG + Vit D TAB PO SCH (21:52)
[2021-12-17] MEDS: Gabapentin 100 MG CAP PO SCH (21:53)
[2021-12-17] MEDS: Magnesium Oxide 400 MG TAB PO SCH (21:53)
[2021-12-17] MEDS: Ascorbic Acid 500 mg Chewable Tablet PO SCH (21:54)
[2021-12-17] MEDS: Aspirin Chewable 81 MG TAB PO SCH (21:54)
[2021-12-17] MEDS: Cholecalciferol 1,000 UNITS (25 MCG) TAB PO SCH (21:54)
[2021-12-17] MEDS: Donepezil HCl 10 MG TAB PO SCH (21:54)
[2021-12-17] MEDS: Tamsulosin HCl 0.4 MG CAP PO SCH (21:54)
[2021-12-17] MEDS: Nystatin Cream 15 GM TUBE TOP SCH (21:58)
[2021-12-17] MEDS ORDERED: cefTRIAXone\\ROCEPHIN 1 GM in Sodium Chloride 0.9% 100 ML IVPB SCH (22:00)
[2021-12-18] MEDS ORDERED: FLAXSEED OIL 1300 MG PO SCH (09:00)
[2021-12-18] MEDS: Calcium Carbonate 600 MG + Vit D TAB PO SCH ×2 (09:19→20:53)
[2021-12-18] MEDS: DULoxetine 60 MG CAP PO SCH (09:19)
[2021-12-18] MEDS: Aspirin Chewable 81 MG TAB PO SCH ×2 (09:19→20:53)
[2021-12-18] MEDS: Gabapentin 100 MG CAP PO SCH ×3 (09:19→20:53)
[2021-12-18] MEDS: Cholecalciferol 1,000 UNITS (25 MCG) TAB PO SCH ×2 (09:20→20:52)
[2021-12-18] MEDS: Febuxostat 40 MG TAB PO SCH (09:20)
[2021-12-18] MEDS: Ascorbic Acid 500 mg Chewable Tablet PO SCH ×2 (09:20→20:52)
[2021-12-18] MEDS: Nystatin Cream 15 GM TUBE TOP SCH ×2 (09:21→20:53)
[2021-12-18 10:48] LABS: #Eosinphils 0.2 thou/uL (0.0-0.7); #Lymphocytes 2.2 thou/uL (1.20-3.40); #Monocytes 0.7 thou/uL (0.11-0.59); #Neutrophils 4.9 thou/uL (1.40-6.50); %Basophils 0.6 % (0.0-1.0); %Eosinophils 3.1 % (0.0-10.0); %Lymphocytes 27.2 % (21.0-51.0); %Monocytes 8.3 % (0.0-10.0); %Neutrophils 60.9 % (42.0-75.0); Hemoglobin 12.6 g/dL (14.0-18.0); Mean Corpuscular Hemoglobin 32.5 pg (27.0-31.0); Mean Platelet Volume 7.2 fL (7.4-10.4); Platelet Count 159 thou/uL (130-400); RBC Distribution Width 13.8 % (11.5-14.5); Red Blood Cell (RBC) Count 3.87 mill/uL (4.70-6.10)
[2021-12-18 10:52] LABS: Anion Gap 20 mmol/L (10-20); BUN (Urea Nitrogen) 23 mg/dL (8.4-25.7); Calc. Creatinine Clearance 66 mL/min (70-130); Calcium 9.8 mg/dL (7.8-10.44); Carbon Dioxide 26 mmol/L (23-31); Chloride 97 mmol/L (98-107); Estimated GFR 44; Glucose 88 mg/dL (83-110); Potassium 4.2 mmol/L (3.5-5.1); Sodium 139 mmol/L (136-145)
[2021-12-18] MEDS: cefTRIAXone\\ROCEPHIN 1 GM in Sodium Chloride 0.9% 100 ML IVPB SCH (15:07)
[2021-12-18] MEDS: Magnesium Oxide 400 MG TAB PO SCH (20:52)
[2021-12-18] MEDS: Donepezil HCl 10 MG TAB PO SCH (20:52)
[2021-12-18] MEDS: Tamsulosin HCl 0.4 MG CAP PO SCH (20:53)
[2021-12-19 06:53] LABS: #Eosinphils 0.3 thou/uL (0.0-0.7); #Lymphocytes 2.1 thou/uL (1.20-3.40); #Monocytes 0.6 thou/uL (0.11-0.59); #Neutrophils 3.3 thou/uL (1.40-6.50); %Basophils 0.4 % (0.0-1.0); %Eosinophils 4.3 % (0.0-10.0); %Monocytes 9.9 % (0.0-10.0); %Neutrophils 52.4 % (42.0-75.0); Hemoglobin 11.8 g/dL (14.0-18.0); Mean Corpuscular Hemoglobin 34.8 pg (27.0-31.0); Mean Platelet Volume 7.4 fL (7.4-10.4); Platelet Count 135 thou/uL (130-400); RBC Distribution Width 13.7 % (11.5-14.5); Red Blood Cell (RBC) Count 3.39 mill/uL (4.70-6.10); White Blood Cell (WBC) Count 6.2 thou/uL (4.8-10.8)
[2021-12-19 07:12] LABS: Anion Gap 16 mmol/L (10-20); BUN (Urea Nitrogen) 25 mg/dL (8.4-25.7); Calc. Creatinine Clearance 73 mL/min (70-130); Carbon Dioxide 32 mmol/L (23-31); Chloride 98 mmol/L (98-107); Estimated GFR 50; Glucose 101 mg/dL (83-110); Potassium 3.9 mmol/L (3.5-5.1); Sodium 142 mmol/L (136-145)
[2021-12-19] MEDS: cloNIDine 0.1 MG TAB PO SCH ×2 (08:54→20:31)
[2021-12-19] MEDS: Aspirin Chewable 81 MG TAB PO SCH ×2 (08:55→20:30)
[2021-12-19] MEDS: Ascorbic Acid 500 mg Chewable Tablet PO SCH ×2 (08:55→20:30)
[2021-12-19] MEDS: Cholecalciferol 1,000 UNITS (25 MCG) TAB PO SCH ×2 (08:55→20:31)
[2021-12-19] MEDS: DULoxetine 60 MG CAP PO SCH (08:55)
[2021-12-19] MEDS: Gabapentin 100 MG CAP PO SCH ×3 (08:55→20:30)
[2021-12-19] MEDS: Febuxostat 40 MG TAB PO SCH (08:56)
[2021-12-19] MEDS: Enoxaparin Sodium 40 MG/0.4 ML SYRINGE SC SCH (08:56)
[2021-12-19] MEDS: Calcium Carbonate 600 MG + Vit D TAB PO SCH ×2 (08:58→20:29)
[2021-12-19] MEDS: Nystatin Cream 15 GM TUBE TOP SCH ×2 (09:00→20:31)
[2021-12-19 09:20] LABS: #Basophils 0.2 thou/uL (0.0-0.2); #Eosinphils 0.2 thou/uL (0.0-0.7); #Lymphocytes 1.7 thou/uL (1.20-3.40); #Monocytes 0.6 thou/uL (0.11-0.59); #Neutrophils 3.6 thou/uL (1.40-6.50); %Basophils 2.6 % (0.0-1.0); %Eosinophils 3.5 % (0.0-10.0); %Lymphocytes 26.9 % (21.0-51.0); %Monocytes 10.1 % (0.0-10.0); Hemoglobin 11.8 g/dL (14.0-18.0); Mean Corpuscular HGB CONC 33.4 g/dL (32.0-36.0); Mean Corpuscular Hemoglobin 33.8 pg (27.0-31.0); Platelet Count 132 thou/uL (130-400); RBC Distribution Width 13.8 % (11.5-14.5); Red Blood Cell (RBC) Count 3.49 mill/uL (4.70-6.10); White Blood Cell (WBC) Count 6.4 thou/uL (4.8-10.8)
[2021-12-19 09:37] LABS: Anion Gap 13 mmol/L (10-20); BUN (Urea Nitrogen) 25 mg/dL (8.4-25.7); Calc. Creatinine Clearance 74 mL/min (70-130); Calcium 9.8 mg/dL (7.8-10.44); Carbon Dioxide 35 mmol/L (23-31); Chloride 98 mmol/L (98-107); Estimated GFR 50; Glucose 101 mg/dL (83-110); Potassium 4.5 mmol/L (3.5-5.1); Sodium 141 mmol/L (136-145)
[2021-12-19] MEDS: cefTRIAXone\\ROCEPHIN 1 GM in Sodium Chloride 0.9% 100 ML IVPB SCH (17:43)
[2021-12-19] MEDS: Magnesium Oxide 400 MG TAB PO SCH (20:29)
[2021-12-19] MEDS: Tamsulosin HCl 0.4 MG CAP PO SCH (20:29)
[2021-12-19] MEDS: Donepezil HCl 10 MG TAB PO SCH (20:31)
[2021-12-20] MEDS: Aspirin Chewable 81 MG TAB PO SCH ×2 (08:12→20:57)
[2021-12-20] MEDS: Febuxostat 40 MG TAB PO SCH (08:12)
[2021-12-20] MEDS: Ascorbic Acid 500 mg Chewable Tablet PO SCH ×2 (08:12→20:57)
[2021-12-20] MEDS: Calcium Carbonate 600 MG + Vit D TAB PO SCH ×2 (08:12→20:59)
[2021-12-20] MEDS: Gabapentin 100 MG CAP PO SCH ×3 (08:12→21:09)
[2021-12-20] MEDS: Enoxaparin Sodium 40 MG/0.4 ML SYRINGE SC SCH (08:13)
[2021-12-20] MEDS: Cholecalciferol 1,000 UNITS (25 MCG) TAB PO SCH ×2 (08:13→20:59)
[2021-12-20] MEDS: DULoxetine 60 MG CAP PO SCH (08:13)
[2021-12-20] MEDS: Nystatin Cream 15 GM TUBE TOP SCH ×2 (08:14→21:08)
[2021-12-20] MEDS: cloNIDine 0.1 MG TAB PO SCH ×2 (08:26→21:00)
[2021-12-20 09:25] LABS: #Eosinphils 0.2 thou/uL (0.0-0.7); #Lymphocytes 1.7 thou/uL (1.20-3.40); #Monocytes 0.4 thou/uL (0.11-0.59); #Neutrophils 3.9 thou/uL (1.40-6.50); %Basophils 0.3 % (0.0-1.0); %Eosinophils 3.9 % (0.0-10.0); %Lymphocytes 27.1 % (21.0-51.0); %Monocytes 6.6 % (0.0-10.0); %Neutrophils 62.1 % (42.0-75.0); Hemoglobin 12.3 g/dL (14.0-18.0); Mean Corpuscular HGB CONC 32.9 g/dL (32.0-36.0); Mean Corpuscular Hemoglobin 33.7 pg (27.0-31.0); Platelet Count 137 thou/uL (130-400); RBC Distribution Width 13.7 % (11.5-14.5); Red Blood Cell (RBC) Count 3.64 mill/uL (4.70-6.10); White Blood Cell (WBC) Count 6.2 thou/uL (4.8-10.8)
[2021-12-20 09:42] LABS: Anion Gap 15 mmol/L (10-20); BUN (Urea Nitrogen) 22 mg/dL (8.4-25.7); Calc. Creatinine Clearance 78 mL/min (70-130); Calcium 10.1 mg/dL (7.8-10.44); Carbon Dioxide 33 mmol/L (23-31); Chloride 96 mmol/L (98-107); Estimated GFR 54; Glucose 125 mg/dL (83-110); Potassium 3.7 mmol/L (3.5-5.1); Sodium 140 mmol/L (136-145)
[2021-12-20] MEDS: cefTRIAXone\\ROCEPHIN 1 GM in Sodium Chloride 0.9% 100 ML IVPB SCH (16:03)
[2021-12-20] MEDS: Tamsulosin HCl 0.4 MG CAP PO SCH (20:57)
[2021-12-20] MEDS: Magnesium Oxide 400 MG TAB PO SCH (20:59)
[2021-12-20] MEDS: Donepezil HCl 10 MG TAB PO SCH (21:00)
[2021-12-21] MEDS: cloNIDine 0.1 MG TAB PO SCH (07:58)
[2021-12-21] MEDS: Febuxostat 40 MG TAB PO SCH (07:58)
[2021-12-21] MEDS: Enoxaparin Sodium 40 MG/0.4 ML SYRINGE SC SCH (07:58)
[2021-12-21] MEDS: Aspirin Chewable 81 MG TAB PO SCH (07:59)
[2021-12-21] MEDS: Calcium Carbonate 600 MG + Vit D TAB PO SCH (07:59)
[2021-12-21] MEDS: Gabapentin 100 MG CAP PO SCH ×2 (07:59→15:20)
[2021-12-21] MEDS: Ascorbic Acid 500 mg Chewable Tablet PO SCH (07:59)
[2021-12-21] MEDS: DULoxetine 60 MG CAP PO SCH (07:59)
[2021-12-21] MEDS: Cholecalciferol 1,000 UNITS (25 MCG) TAB PO SCH (07:59)
[2021-12-21] MEDS: Nystatin Cream 15 GM TUBE TOP SCH (08:03)
[2021-12-21 08:48] LABS: #Eosinphils 0.2 thou/uL (0.0-0.7); #Lymphocytes 2.1 thou/uL (1.20-3.40); #Monocytes 0.5 thou/uL (0.11-0.59); #Neutrophils 4.2 thou/uL (1.40-6.50); %Basophils 0.7 % (0.0-1.0); %Eosinophils 3.1 % (0.0-10.0); %Lymphocytes 29.9 % (21.0-51.0); %Monocytes 7.4 % (0.0-10.0); Hemoglobin 12.2 g/dL (14.0-18.0); Mean Corpuscular HGB CONC 32.8 g/dL (32.0-36.0); Mean Corpuscular Hemoglobin 33.5 pg (27.0-31.0); Mean Platelet Volume 7.1 fL (7.4-10.4); Platelet Count 136 thou/uL (130-400); RBC Distribution Width 13.9 % (11.5-14.5); Red Blood Cell (RBC) Count 3.63 mill/uL (4.70-6.10)
[2021-12-21 10:03] LABS: Calcium 10.1 mg/dL (7.8-10.44); Chloride 97 mmol/L (98-107); Potassium 3.8 mmol/L (3.5-5.1); Sodium 140 mmol/L (136-145)
[2021-12-21 10:04] LABS: Glucose 97 mg/dL (83-110)
[2021-12-21 10:05] LABS: Anion Gap 17 mmol/L (10-20); Carbon Dioxide 30 mmol/L (23-31)
[2021-12-21 10:07] LABS: Calc. Creatinine Clearance 74 mL/min (70-130); Estimated GFR 50
[2021-12-21 10:08] LABS: BUN (Urea Nitrogen) 29 mg/dL (8.4-25.7)
[2021-12-21] MEDS: cefTRIAXone\\ROCEPHIN 1 GM in Sodium Chloride 0.9% 100 ML IVPB SCH (15:20)
[2021-12-21 17:12] VITALS: BP 139/78; TEMP 97.9
== END 2021-12-21 18:09 | DRG 690 ==
LOC: 2NO 17:59 → T4-B 12-19 00:53
PROVIDERS: ADMIT Specialist; ATTEND Specialist
DX: N39.0 Urinary tract infection, site not specified (principal); Z20.822 Contact with and (suspected) exposure to COVID-19; E66.01 Morbid (severe) obesity due to excess calories; E03.9 Hypothyroidism, unspecified; F03.90 Unspecified dementia, unspecified severity, without behavioral disturbance, psychotic disturbance, mood disturbance, and anxiety; N40.0 Benign prostatic hyperplasia without lower urinary tract symptoms; M19.90 Unspecified osteoarthritis, unspecified site; N18.30 Chronic kidney disease, stage 3 unspecified; I12.9 Hypertensive chronic kidney disease with stage 1 through stage 4 chronic kidney disease, or unspecified chronic kidney disease; R00.1 Bradycardia, unspecified; I44.60 Unspecified fascicular block; Z79.82 Long term (current) use of aspirin; Z91.14 Patient's other noncompliance with medication regimen; Z79.899 Other long term (current) drug therapy; Z68.38 Body mass index [BMI] 38.0-38.9, adult
CPT/HCPCS: 36415; 80048; 85025; 94760; J0696; J1650; J3490; U0003; U0005

== ENCOUNTER 2022-03-26 13:01 | Inpatient (IN) | payer MEDICARE, OTHER ==
[2022-03-26 14:05] LABS: Actual Bicarbonate (HCO3a) 27.8 mEq/L (22-28); Analyzer IN Cardio ER; Base Excess (BEa) 2.5 mEq/L (-2.0 to +3.0); CO2 Tension 45.2 mmHg (35.0-45.0); Calcium, Ionized (arterial) 1.15 mmol/L (1.12-1.30); Carboxyhemoglobin (COHb) 0.6 gm% (0.0-3.0); Hemoglobin (Hb) 13.7 g/dL (14.0-18.0); O2 Tension (PaO2), arterial 78.9 mmHg (> 70.0); Potassium - ABG Lab 3.57 mmol/L (3.70-5.30); pH, Arterial 7.41 (7.35-7.45)
[2022-03-26 14:08] LABS: Puncture Site LRA
[2022-03-26 14:27] LABS: Bacteria/HPF 1+ HPF (None Seen); Bilirubin Negative (Negative); Blood, Urine 3+ (Negative); Clarity Cloudy (Clear); Glucose, Urine (Dipstick) Normal (Negative); Ketone, Urine 10 mg/dL (Negative); Leukocyte Negative Leu/uL (Negative); Nitrite Negative (Negative); Protein, Urine (Dipstick) 300 mg/dL (Neg-Trace); RBC/HPF Greater than 50 HPF (0-3); Specific Gravity, Urine 1.022 (1.002-1.036); Squamous Epithelial 0-3 HPF (0-3); Urobilinogen Normal mg/dL (Less than 2); pH, Urine 6.5 (5.0-9.0)
[2022-03-26 14:35] LABS: ALT (SGPT) 16 U/L (8-55); AST (SGOT) 26 U/L (5-34); Albumin 2.9 g/dL (3.4-4.8); Alkaline Phosphatase 74 U/L (40-110); Anion Gap 12 mmol/L (10-20); BUN (Urea Nitrogen) 19 mg/dL (8.4-25.7); Bilirubin, Total 0.5 mg/dL (0.2-1.2); Calc. Creatinine Clearance 0 mL/min (70-130); Calcium 8.5 mg/dL (7.8-10.44); Carbon Dioxide 26 mmol/L (23-31); Chloride 104 mmol/L (98-107); Estimated GFR 49; Globulin 3.5 g/dL (2.4-3.5); Glucose 99 mg/dL (83-110); Potassium 3.6 mmol/L (3.5-5.1); Protein, Total 6.4 g/dL (5.8-8.1); Sodium 138 mmol/L (136-145)
[2022-03-26 14:55] LABS: #Monocytes 1.1 thou/uL (0.11-0.59); #Neutrophils 4.8 thou/uL (1.40-6.50); %Basophils 0.6 % (0.0-1.0); %Eosinophils 0.3 % (0.0-10.0); %Monocytes 13.7 % (0.0-10.0); %Neutrophils 60.4 % (42.0-75.0); Hemoglobin 13.6 g/dL (14.0-18.0); MDiff Complete? YES; Macrocytosis SLIGHT = 6-15 cells (100X) (0-5/hpf); Mean Corpuscular HGB CONC 32.4 g/dL (32.0-36.0); Mean Corpuscular Hemoglobin 33.1 pg (27.0-31.0); Mean Platelet Volume 8.2 fL (7.4-10.4); Platelet Count 114 10x3/uL (130-400); Platelet Morphology Comment Appears Decreased; Polychromasia SLIGHT = 2-3 cells (100X) (0-2/hpf); RBC Distribution Width 13.9 % (11.5-14.5); White Blood Cell (WBC) Count 7.9 10x3/uL (4.8-10.8)
[2022-03-26 15:02] LABS: CKMB 0.9 ng/mL (0-6.6)
[2022-03-26 15:09] LABS: SARS-CoV-2 NAA Rapid Test DETECTED (NotDetected)
[2022-03-26] MEDS ORDERED: hydrALAZINE 20 MG/ML VIAL ONE (15:54)
[2022-03-26] MEDS ORDERED: Acetaminophen 500 MG TAB ONE (15:54)
[2022-03-26] MEDS ORDERED: Dexamethasone 4 mg/ml Vial ONE (16:33)
[2022-03-26] MEDS ORDERED: Ibuprofen 800 MG TAB ONE (16:33)
[2022-03-26] MEDS ORDERED: Cefepime 2 GM VIAL ONE (16:33)
[2022-03-26] MEDS ORDERED: Vancomycin 1 GM/200 ML (FROZEN) BAG ONE (16:58)
[2022-03-26 17:33] LABS: Critical Call Chem Troponin I RESULT DECREASING
[2022-03-26] MEDS ORDERED: Ondansetron PF 4 MG/2 ML Vial IVP PRN (18:31)
[2022-03-26] MEDS ORDERED: Dexamethasone 10 MG/ML VIAL SLOW IVP SCH (19:00)
[2022-03-26] MEDS ORDERED: Dexamethasone 10 MG in Sodium Chloride 0.9% 50 ML IVPB SCH (19:00)
[2022-03-26] MEDS ORDERED: Furosemide 20 MG/2 ML VIAL SLOW IVP SCH (19:00)
[2022-03-26] MEDS ORDERED: Pharmacy to Dose REMDESIVIR IVPB PRN (19:05)
[2022-03-26] MEDS ORDERED: Vancomycin 1.5 GRAM/300 ML BAG 1.5 GM in Premix Bag 1 BAG IVPB SCH (20:00)
[2022-03-26] MEDS ORDERED: Dexamethasone 10 MG/ML VIAL ONE (20:10)
[2022-03-26] MEDS ORDERED: Furosemide 20 MG/2 ML VIAL ONE (20:11)
[2022-03-26 20:15] LABS: Troponin I 0.625 ng/mL (< 0.028)
[2022-03-26] MEDS ORDERED: REMDESIVIR 200 MG in Sodium Chloride 0.9% 250 ML 210 ML IV SCH (21:00)
[2022-03-26] MEDS ORDERED: Famotidine/PF 20 mg/2ml Vial ONE (21:48)
[2022-03-26] MEDS: Famotidine/PF 20 mg/2ml Vial SLOW IVP SCH (22:03)
[2022-03-26 23:16] LABS: Critical Call Chem Troponin I RESULT DECREASING; Troponin I 0.604 ng/mL (< 0.028)
[2022-03-27] MEDS ORDERED: Cefepime 2 GM VIAL ONE (04:31)
[2022-03-27] MEDS: Cefepime 1 GM in Sodium Chloride 0.9% 100 ML IVPB SCH ×2 (04:32→16:22)
[2022-03-27] MEDS ORDERED: Cefepime 1 GM VIAL ONE ×2 (04:33→16:20)
[2022-03-27 06:28] VITALS: BMI 38.7
[2022-03-27 06:31] LABS: #Lymphocytes 1.4 thou/uL (1.20-3.40); #Monocytes 0.4 thou/uL (0.11-0.59); #Neutrophils 8.2 thou/uL (1.40-6.50); %Basophils 0.1 % (0.0-1.0); %Eosinophils 0.2 % (0.0-10.0); %Lymphocytes 13.9 % (21.0-51.0); %Monocytes 3.6 % (0.0-10.0); %Neutrophils 82.3 % (42.0-75.0); Hemoglobin 13.3 g/dL (14.0-18.0); Mean Corpuscular HGB CONC 33.1 g/dL (32.0-36.0); Mean Corpuscular Hemoglobin 33.6 pg (27.0-31.0); Mean Platelet Volume 8.1 fL (7.4-10.4); Platelet Count 110 10x3/uL (130-400); RBC Distribution Width 13.6 % (11.5-14.5); Red Blood Cell (RBC) Count 3.95 mill/uL (4.70-6.10)
[2022-03-27 06:56] LABS: ALT (SGPT) 15 U/L (8-55); AST (SGOT) 26 U/L (5-34); Albumin 2.7 g/dL (3.4-4.8); Alkaline Phosphatase 61 U/L (40-110); Anion Gap 12 mmol/L (10-20); BUN (Urea Nitrogen) 27 mg/dL (8.4-25.7); Bilirubin, Direct 0.1 mg/dL (0.1-0.3); Bilirubin, Total 0.3 mg/dL (0.2-1.2); Calc. Creatinine Clearance 70 mL/min (70-130); Calcium 8.1 mg/dL (7.8-10.44); Carbon Dioxide 27 mmol/L (23-31); Chloride 103 mmol/L (98-107); Estimated GFR 47; Globulin 3.4 g/dL (2.4-3.5); Glucose 161 mg/dL (83-110); Potassium 3.8 mmol/L (3.5-5.1); Protein, Total 6.1 g/dL (5.8-8.1); Sodium 138 mmol/L (136-145)
[2022-03-27] MEDS ORDERED: VANCOMYCIN 1.25 GM/250 ML BAG IVPB SCH (09:00)
[2022-03-27] MEDS: Dexamethasone 10 MG/ML VIAL SLOW IVP SCH (10:30)
[2022-03-27] MEDS ORDERED: Furosemide 40 MG/4 ML VIAL ONE (10:55)
[2022-03-27] MEDS: Furosemide 20 MG/2 ML VIAL SLOW IVP SCH (10:57)
[2022-03-27] MEDS ORDERED: Enoxaparin Sodium 40 MG/0.4 ML SYRINGE ONE (10:59)
[2022-03-27] MEDS ORDERED: Famotidine/PF 20 mg/2ml Vial ONE (11:00)
[2022-03-27] MEDS: Famotidine/PF 20 mg/2ml Vial SLOW IVP SCH ×2 (11:02→21:37)
[2022-03-27] MEDS: Enoxaparin Sodium 40 MG/0.4 ML SYRINGE SC SCH (11:02)
[2022-03-27] MEDS ORDERED: Polyethylene Glycol 3350 17 GM Packet PO PRN (12:03)
[2022-03-27] MEDS: VANCOMYCIN 1.75 GM/500 ML BAG 1.75 GM in Premix Bag 1 BAG IVPB SCH (17:24)
[2022-03-27] MEDS: REMDESIVIR 100 MG in Sodium Chloride 0.9% 250 ML 230 ML IV SCH (21:37)
[2022-03-27] MEDS: Albuterol 200 PUFF (6.7GM INHALER) INH SCH (23:46)
[2022-03-28] MEDS: Albuterol 200 PUFF (6.7GM INHALER) INH SCH ×5 (00:55→19:10)
[2022-03-28] MEDS ORDERED: VANCOMYCIN 1.25 GM/250 ML BAG 1.25 GM in Premix Bag 1 BAG IVPB SCH (03:40)
[2022-03-28] MEDS: Cefepime 1 GM in Sodium Chloride 0.9% 100 ML IVPB SCH ×2 (04:51→17:28)
[2022-03-28 05:25] LABS: ALT (SGPT) 18 U/L (8-55); AST (SGOT) 35 U/L (5-34); Albumin 2.7 g/dL (3.4-4.8); Alkaline Phosphatase 61 U/L (40-110); Bilirubin, Direct 0.2 mg/dL (0.1-0.3); Bilirubin, Total 0.4 mg/dL (0.2-1.2); Protein, Total 6.2 g/dL (5.8-8.1)
[2022-03-28] MEDS ORDERED: FLU VACC QS2022-23(65YR UP)/PF 240 MCG/0.7 ML SYRINGE IM ONE (09:00)
[2022-03-28] MEDS ORDERED: Tamsulosin HCl 0.4 MG CAP PO SCH (09:00)
[2022-03-28] MEDS: Furosemide 20 MG/2 ML VIAL SLOW IVP SCH (09:02)
[2022-03-28] MEDS: Aspirin Chewable 81 MG TAB PO SCH (09:03)
[2022-03-28] MEDS: Dexamethasone 10 MG/ML VIAL SLOW IVP SCH (09:04)
[2022-03-28] MEDS: Enoxaparin Sodium 40 MG/0.4 ML SYRINGE SC SCH (09:04)
[2022-03-28] MEDS: Famotidine/PF 20 mg/2ml Vial SLOW IVP SCH (09:06)
[2022-03-28 16:41] LABS: Vancomycin, Trough 17.8 ug/mL
[2022-03-28] MEDS ORDERED: Electrolyte Replacement Protocol FS SCH (17:15)
[2022-03-28] MEDS: VANCOMYCIN 1.75 GM/500 ML BAG 1.75 GM in Premix Bag 1 BAG IVPB SCH (17:28)
[2022-03-28] MEDS: Cyanocobalamin (Vitamin B-12) 1,000 MCG TAB PO SCH (21:35)
[2022-03-28] MEDS: Donepezil HCl 10 MG TAB PO SCH (21:35)
[2022-03-28] MEDS: Folic Acid 1 MG TAB PO SCH (21:36)
[2022-03-28] MEDS: Tamsulosin HCl 0.4 MG CAP PO SCH (21:36)
[2022-03-28] MEDS: REMDESIVIR 100 MG in Sodium Chloride 0.9% 250 ML 230 ML IV SCH (22:35)
[2022-03-29] MEDS: Albuterol 200 PUFF (6.7GM INHALER) INH SCH ×4 (02:30→18:51)
[2022-03-29 04:27] LABS: #Lymphocytes 1.1 thou/uL (1.20-3.40); #Monocytes 0.7 thou/uL (0.11-0.59); #Neutrophils 8.6 thou/uL (1.40-6.50); %Basophils 0.1 % (0.0-1.0); %Eosinophils 0.1 % (0.0-10.0); %Lymphocytes 10.6 % (21.0-51.0); %Monocytes 6.4 % (0.0-10.0); %Neutrophils 82.8 % (42.0-75.0); Hemoglobin 13.2 g/dL (14.0-18.0); Mean Corpuscular HGB CONC 33.5 g/dL (32.0-36.0); Mean Corpuscular Hemoglobin 33.8 pg (27.0-31.0); Mean Platelet Volume 8.6 fL (7.4-10.4); Platelet Count 126 10x3/uL (130-400); RBC Distribution Width 13.6 % (11.5-14.5); Red Blood Cell (RBC) Count 3.91 mill/uL (4.70-6.10); White Blood Cell (WBC) Count 10.4 10x3/uL (4.8-10.8)
[2022-03-29 04:56] LABS: ALT (SGPT) 28 U/L (8-55); AST (SGOT) 47 U/L (5-34); Albumin 2.9 g/dL (3.4-4.8); Alkaline Phosphatase 61 U/L (40-110); Anion Gap 15 mmol/L (10-20); BUN (Urea Nitrogen) 29 mg/dL (8.4-25.7); Bilirubin, Total 0.6 mg/dL (0.2-1.2); Calc. Creatinine Clearance 78 mL/min (70-130); Carbon Dioxide 25 mmol/L (23-31); Chloride 103 mmol/L (98-107); Estimated GFR 54; Globulin 3.1 g/dL (2.4-3.5); Glucose 126 mg/dL (83-110); Magnesium 1.9 mg/dL (1.6-2.6); Sodium 140 mmol/L (136-145)
[2022-03-29] MEDS ORDERED: Dexamethasone 4 mg/ml Vial SLOW IVP SCH (09:00)
[2022-03-29] MEDS: Aspirin Chewable 81 MG TAB PO SCH (10:26)
[2022-03-29] MEDS: DULoxetine 60 MG CAP PO SCH (10:26)
[2022-03-29] MEDS: Ascorbic Acid 500 mg Chewable Tablet PO SCH (10:26)
[2022-03-29] MEDS ORDERED: Magnesium 2 GM/50 ML(in water) 2 GM in Premix Bag 1 BAG IVPB SCH (10:30)
[2022-03-29] MEDS ORDERED: Potassium Chloride 20 MEQ TAB PO SCH ×2 (10:30→17:00)
[2022-03-29] MEDS: Enoxaparin Sodium 40 MG/0.4 ML SYRINGE SC SCH (12:37)
[2022-03-29] MEDS: hydrALAZINE 25 MG TAB PO SCH ×2 (15:46→22:30)
[2022-03-29] MEDS: VANCOMYCIN 1.75 GM/500 ML BAG 1.75 GM in Premix Bag 1 BAG IVPB SCH (17:29)
[2022-03-29] MEDS ORDERED: Labetalol HCl 100 MG/20 ML VIAL SLOW IVP PRN (17:36)
[2022-03-29] MEDS: Amlodipine 5 MG TAB PO SCH (22:30)
[2022-03-29] MEDS: Cyanocobalamin (Vitamin B-12) 1,000 MCG TAB PO SCH (22:30)
[2022-03-29] MEDS: Folic Acid 1 MG TAB PO SCH (22:30)
[2022-03-29] MEDS: Tamsulosin HCl 0.4 MG CAP PO SCH (22:31)
[2022-03-29] MEDS: REMDESIVIR 100 MG in Sodium Chloride 0.9% 250 ML 230 ML IV SCH (22:31)
[2022-03-29] MEDS: Donepezil HCl 10 MG TAB PO SCH (22:31)
[2022-03-30] MEDS: Albuterol 200 PUFF (6.7GM INHALER) INH SCH ×3 (02:42→12:51)
[2022-03-30 04:54] LABS: #Basophils 0.1 thou/uL (0.0-0.2); #Monocytes 0.6 thou/uL (0.11-0.59); #Neutrophils 5.6 thou/uL (1.40-6.50); %Basophils 1.5 % (0.0-1.0); %Eosinophils 0.4 % (0.0-10.0); %Lymphocytes 13.3 % (21.0-51.0); %Monocytes 8.3 % (0.0-10.0); %Neutrophils 76.5 % (42.0-75.0); Hemoglobin 12.6 g/dL (14.0-18.0); Mean Corpuscular HGB CONC 32.7 g/dL (32.0-36.0); Mean Corpuscular Hemoglobin 32.9 pg (27.0-31.0); Mean Platelet Volume 8.9 fL (7.4-10.4); Platelet Count 125 10x3/uL (130-400); RBC Distribution Width 13.6 % (11.5-14.5); Red Blood Cell (RBC) Count 3.83 mill/uL (4.70-6.10); White Blood Cell (WBC) Count 7.3 10x3/uL (4.8-10.8)
[2022-03-30 05:15] LABS: ALT (SGPT) 74 U/L (8-55); AST (SGOT) 83 U/L (5-34); Albumin 2.7 g/dL (3.4-4.8); Alkaline Phosphatase 57 U/L (40-110); Anion Gap 12 mmol/L (10-20); BUN (Urea Nitrogen) 26 mg/dL (8.4-25.7); Bilirubin, Total 0.7 mg/dL (0.2-1.2); Calc. Creatinine Clearance 93 mL/min (70-130); Calcium 8.1 mg/dL (7.8-10.44); Carbon Dioxide 27 mmol/L (23-31); Chloride 106 mmol/L (98-107); Estimated GFR 67; Globulin 3.3 g/dL (2.4-3.5); Glucose 131 mg/dL (83-110); Potassium 3.6 mmol/L (3.5-5.1); Sodium 141 mmol/L (136-145)
[2022-03-30] MEDS: Aspirin Chewable 81 MG TAB PO SCH (08:58)
[2022-03-30] MEDS: Amlodipine 5 MG TAB PO SCH ×2 (08:58→21:51)
[2022-03-30] MEDS: DULoxetine 60 MG CAP PO SCH (08:58)
[2022-03-30] MEDS: hydrALAZINE 25 MG TAB PO SCH ×3 (08:59→21:52)
[2022-03-30] MEDS: Furosemide 40 MG TAB PO SCH (09:00)
[2022-03-30] MEDS: Ascorbic Acid 500 mg Chewable Tablet PO SCH (09:00)
[2022-03-30] MEDS: Potassium Chloride 20 MEQ TAB PO SCH ×2 (09:01→17:08)
[2022-03-30] MEDS: Enoxaparin Sodium 40 MG/0.4 ML SYRINGE SC SCH (09:01)
[2022-03-30] MEDS: Dexamethasone 4 MG TAB PO SCH (09:01)
[2022-03-30] MEDS: VANCOMYCIN 1.75 GM/500 ML BAG 1.75 GM in Premix Bag 1 BAG IVPB SCH (17:07)
[2022-03-30 17:22] LABS: Vancomycin, Trough 18.4 ug/mL
[2022-03-30] MEDS: Donepezil HCl 10 MG TAB PO SCH (21:52)
[2022-03-30] MEDS: Folic Acid 1 MG TAB PO SCH (21:52)
[2022-03-30] MEDS: Cyanocobalamin (Vitamin B-12) 1,000 MCG TAB PO SCH (21:52)
[2022-03-30] MEDS: Tamsulosin HCl 0.4 MG CAP PO SCH (21:53)
[2022-03-30] MEDS: REMDESIVIR 100 MG in Sodium Chloride 0.9% 250 ML 230 ML IV SCH (21:53)
[2022-03-31 04:58] LABS: #Lymphocytes 1.4 thou/uL (1.20-3.40); #Monocytes 0.8 thou/uL (0.11-0.59); #Neutrophils 6.3 thou/uL (1.40-6.50); %Basophils 0.5 % (0.0-1.0); %Eosinophils 0.1 % (0.0-10.0); %Lymphocytes 16.7 % (21.0-51.0); %Monocytes 9.6 % (0.0-10.0); %Neutrophils 73.2 % (42.0-75.0); Hemoglobin 12.4 g/dL (14.0-18.0); Mean Corpuscular HGB CONC 32.8 g/dL (32.0-36.0); Mean Corpuscular Hemoglobin 33.3 pg (27.0-31.0); Mean Platelet Volume 8.6 fL (7.4-10.4); Platelet Count 141 10x3/uL (130-400); RBC Distribution Width 13.7 % (11.5-14.5); Red Blood Cell (RBC) Count 3.71 mill/uL (4.70-6.10); White Blood Cell (WBC) Count 8.6 10x3/uL (4.8-10.8)
[2022-03-31 05:17] LABS: ALT (SGPT) 64 U/L (8-55); AST (SGOT) 47 U/L (5-34); Albumin 2.6 g/dL (3.4-4.8); Alkaline Phosphatase 54 U/L (40-110); Anion Gap 9 mmol/L (10-20); BUN (Urea Nitrogen) 28 mg/dL (8.4-25.7); Bilirubin, Total 0.6 mg/dL (0.2-1.2); Calc. Creatinine Clearance 84 mL/min (70-130); Calcium 7.5 mg/dL (7.8-10.44); Carbon Dioxide 27 mmol/L (23-31); Chloride 107 mmol/L (98-107); Estimated GFR 59; Globulin 2.8 g/dL (2.4-3.5); Glucose 117 mg/dL (83-110); Magnesium 2.1 mg/dL (1.6-2.6); Phosphorus 2.1 mg/dL (2.3-4.7); Potassium 3.4 mmol/L (3.5-5.1); Protein, Total 5.4 g/dL (5.8-8.1); Sodium 140 mmol/L (136-145)
[2022-03-31] MEDS: Albuterol 200 PUFF (6.7GM INHALER) INH SCH ×4 (08:02→17:39)
[2022-03-31] MEDS: Dexamethasone 4 MG TAB PO SCH (09:30)
[2022-03-31] MEDS: Furosemide 40 MG TAB PO SCH (09:30)
[2022-03-31] MEDS: DULoxetine 60 MG CAP PO SCH (09:31)
[2022-03-31] MEDS: Aspirin Chewable 81 MG TAB PO SCH (09:31)
[2022-03-31] MEDS: Amlodipine 5 MG TAB PO SCH ×2 (09:31→19:31)
[2022-03-31] MEDS: Ascorbic Acid 500 mg Chewable Tablet PO SCH (09:31)
[2022-03-31] MEDS: hydrALAZINE 25 MG TAB PO SCH ×3 (09:31→19:31)
[2022-03-31] MEDS: Potassium Chloride 20 MEQ TAB PO SCH ×2 (09:31→16:41)
[2022-03-31] MEDS: Enoxaparin Sodium 40 MG/0.4 ML SYRINGE SC SCH (09:31)
[2022-03-31] MEDS: K-Phos Neutral 250 MG TAB PO SCH ×3 (12:19→19:30)
[2022-03-31] MEDS: VANCOMYCIN 1.75 GM/500 ML BAG 1.75 GM in Premix Bag 1 BAG IVPB SCH (16:41)
[2022-03-31] MEDS: Acetaminophen 325 MG TAB PO PRN (19:30)
[2022-03-31] MEDS: Folic Acid 1 MG TAB PO SCH (19:31)
[2022-03-31] MEDS: Cyanocobalamin (Vitamin B-12) 1,000 MCG TAB PO SCH (19:31)
[2022-03-31] MEDS: Donepezil HCl 10 MG TAB PO SCH (19:31)
[2022-03-31] MEDS: Tamsulosin HCl 0.4 MG CAP PO SCH (19:31)
[2022-03-31] MEDS ORDERED: Dicyclomine 10 MG CAP PO SCH (21:00)
[2022-04-01] MEDS: Albuterol 200 PUFF (6.7GM INHALER) INH SCH ×5 (02:58→20:58)
[2022-04-01 04:48] LABS: #Lymphocytes 1.4 thou/uL (1.20-3.40); #Monocytes 0.7 thou/uL (0.11-0.59); #Neutrophils 6.9 thou/uL (1.40-6.50); %Eosinophils 0.5 % (0.0-10.0); %Lymphocytes 15.7 % (21.0-51.0); %Monocytes 7.3 % (0.0-10.0); %Neutrophils 76.4 % (42.0-75.0); Hemoglobin 11.8 g/dL (14.0-18.0); Mean Corpuscular HGB CONC 32.7 g/dL (32.0-36.0); Mean Corpuscular Hemoglobin 33.2 pg (27.0-31.0); Mean Platelet Volume 8.6 fL (7.4-10.4); Platelet Count 146 10x3/uL (130-400); RBC Distribution Width 13.8 % (11.5-14.5); Red Blood Cell (RBC) Count 3.54 mill/uL (4.70-6.10)
[2022-04-01 05:14] LABS: ALT (SGPT) 53 U/L (8-55); AST (SGOT) 37 U/L (5-34); Albumin 2.5 g/dL (3.4-4.8); Alkaline Phosphatase 52 U/L (40-110); Anion Gap 11 mmol/L (10-20); BUN (Urea Nitrogen) 28 mg/dL (8.4-25.7); Bilirubin, Total 0.6 mg/dL (0.2-1.2); CRP (Inflammatory) 1.19 mg/dL (= or < 0.5); Calc. Creatinine Clearance 80 mL/min (70-130); Calcium 7.8 mg/dL (7.8-10.44); Carbon Dioxide 28 mmol/L (23-31); Chloride 105 mmol/L (98-107); Estimated GFR 56; Globulin 2.8 g/dL (2.4-3.5); Glucose 121 mg/dL (83-110); Potassium 3.5 mmol/L (3.5-5.1); Protein, Total 5.3 g/dL (5.8-8.1); Sodium 140 mmol/L (136-145)
[2022-04-01] MEDS: hydrALAZINE 25 MG TAB PO SCH ×3 (08:28→21:09)
[2022-04-01] MEDS: Enoxaparin Sodium 40 MG/0.4 ML SYRINGE SC SCH (08:28)
[2022-04-01] MEDS: Amlodipine 5 MG TAB PO SCH ×2 (08:29→21:09)
[2022-04-01] MEDS: Ascorbic Acid 500 mg Chewable Tablet PO SCH (08:29)
[2022-04-01] MEDS: Furosemide 40 MG TAB PO SCH (08:29)
[2022-04-01] MEDS: Potassium Chloride 20 MEQ TAB PO SCH ×2 (08:29→17:22)
[2022-04-01] MEDS: K-Phos Neutral 250 MG TAB PO SCH ×4 (08:29→17:22)
[2022-04-01] MEDS: Dexamethasone 1 MG TAB PO SCH (08:29)
[2022-04-01] MEDS: DULoxetine 60 MG CAP PO SCH (08:29)
[2022-04-01] MEDS: Aspirin Chewable 81 MG TAB PO SCH (08:31)
[2022-04-01] MEDS ORDERED: Potassium Chloride 20 MEQ TAB PO SCH (12:45)
[2022-04-01 16:36] LABS: Vancomycin, Trough 21.9 ug/mL
[2022-04-01] MEDS ORDERED: Vancomycin 1.5 GRAM/300 ML BAG 1.5 GM in Premix Bag 1 BAG IVPB SCH (18:00)
[2022-04-01] MEDS: Donepezil HCl 10 MG TAB PO SCH (21:08)
[2022-04-01] MEDS: Acetaminophen 325 MG TAB PO PRN (21:08)
[2022-04-01] MEDS: Folic Acid 1 MG TAB PO SCH (21:09)
[2022-04-01] MEDS: Tamsulosin HCl 0.4 MG CAP PO SCH (21:09)
[2022-04-01] MEDS: Cyanocobalamin (Vitamin B-12) 1,000 MCG TAB PO SCH (21:09)
[2022-04-02 05:04] LABS: #Eosinphils 0.2 thou/uL (0.0-0.7); #Lymphocytes 1.8 thou/uL (1.20-3.40); #Monocytes 0.9 thou/uL (0.11-0.59); #Neutrophils 6.9 thou/uL (1.40-6.50); %Basophils 0.1 % (0.0-1.0); %Eosinophils 1.8 % (0.0-10.0); %Lymphocytes 18.5 % (21.0-51.0); %Monocytes 8.8 % (0.0-10.0); %Neutrophils 70.9 % (42.0-75.0); Hemoglobin 12.3 g/dL (14.0-18.0); Mean Corpuscular HGB CONC 33.1 g/dL (32.0-36.0); Mean Corpuscular Hemoglobin 33.8 pg (27.0-31.0); Mean Platelet Volume 8.5 fL (7.4-10.4); Platelet Count 155 10x3/uL (130-400); RBC Distribution Width 14.2 % (11.5-14.5); Red Blood Cell (RBC) Count 3.64 mill/uL (4.70-6.10); White Blood Cell (WBC) Count 9.7 10x3/uL (4.8-10.8)
[2022-04-02 05:27] LABS: Anion Gap 11 mmol/L (10-20); BUN (Urea Nitrogen) 28 mg/dL (8.4-25.7); Calc. Creatinine Clearance 89 mL/min (70-130); Calcium 7.9 mg/dL (7.8-10.44); Carbon Dioxide 29 mmol/L (23-31); Chloride 106 mmol/L (98-107); Estimated GFR 63; Glucose 93 mg/dL (83-110); Magnesium 1.9 mg/dL (1.6-2.6); Phosphorus 3.7 mg/dL (2.3-4.7); Potassium 3.5 mmol/L (3.5-5.1); Sodium 142 mmol/L (136-145)
[2022-04-02] MEDS: Albuterol 200 PUFF (6.7GM INHALER) INH SCH ×3 (06:16→16:08)
[2022-04-02] MEDS ORDERED: Magnesium 2 GM/50 ML(in water) 2 GM in Premix Bag 1 BAG IVPB SCH (08:00)
[2022-04-02] MEDS ORDERED: Potassium Chloride 20 MEQ TAB PO SCH ×2 (08:00→09:00)
[2022-04-02] MEDS: Dexamethasone 1 MG TAB PO SCH (09:22)
[2022-04-02] MEDS: hydrALAZINE 25 MG TAB PO SCH ×2 (09:22→16:08)
[2022-04-02] MEDS: Furosemide 40 MG TAB PO SCH (09:22)
[2022-04-02] MEDS: Amlodipine 5 MG TAB PO SCH (09:23)
[2022-04-02] MEDS: Aspirin Chewable 81 MG TAB PO SCH (09:23)
[2022-04-02] MEDS: Potassium Chloride 20 MEQ TAB PO SCH (09:23)
[2022-04-02] MEDS: DULoxetine 60 MG CAP PO SCH (09:23)
[2022-04-02] MEDS: Enoxaparin Sodium 40 MG/0.4 ML SYRINGE SC SCH (09:23)
[2022-04-02] MEDS: Ascorbic Acid 500 mg Chewable Tablet PO SCH (09:23)
[2022-04-02 16:11] VITALS: BP 128/63; TEMP 98
== END 2022-04-02 19:41 | DRG 871 ==
LOC: ERS 13:01 → ERHOLD 17:17 → 2NO 03-27 20:53
PROVIDERS: ADMIT Internal Medicine; ATTEND Internal Medicine
PROC: 8E0ZXY6 Isolation (ICD-10-PCS; principal; 2022-03-26)
PROC: 3E03329 Introduction of Other Anti-infective into Peripheral Vein, Percutaneous Approach (ICD-10-PCS; 2022-03-26)
PROC: XW033E5 Introduction of Remdesivir Anti-infective into Peripheral Vein, Percutaneous Approach, New Technology Group 5 (ICD-10-PCS; 2022-03-26)
DX: A41.89 Other specified sepsis (principal); G93.41 Metabolic encephalopathy; J12.82 Pneumonia due to coronavirus disease 2019; U07.1 COVID-19; J96.01 Acute respiratory failure with hypoxia; I21.A1 Myocardial infarction type 2; I47.29 Other ventricular tachycardia; Z66 Do not resuscitate; R65.20 Severe sepsis without septic shock; I12.9 Hypertensive chronic kidney disease with stage 1 through stage 4 chronic kidney disease, or unspecified chronic kidney disease; G30.9 Alzheimer's disease, unspecified; F02.80 Dementia in other diseases classified elsewhere, unspecified severity, without behavioral disturbance, psychotic disturbance, mood disturbance, and anxiety; E03.9 Hypothyroidism, unspecified; Z96.653 Presence of artificial knee joint, bilateral; I49.5 Sick sinus syndrome; N18.30 Chronic kidney disease, stage 3 unspecified; E87.6 Hypokalemia; E83.42 Hypomagnesemia; E83.39 Other disorders of phosphorus metabolism; R33.9 Retention of urine, unspecified; Z87.891 Personal history of nicotine dependence; Z79.82 Long term (current) use of aspirin; Z79.899 Other long term (current) drug therapy; Z86.73 Personal history of transient ischemic attack (TIA), and cerebral infarction without residual deficits
CPT/HCPCS: 36415; 36556; 36600; 51702; 70450; 71045; 80048; 80053; 80076; 80202; 81003; 81015; 82553; 82805; 83605; 83735; 84100; 84443; 84484; 85025; 86140; 87040; 87077; 87086; 87149; 87186; 93005; 93306; 96374; 96375; J0248; J0360; J0692; J1100; J1650; J1940; J3370; J3370-JW; J3475; J3490; J7050; J8540; S0028; U0002

== ENCOUNTER 2022-12-13 14:39 | Observation (INO) | payer MEDICARE, MEDICAID ==
[2022-12-13 15:31] LABS: #Basophils 0.1 thou/uL (0.0-0.2); #Eosinphils 0.3 thou/uL (0.0-0.7); #Monocytes 0.6 thou/uL (0.11-0.59); #Neutrophils 3.9 thou/uL (1.40-6.50); %Basophils 0.7 % (0.0-1.0); %Eosinophils 4.3 % (0.0-10.0); %Lymphocytes 28.7 % (21.0-51.0); %Monocytes 9.3 % (0.0-10.0); %Neutrophils 56.6 % (42.0-75.0); Hematocrit 35.9 % (42.0-52.0); Hemoglobin 11.7 g/dL (14.0-18.0); Mean Corpuscular HGB CONC 32.6 g/dL (32.0-36.0); Mean Corpuscular Volume 101.1 fl (78.0-98.0); Mean Platelet Volume 10.1 fL (7.4-10.4); Platelet Count 164 10x3/uL (130-400); RBC Distribution Width 14.6 % (11.5-14.5); Red Blood Cell (RBC) Count 3.55 mill/uL (4.70-6.10); White Blood Cell (WBC) Count 6.9 10x3/uL (4.8-10.8)
[2022-12-13 15:56] LABS: ALT (SGPT) 10 U/L (8-55); AST (SGOT) 16 U/L (5-34); Albumin 2.8 g/dL (3.4-4.8); Alkaline Phosphatase 66 U/L (40-110); Anion Gap 12 mmol/L (10-20); BUN (Urea Nitrogen) 24 mg/dL (8.4-25.7); Bilirubin, Total 0.3 mg/dL (0.2-1.2); Calc. Creatinine Clearance 0 mL/min (70-130); Carbon Dioxide 27 mmol/L (23-31); Chloride 106 mmol/L (98-107); Estimated GFR 49; Globulin 3.3 g/dL (2.4-3.5); Glucose 113 mg/dL (83-110); Potassium 3.8 mmol/L (3.5-5.1); Protein, Total 6.1 g/dL (5.8-8.1); Sodium 141 mmol/L (136-145)
[2022-12-13] MEDS ORDERED: Zolpidem Tartrate 5 MG TAB PO PRN (21:11)
[2022-12-13] MEDS ORDERED: Senokot S 8.6-50 MG TAB PO PRN (21:11)
[2022-12-13] MEDS ORDERED: Acetaminophen 325 MG TAB PO PRN (21:11)
[2022-12-13] MEDS ORDERED: Ondansetron PF 4 MG/2 ML Vial IVP PRN (21:11)
[2022-12-13] MEDS ORDERED: Albuterol 200 PUFF (6.7GM INHALER) INH PRN (21:29)
[2022-12-13] MEDS ORDERED: Furosemide 40 MG/4 ML VIAL SLOW IVP SCH (21:30)
[2022-12-13] MEDS: Albumin 25% 25 GM/100 ML BOT IVPB SCH (23:35)
[2022-12-14 02:48] VITALS: BMI 39.8
[2022-12-14 05:11] LABS: #Basophils 0.1 thou/uL (0.0-0.2); #Eosinphils 0.2 thou/uL (0.0-0.7); #Monocytes 0.7 thou/uL (0.11-0.59); #Neutrophils 3.7 thou/uL (1.40-6.50); %Basophils 0.9 % (0.0-1.0); %Eosinophils 3.3 % (0.0-10.0); %Lymphocytes 29.8 % (21.0-51.0); %Monocytes 9.8 % (0.0-10.0); Hematocrit 34.4 % (42.0-52.0); Hemoglobin 11.2 g/dL (14.0-18.0); Mean Corpuscular HGB CONC 32.6 g/dL (32.0-36.0); Mean Corpuscular Volume 101.5 fl (78.0-98.0); Mean Platelet Volume 10.1 fL (7.4-10.4); Platelet Count 140 10x3/uL (130-400); RBC Distribution Width 14.8 % (11.5-14.5); Red Blood Cell (RBC) Count 3.39 mill/uL (4.70-6.10); White Blood Cell (WBC) Count 6.6 10x3/uL (4.8-10.8)
[2022-12-14 05:25] LABS: Anion Gap 13 mmol/L (10-20); BUN (Urea Nitrogen) 24 mg/dL (8.4-25.7); Calc. Creatinine Clearance 75 mL/min (70-130); Calcium 9.4 mg/dL (7.8-10.44); Carbon Dioxide 26 mmol/L (23-31); Chloride 105 mmol/L (98-107); Estimated GFR 50; Glucose 97 mg/dL (83-110); Potassium 3.3 mmol/L (3.5-5.1); Sodium 141 mmol/L (136-145)
[2022-12-14] MEDS: Albumin 25% 25 GM/100 ML BOT IVPB SCH ×3 (06:16→18:28)
[2022-12-14] MEDS: Furosemide 40 MG/4 ML VIAL SLOW IVP SCH ×2 (06:16→13:24)
[2022-12-14] MEDS ORDERED: DULoxetine 60 MG CAP PO SCH (09:00)
[2022-12-14] MEDS ORDERED: Amlodipine 5 MG TAB PO SCH (09:00)
[2022-12-14] MEDS ORDERED: Polyethylene Glycol 3350 17 GM Packet PO SCH (09:00)
[2022-12-14] MEDS ORDERED: Famotidine 20 MG TAB PO SCH (09:00)
[2022-12-14] MEDS ORDERED: Aspirin 81 mg Enteric Coated Tablet PO SCH (09:00)
[2022-12-14] MEDS: hydrALAZINE 25 MG TAB PO SCH ×2 (09:21→14:38)
[2022-12-14] MEDS: Potassium Chloride 20 MEQ TAB PO SCH ×2 (09:22→17:26)
[2022-12-14 19:45] VITALS: BP 164/72; TEMP 98.2
[2022-12-14] MEDS ORDERED: Donepezil HCl 10 MG TAB PO SCH (21:00)
[2022-12-14] MEDS ORDERED: Tamsulosin HCl 0.4 MG CAP PO SCH (21:00)
== END 2022-12-14 20:15 ==
LOC: ERS 14:39 → 2SW 19:44 → 2SE 22:41
PROVIDERS: ADMIT Specialist; ATTEND Specialist
DX: T82.118A Breakdown (mechanical) of other cardiac electronic device, initial encounter (principal); F03.90 Unspecified dementia, unspecified severity, without behavioral disturbance, psychotic disturbance, mood disturbance, and anxiety; R00.1 Bradycardia, unspecified; E03.9 Hypothyroidism, unspecified; I89.0 Lymphedema, not elsewhere classified; N40.1 Benign prostatic hyperplasia with lower urinary tract symptoms; N18.32 Chronic kidney disease, stage 3b; R53.83 Other fatigue; I44.7 Left bundle-branch block, unspecified; I42.9 Cardiomyopathy, unspecified; E88.09 Other disorders of plasma-protein metabolism, not elsewhere classified; K21.9 Gastro-esophageal reflux disease without esophagitis; M54.9 Dorsalgia, unspecified; E87.70 Fluid overload, unspecified; G89.29 Other chronic pain; M10.9 Gout, unspecified; Z98.890 Other specified postprocedural states; Z87.891 Personal history of nicotine dependence; Z88.8 Allergy status to other drugs, medicaments and biological substances; Z79.82 Long term (current) use of aspirin; Z79.899 Other long term (current) drug therapy
CPT/HCPCS: 71045; 80048; 80053; 85025 ×2; 93005; 99285; P9047 ×2; 36415; 96372; 96374; 96375; 96376; G0378; J1650; J1940